=== PATIENT | male | born 1960 | race Caucasian/White ===

== ENCOUNTER 2016-10-30 17:44 | Observation (INO) ==
[2016-10-30] MEDS ORDERED: 0.9 % SODIUM CHLORIDE 1,000 ML IV ONE (17:54)
[2016-10-30] MEDS ORDERED: LACTATED RINGERS 1,000 ML IV ONE (18:34)
[2016-10-30] MEDS ORDERED: INSULIN GLARGINE, HUMAN 1 UNIT/0.01 ML SQ ONE (18:35)
[2016-10-30] MEDS ORDERED: INSULIN REGULAR, HUMAN 1 UNIT/0.01 ML UNIT IV ONE (18:35)
[2016-10-30] MEDS ORDERED: PANTOPRAZOLE 40 MG VIAL IV ONE (18:36)
[2016-10-30] MEDS ORDERED: ONDANSETRON 4 MG/2 ML VIAL IV ONE (18:37)
[2016-10-30] MEDS ORDERED: HYDROmorphone 2 MG/ML SYRINGE IV PRN (18:37)
--- NOTE | 2016-10-30 18:39 | Emergency Department Note ---
General Adult HPI - General Chief complaint: Blood Sugar Problem Time Seen by Provider: 10/30/16 18:33 Source: patient Mode of arrival: EMS Limitations: no limitations - History of Present Illness HPI Narrative: Patient seen at [facility] yesterday for similar presentation, he was hydrated and discharged to home. He does have a history of diabetes, some compliance issues, he states he takes Lantus 4 times a day. Today's blood sugar was high and he decided to come in, called the ambulance. He was having midepigastric abdominal pain as well. Not able to eat very much in the way of food, he does have nausea but no vomiting, no diarrhea. Abdominal pain is mostly mid epigastric. Denies any trauma is had no fevers or chills, denies any chest pain shortness of breath or cough. - Related Data Home Medications Medication Instructions Recorded Confirmed albuterol sulfate HFA 90 2 puff INHALATION Q4H PRN g 08/03/16 09/13/16 mcg/actuation aerosol inhaler clopidogrel 75 mg tablet 75 mg PO QDAY 08/03/16 09/13/16 gabapentin 600 mg tablet 600 mg PO TID 08/03/16 09/13/16 glipizide 10 mg tablet 10 mg PO QDAY 08/03/16 09/13/16 insulin aspart 100 unit/mL 10 unit SUB-Q TID ml 08/03/16 09/13/16 subcutaneous solution insulin glargine 100 unit/mL 20 unit SUB-Q QDAY ml 08/03/16 09/13/16 subcutaneous solution lisinopril 5 mg tablet 5 mg PO QDAY 08/03/16 09/13/16 mirtazapine 30 mg tablet 30 mg PO QDAY tab 08/03/16 09/13/16 pregabalin 200 mg capsule 200 mg PO BID cap 08/03/16 09/13/16 rosuvastatin 10 mg tablet 10 mg PO QDAY 08/03/16 09/13/16 sertraline 50 mg tablet 50 mg PO QDAY 08/03/16 09/13/16 tiotropium bromide 18 mcg capsule 1 cap INHALATION QDAY 08/03/16 09/13/16 with inhalation device tizanidine 4 mg capsule 8 mg PO TID cap 08/03/16 09/13/16 trazodone 150 mg tablet 150 mg PO QHS PRN 08/03/16 09/13/16 umeclidinium 62.5 mcg/actuation 1 inh INHALATION Q24H 08/03/16 09/13/16 blister powder for inhalation Previous Rx's Medication Instructions Recorded hydroxychloroquine 200 mg tablet 200 mg PO BID #60 tab 09/13/16 nabumetone 500 mg tablet 500 mg PO BID #60 tab 09/13/16 Allergies Allergy/AdvReac Type Severity Reaction Status Date / Time NKDA Allergy Unknown None Stated Uncoded 09/13/16 08:08 Review of Systems All systems ED: reviewed and negative except as stated. Past Medical History - Past Medical History Source: nursing notes reviewed Medical history: Reports: arthritis, diabetes, kidney stones, liver disease, renal disease Surgical history ED: Reports: non-contributory Family history: Reports: no significant family history - Social History smoking status: Current every day smoker Alcohol use: Reports: Rarely Drug use: Reports: none Physical Exam - General Limitations: no limitations General appearance: alert, in no apparent distress, other (In general appears quite a bit old older than stated age) - Head Head exam: atraumatic, normocephalic - Eye Eye exam: Present: normal appearance, PERRL, EOMI - ENT ENT exam: normal exam, normal oropharynx, mucous membranes dry, TM's normal bilaterally - Neck Neck exam: Present: normal inspection, full ROM, trachea midline - Chest Chest inspection: Present: normal inspection, symmetric chest wall rise - Respiratory Respiratory exam: Present: normal lung sounds bilaterally. Absent: respiratory distress, wheezes - Cardiovascular Cardiovascular exam: Present: regular rate, normal rhythm - Abdominal Exam Abdominal exam: Present: soft, tenderness, normal bowel sounds. Absent: distention, guarding Abdominal tenderness: Present: epigastrium, mild - exam: Present: normal inspection - Extremities Exam Extremities exam: Present: normal inspection - Back Exam Back exam: Present: normal inspection. Absent: CVA tenderness (R), CVA tenderness (L) - Neurological Exam Neurological exam: Present: alert, oriented X3 - Psychiatric Psychiatric exam: Present: normal affect - Skin Skin exam: Present: warm, dry, intact Course Vital Signs Temperature 98.7 F 10/30/16 17:45 Pulse Rate 75 10/30/16 17:45 Respiratory Rate 24 H 10/30/16 17:45 Blood Pressure 106/63 10/30/16 17:45 Pulse Oximetry (%) 95 10/30/16 17:45 Temperature 97.6 F 10/30/16 22:52 Pulse Rate 63 10/30/16 22:38 Respiratory Rate 14 10/30/16 20:01 Blood Pressure 104/56 10/30/16 22:31 Pulse Oximetry (%) 89 L 10/30/16 22:38 Medical Decision Making - MDM Narrative Medical decision making narrative: Discussed the case with Dr. Bentley, at this point there is no logical explanation of why his blood pressure is low and we did start him on dopamine drip and is currently on 5 mics per kilo per minute and this did keep his blood pressure in the 110 range. He looks clinically well, his abdominal exam does not suggest any acute intra-abdominal pathology, urine test is still pending however. His CRP was elevated however his white blood cell count was normal, rectal exam was negative with heme negative stools. Prostate was nontender. We will continue IV fluids and monitor his sugars, he will need to be admitted observation at this point for #1 hypotension #2 hyperglycemia. - Medical Records Medical records reviewed: Yes I reviewed the patient's medical records. - Lab Data Lab results reviewed: Yes I reviewed the patient's lab results. Result diagrams: 10/30/16 18:08 10/30/16 18:08 Lab Results 10/30/16 10/30/16 10/30/16 Range/Units 18:08 18:08 18:08 WBC 10.0 (4.5-11.0) K/mcL RBC 4.63 (4.50-5.90) M/mcL Hgb 13.1 L (13.5-16.5) g/dL Hct 37.0 L (41.0-55.0) % MCV 79.9 L (80.0-100.0) fL MCH 28.3 (26.0-34.0) pg MCHC 35.5 (31.0-36.0) g/dL RDW 13.0 (11.5-14.5) % Plt Count 159 (140-440) K/mcL MPV 11.7 H (7.4-10.4) fL Gran % 72.6 (38.0-78.0) % Lymph % (Auto) 20.0 (15.5-49.0) % Limestone % (Auto) 6.0 (1.0-12.0) % Eos % (Auto) 1.0 (0.0-7.0) % Baso % (Auto) 0.4 (0.0-2.0) % Gran # 7.3 (1.8-8.0) K/mcL Lymph # (Auto) 2.0 (1.5-4.8) K/mcL Limestone # (Auto) 0.6 (0.1-0.9) K/mcL Eos # (Auto) 0.1 (0.0-0.7) K/mcL Baso # (Auto) 0 (0.0-0.3) K/mcL VBG Lactic Acid (0.5-2.2) mmol/L Sodium 129 L (133-145) mmol/L Potassium 3.6 (3.3-5.1) mmol/L Chloride 91 L (96-108) mmol/L Carbon Dioxide 22 (22-30) mmol/L Anion Gap 16.0 (8-16) BUN 11 (6-20) mg/dl Creatinine 0.7 (0.7-1.2) mg/dl GFR Calculation 106 Glucose 406 H (70-105) mg/dL Osmolality (280-300) mOSM/kg Calcium 9.2 (8.6-10.4) mg/dl Total Bilirubin 0.5 (0.0-1.0) mg/dL AST < 5 (0-37) U/l ALT < 5 (0-40) U/l Alkaline Phosphatase 146 H (39-117) U/L Troponin T < 0.01 (0-0.03) ng/ml C-Reactive Protein (0.0-0.8) mg/dl NT-Pro-B Natriuret Pep (0-125) pg/ml Total Protein 6.9 (5.9-8.4) gm/dL Albumin 3.2 (3.2-5.2) gm/dL Globulin 3.7 (2.2-3.7) gm/dL Albumin/Globulin Ratio 0.9 L (1.0-2.3) 10/30/16 10/30/16 10/30/16 Range/Units 18:08 18:46 18:46 WBC (4.5-11.0) K/mcL RBC (4.50-5.90) M/mcL Hgb (13.5-16.5) g/dL Hct (41.0-55.0) % MCV (80.0-100.0) fL MCH (26.0-34.0) pg MCHC (31.0-36.0) g/dL RDW (11.5-14.5) % Plt Count (140-440) K/mcL MPV (7.4-10.4) fL Gran % (38.0-78.0) % Lymph % (Auto) (15.5-49.0) % Limestone % (Auto) (1.0-12.0) % Eos % (Auto) (0.0-7.0) % Baso % (Auto) (0.0-2.0) % Gran # (1.8-8.0) K/mcL Lymph # (Auto) (1.5-4.8) K/mcL Limestone # (Auto) (0.1-0.9) K/mcL Eos # (Auto) (0.0-0.7) K/mcL Baso # (Auto) (0.0-0.3) K/mcL VBG Lactic Acid 1.1 (0.5-2.2) mmol/L Sodium (133-145) mmol/L Potassium (3.3-5.1) mmol/L Chloride (96-108) mmol/L Carbon Dioxide (22-30) mmol/L Anion Gap (8-16) BUN (6-20) mg/dl Creatinine (0.7-1.2) mg/dl GFR Calculation Glucose (70-105) mg/dL Osmolality 292 (280-300) mOSM/kg Calcium (8.6-10.4) mg/dl Total Bilirubin (0.0-1.0) mg/dL AST (0-37) U/l ALT (0-40) U/l Alkaline Phosphatase (39-117) U/L Troponin T (0-0.03) ng/ml C-Reactive Protein 9.5 H (0.0-0.8) mg/dl NT-Pro-B Natriuret Pep 73.0 (0-125) pg/ml Total Protein (5.9-8.4) gm/dL Albumin (3.2-5.2) gm/dL Globulin (2.2-3.7) gm/dL Albumin/Globulin Ratio (1.0-2.3) - Radiology Data Radiology results reviewed: Yes I reviewed the patient's radiology results. Disposition Disposition: Xfer As Outpt/Obs ([facility]) Condition: Fair Referrals: Kinjal Hairston DO [Primary Care Provider] -
[2016-10-30 18:59] LABS: Albumin 3.2 gm/dL (3.2-5.2); Albumin/Globulin Ratio 0.9 (1.0-2.3); Alkaline Phosphatase 146 U/L (39-117); Blood Urea Nitrogen 11 mg/dl (6-20)
[2016-10-30 19:08] LABS: ALT/SGPT < 5 U/l (0-40)
[2016-10-30] MEDS ORDERED: 0.9 % SODIUM CHLORIDE 250 ML IV SCH (19:15)
[2016-10-30] MEDS ORDERED: DOPamine 400 MG in PREMIX 1 BAG IV SCH (19:15)
[2016-10-30 19:22] LABS: Basophils # (Auto) 0 K/mcL (0.0-0.3); Basophils % (Auto) 0.4 % (0.0-2.0); Eosinophils # (Auto) 0.1 K/mcL (0.0-0.7); Granulocytes % (Auto) 72.6 % (38.0-78.0); Mean Cell Volume 79.9 fL (80.0-100.0); Mean Corpuscular HGB Conc 35.5 g/dL (31.0-36.0); Mean Corpuscular Hemoglobin 28.3 pg (26.0-34.0); Monocytes # (Auto) 0.6 K/mcL (0.1-0.9); Platelet Count 159 K/mcL (140-440); RBC 4.63 M/mcL (4.50-5.90)
[2016-10-30 19:42] LABS: C-Reactive Protein 9.5 mg/dl (0.0-0.8)
--- NOTE | 2016-10-30 23:27 | Internal Med History&Physical ---
Medical - H&P: HPI Patient information: Note initiated : 10/30/16 at 11:27 pm Patient: Jordi Nice 56 y/o M admitted on for Cough. History of present illness: Mr. Nice is a 56 year old man with type 2 diabetes. This has recently been poorly controlled. He apparently was at [facility] yesterday with severe hyperglycemia. He was given IV fluids and instructions on increasing his insulin. He presented back to our emergency room this evening, complaining of abdominal pain and nausea, which her symptoms he often gets when his blood sugar is high. He was given fluids and insulin in the emergency room, but was also found to have significant hypotension with blood pressures as low as the 60s systolic. He is now admitted for ongoing fluid resuscitation, further workup and treatment , management of his diabetes. The patient is a somewhat difficult interview. He appears slightly lethargic. He denies recent fever or chills, headaches or dizziness, new eye or ear symptoms. He denies sore throat or cough. He does report that he is having some generalized chest discomfort and feels mildly short of breath, for about 1 month now. He also reports significant abdominal discomfort, but no nausea or vomiting or diarrhea. He denies dysuria. He admits that he was not taking his insulin correctly. He apparently was having low blood glucoses at one point, and he says his primary care physician advised him to stop using his NovoLog with meals, and just use Lantus twice a day. He apparently misunderstood her, but then did not take any insulin at all for a short time. Then when he realized his blood sugars were very high, he started using Lantus every 4 hours while awake. He did not really understand the difference between long-acting and short acting insulin. Interestingly, he is also been started on an anti-inflammatory drug, nabumetone , recently by his rail grinder, for severe hand pain. This is actually a high risk drug in a diabetic with known underlying coronary disease. He was started on dopamine and IV fluids in the emergency room. On arrival to the intensive care unit, dopamine was discontinued, and he was started on levo fed. Medical History Fibromyalgia (Acute) Diabetic cheirarthropathy (Acute) Encounter for long-term (current) use of high-risk medication (Acute) Raynaud phenomenon (Acute) Connective tissue disease (Suspected) Buerger's disease (Chronic) BPH (benign prostatic hyperplasia) (Chronic) CAD (coronary artery disease) (Chronic) Colitis, ulcerative (Chronic) Diastasis of muscle (Chronic) Hyperglyceridemia (Chronic) Low back pain (Chronic) Obesity (Chronic) Raynauds syndrome (Chronic) Seizures (Chronic) Sexual dysfunction (Chronic) AUGUSTUS positive (Acute) Diabetes mellitus (Chronic) Diabetic renal disease (Chronic) Diabetic neuropathy (Chronic) Depressive disorder (Chronic) Tobacco dependence syndrome (Chronic) Insomnia (Chronic) Obstructive sleep apnea of adult (Chronic) Chronic pain (Chronic 11/26/12) Epilepsy (Chronic 11/26/12) Glaucoma (Chronic) Hypertensive retinopathy (Chronic) Cataract (Chronic) Essential hypertension (Chronic) Chronic obstructive lung disease (Chronic) Coronary atherosclerosis (Chronic) GERD (gastroesophageal reflux disease) (Chronic) Multiple joint pain (Acute) Lumbar radiculopathy (Chronic) Chronic back pain (Chronic) Degenerative, intervertebral disc (Chronic) Hypoxia (Chronic) 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 twice daily gabapentin 600 mg PO TID glipizide 10 mg PO QDAY insulin aspart (Novolog) --patient has not been taking this at all. insulin glargine (Lantus) 20 units -every 4-6 hours. lisinopril 5 mg PO QDAY mirtazapine 30 mg PO QDAY pregabalin (Lyrica) 200 mg PO BID rosuvastatin 10 mg PO QDAY sertraline 50 mg PO QDAY tiotropium bromide (Spiriva with HandiHaler) 1 cap Inhalation QDAY tizanidine 8 mg (2 x 4 mg) PO TID trazodone 150 mg PO QHS PRN umeclidinium 62.5 mcg/actuation (Incruse Ellipta) 1 inh Inhalation Q24H Allergies/Adverse Reactions NKDA Allergy Family History Mother , age 54 Malignant tumor of pancreas Father , age 70 Myocardial infarction He reports his brother also with diabetes and pancreatic cancer. He says a niece recently with diabetes and premature NC. Social History education level: high school; he lives with his significant other of 10+ years. occupational status: unemployed sexually active: Yes He is a current smoker, and smokes up to 1 pack per day. He previously drank alcohol heavily, but says he no longer drinks alcohol. He denies drug use, other than occasional marijuana.. Medical - H&P: Meds Home Medications Medication Instructions Recorded Confirmed Type albuterol sulfate HFA 90 2 puff INHALATION Q4H PRN g 08/03/16 09/13/16 History mcg/actuation aerosol inhaler clopidogrel 75 mg tablet 75 mg PO QDAY 08/03/16 09/13/16 History gabapentin 600 mg tablet 600 mg PO TID 08/03/16 09/13/16 History lisinopril 5 mg tablet 5 mg PO QDAY 08/03/16 09/13/16 History mirtazapine 30 mg tablet 30 mg PO QDAY tab 08/03/16 09/13/16 History pregabalin 200 mg capsule 200 mg PO BID cap 08/03/16 09/13/16 History rosuvastatin 10 mg tablet 10 mg PO QDAY 08/03/16 09/13/16 History sertraline 50 mg tablet 50 mg PO QDAY 08/03/16 09/13/16 History tiotropium bromide 18 mcg capsule 1 cap INHALATION QDAY 08/03/16 09/13/16 History with inhalation device tizanidine 4 mg capsule 8 mg PO TID cap 08/03/16 09/13/16 History trazodone 150 mg tablet 150 mg PO QHS PRN 08/03/16 09/13/16 History umeclidinium 62.5 mcg/actuation 1 inh INHALATION Q24H 08/03/16 09/13/16 History blister powder for inhalation hydroxychloroquine 200 mg tablet 200 mg PO BID #60 tab 09/13/16 09/13/16 Rx nabumetone 500 mg tablet 500 mg PO BID #60 tab 09/13/16 09/13/16 Rx Accu-Chek 1 each FS Q4 strip 10/31/16 Rx Acetaminophen [Tylenol] 650 mg PO Q4-6HP PRN tablet 06/28/17 Rx Gabapentin [Neurontin] 600 mg PO TID capsule 10/31/16 Rx Insulin Aspart [Novolog] 10 unit SUB-Q TIDAC #1 ml 10/31/16 Rx Insulin Glargine, Human [Lantus] 25 unit SUB-Q BID #1 ml 10/31/16 Rx Allergies Allergy/AdvReac Type Severity Reaction Status Date / Time NKDA Allergy Unknown None Stated Uncoded 09/13/16 08:08 Medical - H&P: Exam - Constitutional Vitals: Temp Pulse Resp BP Pulse Ox 97.6 F 63 14 104/56 89 L 10/30/16 22:52 10/30/16 22:38 10/30/16 20:01 10/30/16 22:31 10/30/16 22:38 On exam, the patient was fairly lethargic. Pressures in the emergency room ranged from 73-95/32-52. O2 saturation was 89% on arrival. Head: Normocephalic, atraumatic. Ears: Bilateral ear canals are mostly blocked by cerumen. Eyes: He does have a disconjugate gaze. Pupils appear round and reactive, anicteric. Pharynx: Appears clear. Mucosa is dry. He is edentulous. Neck: Appears supple, without obvious lymphadenopathy, JVD, thyromegaly, bruits. Cardiac exam shows regular rate and rhythm, with normal S1 and S2. There are no obvious murmurs, rubs, gallops. Lungs: Clear to auscultation, without obvious rales, rhonchi, wheezes. Abdomen: Is obese, but soft. He does complain of tenderness, particularly in the epigastric area, with palpation. There is otherwise no guarding or rebound. Bowel sounds are active. Extremities: Shows puffy edema of his feet and ankles. There is no obvious cyanosis or clubbing. Neurologic exam: The patient is lethargic. He tends to fall asleep mid sentence while answering my questions. He is otherwise calm and cooperative. Motor exam is grossly nonfocal. Skin exam did not show any rashes or other worrisome lesions. Medical - H&P: Reslt - Labs CBC & Chem 7: 10/31/16 03:57 10/31/16 03:57 Labs: Short CBC 10/30/16 Range/Units 18:08 WBC 10.0 (4.5-11.0) K/mcL Hgb 13.1 L (13.5-16.5) g/dL Hct 37.0 L (41.0-55.0) % Plt Count 159 (140-440) K/mcL BMP 10/30/16 18:08 Sodium 129 L Potassium 3.6 Chloride 91 L Carbon Dioxide 22 BUN 11 Creatinine 0.7 Glucose 406 H Calcium 9.2 Cardiac Enzymes 10/30/16 Range/Units 18:08 Troponin T < 0.01 (0-0.03) ng/ml Liver Function 10/30/16 Range/Units 18:08 Total Bilirubin 0.5 (0.0-1.0) mg/dL AST < 5 (0-37) U/l ALT < 5 (0-40) U/l Alkaline Phosphatase 146 H (39-117) U/L Albumin 3.2 (3.2-5.2) gm/dL Lactic acid is normal at 1.1 C-reactive protein is elevated at 9.5. BNP is normal at 73. Troponin is normal at less than 0.01. EKG: Shows normal sinus rhythm at about 70, with no acute ST-T changes Chest x-ray: He has borderline cardiomegaly. Pulmonary vessels showed mild cephalization, suggestive of mild CHF. Medical - H&P: A/P (1) Hypotension Status: Acute (2) Diabetic hyperosmolar non-ketotic state Status: Acute (3) Fibromyalgia Status: Chronic (4) CAD (coronary artery disease) Status: Chronic (5) Chronic obstructive lung disease Status: Chronic - Narrative A/P Narrative: #1. Cardiac. -Patient presents with persistent hypotension, uncertain cause. Initial cardiac enzymes are normal. He may be dehydrated related to ongoing hyperglycemia. There is no current sign of infection. -Admit to ICU/telemetry. -IV vasopressors as needed. IV fluids. The patient appears critically ill, but I suspect he will turn around quickly, and be discharged in less than 48 hours. He is therefore placed in an observation status. Blood and urine cultures. -If he does not improve by tomorrow, get urgent echocardiogram for follow-up, although he had one just a few weeks ago. Check pro-calcitonin level. 2. CODE STATUS: Full code. 3. DVT prophylaxis: Subcu heparin. 4. Pulmonary. -History of COPD and obstructive sleep apnea. Resume CPAP when able, as well as nighttime oxygen. He apparently is on home O2 at night. 5. Rheumatologic. -History of fibromyalgia and Buerger's disease, and possible mixed connective tissue disorder. -Rheumatology had started him on an NSAID, but I feel this is a very high risk med for him, given his diabetes, renal disease, heart disease. 6. Psychiatric. -History of depression. 7. Endocrine. -Patient has uncontrolled diabetes with severe hyperglycemia. Accu-Cheks and sliding scale insulin every 4 hours, and IV fluids. Approximately 70 minutes was spent this evening, reviewing the patient's case with the ER MD, reviewing his old records, reviewing current test results, interviewing and examining him, and writing orders.
[2016-10-31] MEDS ORDERED: ACETAMINOPHEN 325 MG TABLET PO PRN (00:14)
[2016-10-31] MEDS ORDERED: ALBUTEROL SULFATE 2.5 MG/3 ML NEBULIZER NEB PRN (00:14)
[2016-10-31] MEDS ORDERED: 0.9 % SODIUM CHLORIDE 250 ML IV SCH ×2 (00:14→01:30)
[2016-10-31] MEDS ORDERED: POTASSIUM CHLORIDE 20 MEQ in 0.9 % SODIUM CHLORIDE 1,000 ML IV SCH ×2 (00:14→01:32)
[2016-10-31] MEDS ORDERED: ONDANSETRON 4 MG/2 ML VIAL IV PRN (00:14)
[2016-10-31] MEDS ORDERED: DOPamine 400 MG in PREMIX 1 BAG IV SCH (00:14)
[2016-10-31] MEDS ORDERED: MAGNESIUM HYDROXIDE 30 ML ORAL.SUSP PO PRN (00:14)
[2016-10-31] MEDS ORDERED: NITROGLYCERIN 0.4 MG TAB.SUBL SL PRN (00:14)
[2016-10-31] MEDS ORDERED: DEXTROSE 50% 50 ML VIAL IV PRN (00:14)
[2016-10-31] MEDS ORDERED: DOCUSATE SODIUM 100 MG CAPSULE PO PRN (00:14)
[2016-10-31] MEDS ORDERED: IPRATROPIUM/ALBUTEROL 3 ML AMPUL.NEB NEB SCH (01:00)
[2016-10-31] MEDS ORDERED: NOREPINEPHRINE BITARTRATE 8 MG in 0.9 % SODIUM CHLORIDE 242 ML IV SCH (01:30)
[2016-10-31 01:43] LABS: Appearance,Urine CLEAR; Bacteria,Urine 0 /hpf (0); Color,Urine YELLOW; Glucose,Urine (UA) >=500 mg/dL (NEG); Leukocyte Esterase,Urine NEG /uL (NEG); Mucus,Urine FEW /hpf (0); Nitrate,Urine NEG (NEG); Protein,Urine NEG (NEG); Specific Gravity,Urine 1.017 (1.000-1.035); Urine Blood NEG mg/dL (<0.03); Urine Hyaline Cast 32 /lpf (0-2); Urine RBC 1 /hpf (0-1); Urine Squamous Epithelial Cell 0 /hpf (0-4); Urine WBC 2 /hpf (0-4)
[2016-10-31] MEDS: INSULIN LISPRO 1 UNIT/0.01 ML UNIT SQ SCH ×2 (02:52→05:34)
[2016-10-31] MEDS ORDERED: INSULIN LISPRO 1 UNIT/0.01 ML UNIT SQ ONE ×2 (02:55→05:37)
[2016-10-31] MEDS ORDERED: NOREPINEPHRINE BITARTRATE 4 MG/4 ML AMPUL IV ONE (02:59)
[2016-10-31] MEDS: 0.9 % SODIUM CHLORIDE 250 ML IV SCH ×2 (03:08→05:32)
[2016-10-31] MEDS ORDERED: IPRATROPIUM/ALBUTEROL 3 ML AMPUL.NEB NEB ONE (03:23)
[2016-10-31 05:34] LABS: Basophils # (Auto) 0 K/mcL (0.0-0.3); Basophils % (Auto) 0.3 % (0.0-2.0); Eosinophils # (Auto) 0.2 K/mcL (0.0-0.7); Eosinophils % (Auto) 1.6 % (0.0-7.0); Granulocytes % (Auto) 69.8 % (38.0-78.0); Lymphocytes # (Auto) 2.6 K/mcL (1.5-4.8); Mean Cell Volume 82.3 fL (80.0-100.0); Mean Corpuscular HGB Conc 34.9 g/dL (31.0-36.0); Mean Corpuscular Hemoglobin 28.7 pg (26.0-34.0); Monocytes # (Auto) 0.6 K/mcL (0.1-0.9); Monocytes % (Auto) 5.3 % (1.0-12.0); Platelet Count 165 K/mcL (140-440); RBC 3.97 M/mcL (4.50-5.90); Red Cell Distribution Width 13.6 % (11.5-14.5)
[2016-10-31] MEDS ORDERED: 0.9 % SODIUM CHLORIDE 10 ML SYRINGE IV SCH (06:00)
[2016-10-31 06:25] LABS: Hemoglobin A1C 11.4 % HGB (4.0-6.0)
[2016-10-31] MEDS ORDERED: NOREPINEPHRINE BITARTRATE 8 MG in 0.9 % SODIUM CHLORIDE 242 ML IV PRN (07:15)
[2016-10-31] MEDS ORDERED: NACL 0.9% W/KCL 20MEQ 1,000 ML IV SCH (07:15)
--- NOTE | 2016-10-31 07:22 | XRay Report ---
CLINICAL INFORMATION: Chest pain COMPARISON: 08/15/2016 FINDINGS: The heart is at the upper limits of normal in size. Mediastinum is unremarkable. Pulmonary vessels show slight cephalization. There is minor left basilar atelectasis. No effusion IMPRESSION: Mild cephalization of pulmonary vasculature which is suggestive, but not diagnostic, of mild CHF or volume overload. Please correlate clinically Interpreted and Authenticated by: Zeus Lindsay 10/31/16
[2016-10-31] MEDS ORDERED: INSULIN LISPRO 1 UNIT/0.01 ML UNIT SQ SCH ×2 (07:30→08:00)
[2016-10-31 07:40] LABS: ALT/SGPT 21 U/l (0-40); Alkaline Phosphatase 119 U/L (39-117); Bilirubin,Direct < 0.2 mg/dL (0.0-0.3); Blood Urea Nitrogen 14 mg/dl (6-20); Gamma Glutamyl Transpeptidase 94 U/L (8-61); Magnesium 1.6 mg/dL (1.6-2.5); Uric Acid 4.1 mg/dL (2.5-8.0)
[2016-10-31] MEDS ORDERED: CLOPIDOGREL 75 MG TABLET PO SCH (09:00)
[2016-10-31] MEDS ORDERED: GABAPENTIN 300 MG CAPSULE PO SCH (09:00)
[2016-10-31] MEDS ORDERED: INSULIN GLARGINE, HUMAN 1 UNIT/0.01 ML SQ SCH (09:00)
--- NOTE | 2016-10-31 11:24 | Discharge Summary ---
Medical - DS: Prov Patient information: Note initiated : 10/31/16 at 11:11 am Service Date, if different from initiated Date: [] Patient: Jordi Nice 56 y/o M admitted on 10/30/16 for Cough. Chief Complaint: [] Date of admission: 10/30/16 23:55 Discharge date: 10/31/16 Primary care physician: Kinjal mayer [facility] Admitting clinician: Aida Salguero Attending physician on discharge: Aida Salguero Medical - DS: Meds - Discharge Medications Prescriptions: Insulin Aspart [Novolog] 10 unit SUB-Q TIDAC #1 ml Insulin Glargine, Human [Lantus] 25 unit SUB-Q BID #1 ml Active and Home Medications: Discharge medication list: Lantus 30 units twice a day. NovoLog sliding scale, or 10 units, with each meal. Albuterol inhaler as needed Plavix 75 mg daily Gabapentin 600 mg 3 times daily Glipizidediscontinue. Lisinopril 5 mg daily Mirtazapine 30 mg daily Pregabalin 200 mg twice daily Crestor 10 mg daily Sertraline 50 mg daily Spiriva 1 cap daily inhaled Tizanidine 4 mg 1-2 tabs 3 times daily Trazodone 150 mg nightly as needed Incruse Ellipta 1 inhalation every 24 hours Nabumetone 500 mg twice a day Previous home Medications: albuterol sulfate HFA 90 mcg/actuation aerosol inhaler 2 puff INHALATION Q4H PRN g 08/03/16 [History Confirmed 09/13/16 Last Taken Unknown] clopidogrel 75 mg tablet 75 mg PO QDAY 08/03/16 [History Confirmed 09/13/16 Last Taken Unknown] gabapentin 600 mg tablet 600 mg PO TID 08/03/16 [History Confirmed 09/13/16 Last Taken Unknown] glipizide 10 mg tablet 10 mg PO QDAY 08/03/16 [History Confirmed 09/13/16 Last Taken Unknown] insulin aspart 100 unit/mL subcutaneous solution 10 unit SUB-Q TID ml 08/03/16 [History Confirmed 09/13/16 Last Taken Unknown] insulin glargine 100 unit/mL subcutaneous solution 20 unit SUB-Q QDAY ml [History Confirmed 09/13/16 Last Taken Unknown] lisinopril 5 mg tablet 5 mg PO QDAY 08/03/16 [History Confirmed 09/13/16 Last Taken Unknown] mirtazapine 30 mg tablet 30 mg PO QDAY tab 08/03/16 [History Confirmed Last Taken Unknown] pregabalin 200 mg capsule 200 mg PO BID cap 08/03/16 [History Confirmed Last Taken Unknown] rosuvastatin 10 mg tablet 10 mg PO QDAY 08/03/16 [History Confirmed 09/13/16 Last Taken Unknown] sertraline 50 mg tablet 50 mg PO QDAY 08/03/16 [History Confirmed 09/13/16 Last Taken Unknown] tiotropium bromide 18 mcg capsule with inhalation device 1 cap INHALATION QDAY 08/03/16 [History Confirmed 09/13/16 Last Taken Unknown] tizanidine 4 mg capsule 8 mg PO TID cap 08/03/16 [History Confirmed 09/13/16 Last Taken Unknown] trazodone 150 mg tablet 150 mg PO QHS PRN 08/03/16 [History Confirmed 09/13/16 Last Taken Unknown] umeclidinium 62.5 mcg/actuation blister powder for inhalation 1 inh INHALATION Q24H 08/03/16 [History Confirmed 09/13/16 Last Taken Unknown] hydroxychloroquine 200 mg tablet 200 mg PO BID #60 tab 09/13/16 [Rx Confirmed Last Taken Unknown] nabumetone 500 mg tablet 500 mg PO BID #60 tab 09/13/16 [Rx Confirmed 09/13/16 Last Taken Unknown] Medical - DS: Hosp Hospital course: October 30, 2016: History of present illness: Mr. Nice is a 56 year old man with type 2 diabetes. This has recently been poorly controlled. He apparently was at yesterday with severe hyperglycemia. He was given IV fluids and instructions on increasing his insulin. He presented back to our emergency room this evening, complaining of abdominal pain and nausea, which her symptoms he often gets when his blood sugar is high. He was given fluids and insulin in the emergency room, but was also found to have significant hypotension with blood pressures as low as the 60s systolic. He is now admitted for ongoing fluid resuscitation, further workup and treatment , management of his diabetes. The patient is a somewhat difficult interview. He appears slightly lethargic. He denies recent fever or chills, headaches or dizziness, new eye or ear symptoms. He denies sore throat or cough. He does report that he is having some generalized chest discomfort and feels mildly short of breath, for about 1 month now. He also reports significant abdominal discomfort, but no nausea or vomiting or diarrhea. He denies dysuria. He admits that he was not taking his insulin correctly. He apparently was having low blood glucoses at one point, and he says his primary care physician advised him to stop using his NovoLog with meals, and just use Lantus twice a day. He apparently misunderstood her, but then did not take any insulin at all for a short time. Then when he realized his blood sugars were very high, he started using Lantus every 4 hours while awake. He did not really understand the difference between long-acting and short acting insulin. Interestingly, he is also been started on an anti-inflammatory drug, nabumetone , recently by his anesthesia attending, for severe hand pain. This is actually a high risk drug in a diabetic with known underlying coronary disease. He was started on dopamine and IV fluids in the emergency room. On arrival to the intensive care unit, dopamine was discontinued, and he was started on levophed. October 31, 2016: Hospital course: The patient was treated with IV fluids and Levophed overnight. Blood pressures had stabilized by early this morning. Levophed was weaned to off. Blood pressures seem to stay stable. I was hoping to watch the patient for at least another 12 hours, but his significant other arrived, and they were both quite adamant that he be allowed to leave. We discussed his diabetes management at length. I reviewed with him that Lantus should never be used every 4 hours on a sliding scale. I strongly encouraged him to go back to using Lantus once or twice a day, and then cover every meal with NovoLog. Hemoglobin A1c is markedly elevated at 11%. Triglycerides are also quite high at 1075. Follow-up troponin this morning was normal. BNP was normal last night. Otherwise, today, he denies fever or chills, chest pain or palpitations, shortness of breath. He says his abdominal pain is resolved. He denies nausea or vomiting, diarrhea or constipation, dysuria. -He notes he does continue to smoke, and he understands that he really needs to work on giving that up. On exam, he is sitting up on the side of his bed. He is much clearer headed, and answers questions appropriately. Neck is supple without obvious lymphadenopathy or JVD. Cardiac exam shows regular rate and rhythm. Lungs are clear to auscultation. Abdomen is soft and nontender. Extremities show mild puffy edema of his feet and ankles. Assessment and plan: #1. Cardiac. She presented with significant hypotension last evening, worrisome for cardiogenic shock. However, he did respond quite quickly to IV fluids and vasopressors. He feels back to normal this morning. I suspect he had significant dehydration related to extreme hyperglycemia that is likely been going on for several weeks. Blood and urine cultures are pending. 2. CODE STATUS: Full code. 3. DVT prophylaxis: Subcu heparin. 4. Pulmonary. -History of COPD and obstructive sleep apnea. Resume CPAP when able, as well as nighttime oxygen. He apparently is on home O2 at night. 5. Rheumatologic. -History of fibromyalgia and Buerger's disease, and possible mixed connective tissue disorder. -Rheumatology had started him on an NSAID, but I feel this is a very high risk med for him, given his diabetes, renal disease, heart disease. 6. Psychiatric. -History of depression. 7. Endocrine. -Patient has uncontrolled diabetes with severe hyperglycemia. -This was discussed at length with the patient and his significant other today. I have asked him to go back to taking Lantus 30 units twice a day. He is then to use NovoLog with each meal. He can either use 20 units with each meal, or use his previous NovoLog sliding scale. -I have asked him to discontinue his glipizide, as I did touch base with his primary care provider today, and she notes that he was getting hypoglycemic a few months ago. I think, given his degree of understanding of his illness, he would probably be safer without an oral hypoglycemic. -It is not clear why he is not on metformin, and this may need to be revisited, as this would go nicely with his insulin treatment. #8. Neurologic. Peripheral neuropathy. Reviewing his medication list, he is on both gabapentin and pregabalin. I reviewed this with his PCP, and she says he refuses to give up the gabapentin, even though it was not working well alone for his neuropathy. I discussed with her that generally these are not used together. Next 9. Tobacco abuse. Patient was strongly discouraged from smoking. We discussed that in his case, smoking is very dangerous, due to his diabetes. He asked about using marijuana, and I told him that might in fact be safer, but again he should not smoke it. He may want to take it in an oral form. He reports that he previously drank alcohol heavily, and I reminded him that 1- 2 glasses a day is acceptable, but more than that would be harmful. #10. Patient has significant hyper triglyceridemia today. He should continue Crestor. Consideration could be given to adding a fibrate. Approximately 40 minutes was spent today, interviewing and examining the patient , reviewing test results, reviewing plan of care with the patient and his significant other, and writing orders. Discharge diagnosis: Hypotension. Severe dehydration. Nonketotic hyperglycemia. Time spent discussing smoking cessation with patient: 3 to 10 minutes - Time Spent with Patient Total time spent providing and/or coordinating discharge services: Medical - DS: Exam - Constitutional Vitals: Vital Signs Temp Pulse Pulse Resp BP BP Pulse Ox 10/31/16 07:36 62 16 97 10/31/16 07:31 64 17 100/68 95 10/31/16 07:18 96 10/31/16 07:16 60 12 102/67 98 10/31/16 07:01 61 14 93/63 95 10/31/16 06:46 66 21 104/64 93 10/31/16 06:01 14 134/82 10/31/16 06:00 18 98 10/31/16 05:56 63 17 97 10/31/16 05:31 61 12 109/65 96 10/31/16 05:16 61 14 108/66 97 10/31/16 05:01 57 L 16 112/70 97 10/31/16 04:46 56 L 13 96/69 100 10/31/16 04:31 54 L 12 103/67 100 10/31/16 04:16 52 L 12 101/64 100 10/31/16 04:15 53 L 13 100 10/31/16 04:05 51 L 13 102/68 100 10/31/16 03:46 54 L 12 96/66 100 10/31/16 03:31 52 L 12 92/63 98 10/31/16 03:21 66 13 85/50 91 10/31/16 03:00 60 18 10/31/16 02:45 55 L 13 90/53 98 10/31/16 02:31 55 L 12 102/58 98 10/31/16 02:16 53 L 12 100/58 99 10/31/16 02:01 53 L 12 96/56 96 10/31/16 01:19 58 L 11 L 87 L 10/31/16 01:16 57 L 12 80/48 88 L 10/31/16 01:01 58 L 13 89/54 89 L 10/31/16 00:56 62 12 96/54 88 L 10/31/16 00:48 59 L 14 88/43 89 L 10/31/16 00:31 58 L 15 100/56 92 10/31/16 00:30 97.8 F 78 16 108/68 100 10/31/16 00:17 18 108/68 10/31/16 00:14 22 134/115 Intake and Output 10/30/16 10/31/16 10/31/16 21:59 05:59 13:59 Intake Total 50 / 50 Output Total 1000 / 1000 Balance -950 / -950 Intake: IV 50 / 50 Output: Void Amount 1000 / 1000 Other: Weight 218 lb Medical - DS: Data Labs on day of discharge: Labs from last 24 hours 10/31/16 10/31/16 10/31/16 03:57 03:57 03:57 WBC 11.2 H RBC 3.97 L Hgb 11.4 L Hct 32.7 L MCV 82.3 MCH 28.7 MCHC 34.9 RDW 13.6 Plt Count 165 MPV 11.6 H Gran % 69.8 Lymph % (Auto) 23.0 [place] % (Auto) 5.3 Eos % (Auto) 1.6 Baso % (Auto) 0.3 Gran # 7.8 Lymph # (Auto) 2.6 [place] # (Auto) 0.6 Eos # (Auto) 0.2 Baso # (Auto) 0 Sodium Potassium Chloride Carbon Dioxide Anion Gap BUN Creatinine GFR Calculation Glucose Hemoglobin A1c 11.4 H Estim Average Glucose 280 Uric Acid Calcium Phosphorus Magnesium Total Bilirubin Direct Bilirubin GGT AST ALT Alkaline Phosphatase Lactate Dehydrogenase Troponin T < 0.01 Total Protein Albumin Globulin Albumin/Globulin Ratio Triglycerides Procalcitonin 10/31/16 10/31/16 03:57 00:30 WBC RBC Hgb Hct MCV MCH MCHC RDW Plt Count MPV Gran % Lymph % (Auto) [place] % (Auto) Eos % (Auto) Baso % (Auto) Gran # Lymph # (Auto) [place] # (Auto) Eos # (Auto) Baso # (Auto) Sodium 136 Potassium 4.2 Chloride 101 Carbon Dioxide 20 L Anion Gap 15.0 BUN 14 Creatinine 0.8 GFR Calculation 100 Glucose 296 H Hemoglobin A1c Estim Average Glucose Uric Acid 4.1 Calcium 8.4 L Phosphorus 3.9 Magnesium 1.6 Total Bilirubin 0.5 Direct Bilirubin < 0.2 GGT 94 H AST 19 ALT 21 Alkaline Phosphatase 119 H Lactate Dehydrogenase 139 Troponin T Total Protein 6.0 Albumin 3.0 L Globulin 3.0 Albumin/Globulin Ratio 1.0 Triglycerides 1075 H Procalcitonin 0.07 October 31: Pro-calcitonin was normal at 0.07 October 30: Lactic acid is normal at 1.1 C-reactive protein is elevated at 9.5. BNP is normal at 73. Troponin is normal at less than 0.01. EKG: Shows normal sinus rhythm at about 70, with no acute ST-T changes Chest x-ray: He has borderline cardiomegaly. Pulmonary vessels showed mild cephalization, suggestive of mild CHF. Urinalysis shows greater than 500 mg of glucose, 5 ketones, 4.0 bilirubin, 4.0 urobilinogen, 32 hyaline casts Medical - DS: A/P - Patient/Caregiver Discharge Instructions Activity: increase activity as tolerated Diet: Cardiac, Consistent Carbohydrate Additional Instructions: 1. Uncontrolled diabetes. You had severely elevated glucose last night. This caused severe dehydration and low blood pressure. Hemoglobin A1c was very high at 11%. Please resume Lantus 30 units twice a day. Please resume NovoLog 10 units with each meal, or use your NovoLog sliding scale with each meal. Goal blood sugars are 80-110 before meals, and around 140 before bed. Please contact your doctor if your glucoses are much lower or much higher than these ranges. Please stop the glipizide for now, until we see where your glucoses settle out. Please stay well hydrated. Drink water and other non-sugary drinks. #2. Your medication list indicates that you are taking both gabapentin and pregabalin. These ordinarily are not taken together. Please review this with your neurologist and other doctors, as one of these may need to be stopped. 3. Please discontinue smoking, as this doubles your risk of heart attack and stroke. 4. You are taking an anti-inflammatory drug called nabumetone. This can be hard on your kidneys, and increase your risk of heart attack and stroke. He may want to discuss other options with your anesthesia attending. Prescriptions: Insulin Aspart [Novolog] 10 unit SUB-Q TIDAC #1 ml Insulin Glargine, Human [Lantus] 25 unit SUB-Q BID #1 ml - Problem Maintenance (1) Hypotension Status: Acute (2) Diabetic hyperosmolar non-ketotic state Status: Acute (3) Fibromyalgia Status: Chronic (4) CAD (coronary artery disease) Status: Chronic Qualifiers: Coronary Disease-Associated Artery/Lesion type: q[place]in artery (5) Chronic obstructive lung disease Status: Chronic - Follow up Plan Follow up with: Kinjal Hairston DO [Primary Care Provider] - 11/05/16 3:00 pm Disposition: Home, Self-Care Prognosis: Fair Rehab Potential: Fair Overall status at discharge: patient is progressing back to baseline Medical - DS: Qual - VTE Deep Vein Thrombosis/Pulmonary Embolism Present on Admission: No
== END 2016-10-31 11:50 | disposition home or self-care (01) ==
LOC: ED 17:44 → ICU 17:44
PROVIDERS: ADMIT Internal Medicine; ATTEND Internal Medicine

== ENCOUNTER 2017-09-28 10:17 | Inpatient (IN) ==
[2017-09-28] MEDS ORDERED: 0.9 % SODIUM CHLORIDE 1,000 ML IV ONE (10:47)
[2017-09-28] MEDS ORDERED: INSULIN REGULAR, HUMAN 1 UNIT/0.01 ML UNIT IV ONE (10:59)
--- NOTE | 2017-09-28 11:09 | Emergency Department Note ---
Weakness HPI - General Chief complaint: Weakness Stated complaint: Weakness Time Seen by Provider: 09/28/17 10:33 Source: patient Mode of arrival: EMS Limitations: no limitations - History of Present Illness HPI Narrative: Patient presents, states that he feels generally "off". Feels like he is living in a fog, mildly weak generally. No nausea no emesis tolerating orals. Taking some insulin but cannot recall exactly much, acknowledges that he is very inconsistent. Seen yesterday through [facility], told his blood glucose was greater than 1000. No shortness of breath or chest pain above his baseline. No fevers or chills. Unclear about avoiding history - Related Data Home Medications Medication Instructions Recorded Confirmed albuterol sulfate HFA 90 2 puff INHALATION Q4H PRN g 08/03/16 02/06/17 mcg/actuation aerosol inhaler clopidogrel 75 mg tablet 75 mg PO QDAY 08/03/16 02/06/17 lisinopril 5 mg tablet 5 mg PO QDAY 08/03/16 02/06/17 mirtazapine 30 mg tablet 30 mg PO QDAY tab 08/03/16 02/06/17 pregabalin 200 mg capsule 200 mg PO BID cap 08/03/16 02/06/17 rosuvastatin 10 mg tablet 10 mg PO QDAY 08/03/16 02/06/17 sertraline 50 mg tablet 50 mg PO QDAY 08/03/16 02/06/17 tiotropium bromide 18 mcg capsule 1 cap INHALATION QDAY 08/03/16 02/06/17 with inhalation device tizanidine 4 mg capsule 8 mg PO TID cap 08/03/16 02/06/17 trazodone 150 mg tablet 150 mg PO QHS PRN 08/03/16 02/06/17 umeclidinium 62.5 mcg/actuation 1 inh INHALATION Q24H 08/03/16 02/06/17 blister powder for inhalation Previous Rx's Medication Instructions Recorded Accu-Chek 1 each FS Q4 strip 10/31/16 Acetaminophen [Tylenol] 650 mg PO Q4-6HP PRN tab 10/31/16 Insulin Aspart [Novolog] 10 unit SUB-Q TIDAC #1 ml 10/31/16 Insulin Glargine, Human [Lantus] 25 unit SUB-Q BID #1 ml 10/31/16 hydroxychloroquine 200 mg tablet 200 mg PO BID #60 tab 01/31/17 meloxicam 7.5 mg tablet 7.5 mg PO BID PRN #60 tab 02/06/17 Allergies Allergy/AdvReac Type Severity Reaction Status Date / Time NKDA Allergy Unknown None Stated Uncoded 09/13/16 08:08 Review of Systems All systems ED: reviewed and negative except as stated. Past Medical History - Past Medical History Attestation: Yes: The following information was validated with the patient. Medical history: Reports: arthritis, DM, kidney stones, liver disease, renal disease Surgical history ED: Reports: non-contributory - Social History smoking status: Heavy tobacco smoker Alcohol use: Reports: Rarely Drug use: Reports: none Physical Exam Limitations: no limitations General appearance: alert, malaise Head: atraumatic Eye: Present: miosis (constriction) ENT: mucous membranes dry Neck: Present: normal inspection. Absent: lymphadenopathy Chest: Present: normal inspection Respiratory: Present: normal lung sounds bilaterally. Absent: respiratory distress Cardiovascular: Present: regular rate, normal rhythm. Absent: systolic murmur Abdominal: Present: soft. Absent: tenderness Extremities: Present: other (postsurgical changes left hand) Back: Present: normal inspection Neurological: Present: alert, oriented X3 Psychiatric: Present: normal affect Skin: Present: warm, dry Course Vital Signs Temperature 97.0 F 09/28/17 10:18 Pulse Rate 80 09/28/17 10:18 Respiratory Rate 20 09/28/17 10:18 Blood Pressure 117/77 09/28/17 10:18 Pulse Oximetry (%) 97 09/28/17 10:18 Temperature 97.0 F 09/28/17 10:18 Pulse Rate 77 09/28/17 12:16 Respiratory Rate 15 09/28/17 12:32 Blood Pressure 132/113 09/28/17 12:32 Pulse Oximetry (%) 94 09/28/17 12:16 Weakness - Lab Data Lab results reviewed: Yes I reviewed the patient's lab results. Result diagrams: 09/28/17 10:45 09/28/17 10:45 Lab Results 09/28/17 09/28/17 09/28/17 Range/Units 10:45 10:45 10:45 WBC 8.7 (4.5-11.0) K/mcL RBC 4.96 (4.50-5.90) M/mcL Hgb 12.7 L (13.5-16.5) g/dL Hct 40.0 L (41.0-55.0) % POC Hct 41.0 (41.0-55.0) % MCV 80.6 (80.0-100.0) fL MCH 25.6 L (26.0-34.0) pg MCHC 31.8 (31.0-36.0) g/dL RDW 14.6 H (11.5-14.5) % Plt Count 268 (140-440) K/mcL MPV 13.8 H (7.4-10.4) fL Total Counted 100 Seg Neutrophils % 68 (38-78) % Band Neutrophils % 1 (0-10) % Lymphocytes % 26 (15-49) % Monocytes % (Manual) 3 (1-12) % Eosinophils % (Manual) 2 (0-7) % Platelet Estimate Normal (NORMAL) RBC Morphology Normal (NORMAL) ABG Methemoglobin 0.3 L (0.4-1.5) % VBG pH 7.38 (7.32-7.42) U VBG pCO2 38.4 L (41.0-51.0) mmHg VBG pO2 95 H (25-40) mmHg VBG HCO3 22.4 L (24.0-28.0) mmol/L VBG Total CO2 23.5 L (25.0-29.0) mmol/L VBG O2 Saturation 91.3 H (40.0-70.0) % VBG Base Excess -2.4 L (-2.0-2.0) VBG Lactic Acid (0.5-2.2) mmol/L Carboxyhemoglobin 5.7 H (0.0-1.5) % THgb Total Hemoglobin 12.9 L (13.5-16.5) gm/dL O2 Delivery Level Not Reportable POC Sodium 125 L (133-145) mmol/L Sodium TNP POC Potassium 5.3 H (3.3-5.1) mmol/L Potassium TNP POC Chloride 93 L (96-108) mmol/L Chloride TNP Carbon Dioxide TNP POC Total CO2 28 (22-30) mmol/L Anion Gap TNP POC BUN 26 H (6-20) mg/dl BUN TNP Creatinine TNP POC Creatinine 1.0 (0.7-1.2) mg/dl GFR Calculation TNP Glucose TNP POC Glucose > 700 H* (70-105) mg/dL Calcium TNP POC WB Ioniz Calcium 1.10 L (1.16-1.32) mmol/L Total Bilirubin TNP AST TNP ALT TNP Alkaline Phosphatase TNP Total Protein TNP Albumin TNP Globulin TNP Albumin/Globulin Ratio TNP Beta-Hydroxybutyrate Urine Color Urine Appearance Urine pH (5.0-9.0) Ur Specific [place] (1.000-1.035) Urine Protein (NEG) mg/dL Urine Glucose (UA) (NEG) mg/dL Urine Ketones (NEG) mg/dL Urine Occult Blood (<0.03) mg/dL Urine Nitrate (NEG) Urine Bilirubin (NEG) mg/dL Urine Urobilinogen (NEG) mg/dL Ur Leukocyte Esterase (NEG) /uL Urine RBC (0-1) /hpf Urine WBC (0-4) /hpf Ur Squamous Epith Cells (0-4) /hpf Urine Bacteria (0) /hpf Urine Yeast (Budding) (0) /hpf Ur Culture Indicated? 09/28/17 09/28/17 09/28/17 Range/Units 10:45 10:46 11:03 WBC (4.5-11.0) K/mcL RBC (4.50-5.90) M/mcL Hgb (13.5-16.5) g/dL Hct (41.0-55.0) % POC Hct (41.0-55.0) % MCV (80.0-100.0) fL MCH (26.0-34.0) pg MCHC (31.0-36.0) g/dL RDW (11.5-14.5) % Plt Count (140-440) K/mcL MPV (7.4-10.4) fL Total Counted Seg Neutrophils % (38-78) % Band Neutrophils % (0-10) % Lymphocytes % (15-49) % Monocytes % (Manual) (1-12) % Eosinophils % (Manual) (0-7) % Platelet Estimate (NORMAL) RBC Morphology (NORMAL) ABG Methemoglobin (0.4-1.5) % VBG pH (7.32-7.42) U VBG pCO2 (41.0-51.0) mmHg VBG pO2 (25-40) mmHg VBG HCO3 (24.0-28.0) mmol/L VBG Total CO2 (25.0-29.0) mmol/L VBG O2 Saturation (40.0-70.0) % VBG Base Excess (-2.0-2.0) VBG Lactic Acid 3.0 H (0.5-2.2) mmol/L Carboxyhemoglobin (0.0-1.5) % THgb Total Hemoglobin (13.5-16.5) gm/dL O2 Delivery Level POC Sodium (133-145) mmol/L Sodium POC Potassium (3.3-5.1) mmol/L Potassium POC Chloride (96-108) mmol/L Chloride Carbon Dioxide POC Total CO2 (22-30) mmol/L Anion Gap POC BUN (6-20) mg/dl BUN Creatinine POC Creatinine (0.7-1.2) mg/dl GFR Calculation Glucose POC Glucose (70-105) mg/dL Calcium POC WB Ioniz Calcium (1.16-1.32) mmol/L Total Bilirubin AST ALT Alkaline Phosphatase Total Protein Albumin Globulin Albumin/Globulin Ratio Beta-Hydroxybutyrate TNP Urine Color Straw Urine Appearance Clear Urine pH 6.0 (5.0-9.0) Ur Specific [place] 1.031 (1.000-1.035) Urine Protein Neg (NEG) mg/dL Urine Glucose (UA) >=500 A (NEG) mg/dL Urine Ketones Neg (NEG) mg/dL Urine Occult Blood Neg (<0.03) mg/dL Urine Nitrate Neg (NEG) Urine Bilirubin Neg (NEG) mg/dL Urine Urobilinogen Neg (NEG) mg/dL Ur Leukocyte Esterase 25 A (NEG) /uL Urine RBC 14 H (0-1) /hpf Urine WBC 3 (0-4) /hpf Ur Squamous Epith Cells 1 (0-4) /hpf Urine Bacteria 0 (0) /hpf Urine Yeast (Budding) Few A (0) /hpf Ur Culture Indicated? Yes - Radiology Data Radiology results reviewed: Yes I reviewed the patient's radiology results. - EKG Data EKG attestation: Yes I reviewed and interpreted this EKG. EKG shows normal: sinus rhythm Critical Care Time Critical Care Time: Yes Total Critical Care Time: 45 (severe hyperglycemia requiring IV insulin) Disposition Pt seen by DIRECTOR OF RECREATION THERAPY/PA only: No Clinical Impression: Diabetic ketoacidosis Disposition: Xfer As Inpt ([facility]) Condition: Serious Referrals: Kinjal Hairston DO [Primary Care Provider] -
[2017-09-28 11:14] LABS: ABG Methemoglobin 0.3 % (0.4-1.5); VBG Base Excess -2.4 (-2.0-2.0); VBG HCO3 22.4 mmol/L (24.0-28.0); VBG Oxygen Saturation 91.3 % (40.0-70.0); VBG PCO2 38.4 mmHg (41.0-51.0); VBG PH 7.38 U (7.32-7.42); VBG PO2 95 mmHg (25-40); VBG Total CO2 23.5 mmol/L (25.0-29.0)
[2017-09-28 11:24] LABS: Appearance,Urine CLEAR; Bacteria,Urine 0 /hpf (0); Bilirubin,Urine NEG (NEG); Color,Urine STRAW; Glucose,Urine (UA) >=500 mg/dL (NEG); Leukocyte Esterase,Urine 25 /uL (NEG); Protein,Urine NEG (NEG); Specific Gravity,Urine 1.031 (1.000-1.035); Urine Blood NEG mg/dL (<0.03); Urine Budding Yeast FEW /hpf (0); Urine RBC 14 /hpf (0-1); Urine Squamous Epithelial Cell 1 /hpf (0-4); Urine WBC 3 /hpf (0-4); Urobilinogen,Urine NEG (NEG)
[2017-09-28] MEDS ORDERED: ONDANSETRON 4 MG/2 ML VIAL IV ONE (11:40)
[2017-09-28] MEDS ORDERED: 0.9 % SODIUM CHLORIDE 1,000 ML IV SCH (11:45)
[2017-09-28 12:06] LABS: Mean Cell Volume 80.6 fL (80.0-100.0); Mean Corpuscular HGB Conc 31.8 g/dL (31.0-36.0); Mean Corpuscular Hemoglobin 25.6 pg (26.0-34.0); Platelet Count 268 K/mcL (140-440); RBC 4.96 M/mcL (4.50-5.90); Red Cell Distribution Width 14.6 % (11.5-14.5)
[2017-09-28 12:10] LABS: Band Neutrophils % 1 % (0-10); Eosinophils % (Manual) 2 % (0-7); Lymphocytes % 26 % (15-49); Monocytes % (Manual) 3 % (1-12); Platelet Estimate NORMAL (NORMAL); RBC Morphology NORMAL (NORMAL); Segmented Neutrophils % 68 % (38-78)
[2017-09-28] MEDS ORDERED: INSULIN REGULAR, HUMAN 50 UNIT in 0.9 % SODIUM CHLORIDE 99.5 ML IV STA (12:24)
[2017-09-28] MEDS ORDERED: INSULIN REGULAR, HUMAN 50 UNIT in 0.9 % SODIUM CHLORIDE 99.5 ML IV SCH ×2 (12:30→14:48)
--- NOTE | 2017-09-28 12:52 | XRay Report ---
INDICATION: Weakness. Hypertension. TECHNIQUE: AP chest x-ray,portable semiupright COMPARISON: 10/30/2016, 08/15/2016, 10/24/2014 FINDINGS:Lungs are negative. No parenchymal infiltrate or mass. Heart size and vascularity are normal. No pulmonary edema. No pulmonary congestion. No acute abnormality or interval change IMPRESSION: Negative AP portable chest x-ray Interpreted and Authenticated by: Zeus Carpenter 09/28/17
[2017-09-28 13:03] LABS: ALT/SGPT 17 U/l (0-40); Albumin 3.7 gm/dL (3.2-5.2); Albumin/Globulin Ratio 1.2 (1.0-2.3); Alkaline Phosphatase 122 U/L (39-117); Beta Hydroxybutyrate 0.27 mmol/L (< 0.27); Blood Urea Nitrogen 16 mg/dl (6-20)
[2017-09-28 13:59] LABS: Estimated Average Glucose(eAG) 410 mg/dL; Hemoglobin A1C 15.9 % HGB (4.0-6.0)
--- NOTE | 2017-09-28 14:07 | Internal Med History&Physical ---
Medical - H&P: HPI Patient information: Note initiated : 09/28/17 at 2:00 pm Patient: Jordi Nice a 57 y/o M with long history of type 2 diabetes, poor compliance, and previous admissions for hyperosmolar state; presented to ED after PCP called him with abnormal lab work. History of present illness: Mr. Nice is a 57 year old M with long medical history which is reviewed in detail with the patient - many problems are not active at present. He notes he is frequently non-compliant with his insulin, noting that about every third day or so, he will use it consistently during the day. Notes he had missed several days and then used regular sugar to presley his tea. 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 He states he went to his primary provider yesterday because he was feeling "weak" - labwork was drawn there, and he received a phone call this morning instructing him to present to the ED "right away." He specifically tells me that they told him his glucose was high and his sodium was "critically low." He notes he has had a headache, and feels "like I'm drunk, but I don't drink." He denies fevers or chills; he does report nausea, but no vomiting. He also reports diffuse abdominal pain "from his belly button to his pelvis" which has been present for years, but worsens every time his glucose "does this." He denied muscle cramps; he complains of severe headache "all over" without photophobia or phonophobia. No focal weakness noted. No urinary complaints, no cough, no recent URI. Contacts are well. All systems: reviewed and no additional remarkable complaints except as stated - Genitourinary Additional comments: States recent candidal infection under foreskin, cleared up about 2 weeks ago ( seen by PCP) - Musculoskeletal Additional comments: Complains of discomfort at the base of his neck. Notes that his partner will "share" her pain medications with him (currently meloxicam) and that when he has some, he "shares" with her. He also notes that he has been getting hydrocodone from "the neighbor" as well. 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 - Neurological Additional comments: Peripheral neuropathy. Medical - H&P: [facility] [place] Medical history: Per record, all are listed - notes made with today's patient comments to update. 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 Raynaud phenomenon (Acute) - responsible for vascular compromise left middle finger with resultant amputation. Buerger's disease (Chronic) BPH (benign prostatic hyperplasia) (Chronic) CAD (coronary artery disease) (Chronic) - two previous stents. 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 Colitis, ulcerative (Chronic) Hyperglyceridemia (Chronic) - likely due to poorly controlled diabetes. Low back pain (Chronic) Obesity (Chronic) - BMI currently 28.6 in the setting of dehydration. Raynauds syndrome (Chronic) Seizures (Chronic) - Patient states has had no medication since 2014 and no seizure activity in that time. Sexual dysfunction (Chronic) AUGUSTUS positive (Acute) Diabetes mellitus (Chronic) - poorly controlled due to intermittent use of insulin and noncompliance Diabetic renal disease (Chronic) Diabetic neuropathy (Chronic) Depressive disorder (Chronic) Tobacco dependence syndrome (Chronic) - states currently on Chantix (although was not in the medications he brought in) - states down to about 1 cigarette / day. Insomnia (Chronic) Obstructive sleep apnea of adult (Chronic) - no treatment at present. Chronic pain (Chronic 11/26/12) - currently using medications prescribed to others. 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 Pertinent family history: Father CA, mother of pancreatic CA, brother of pancreatic CA. No other history of DM. Social history: Lives with female partner, "Liz" and 2 cats; previous smoked 1 ppd for decades, states down to 1 cig / day. Denies EtOH or drug use, "ever". 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 Functional capacity: independent ambulation Smoking status: Current every day smoker Have you smoked in the last 12 months: Yes Time spent discussing smoking cessation with patient: 3 to 10 minutes Drug use: none Alcohol use: none Medical - H&P: Meds Home Medications Medication Instructions Recorded Confirmed Type Clopidogrel [Plavix] 75 mg PO ONCE 09/28/17 09/28/17 History Lisinopril [Zestril] 10 mg PO DAILY 09/28/17 09/28/17 History Mirtazapine [Remeron] 30 mg PO DAILY 09/28/17 09/28/17 History Pantoprazole Sodium [Protonix] 20 mg PO DAILY 09/28/17 09/28/17 History Pregabalin [Lyrica] 200 mg PO BID 09/28/17 09/28/17 History Rosuvastatin Calcium [Crestor] 20 mg PO DAILY 09/28/17 09/28/17 History Sertraline HCl [Zoloft] 50 mg PO DAILY 09/28/17 09/28/17 History tiZANidine HCL [Zanaflex] 8 mg PO TID 09/28/17 09/28/17 History traZODone HCL [Desyrel] 150 - 300 mg PO HS 09/28/17 09/28/17 History Allergies Allergy/AdvReac Type Severity Reaction Status Date / Time NKDA Allergy Unknown None Stated Uncoded 09/13/16 08:08 Medical - H&P: Exam - Constitutional Vitals: Temp Pulse Resp BP Pulse Ox 97.0 F 77 15 132/113 94 09/28/17 10:18 09/28/17 12:16 09/28/17 12:32 09/28/17 12:32 09/28/17 12:16 - Other Additional findings: CONSTITUTIONAL: patient was awake alert, he's oriented 3. He had good eye contact, speech was coherent and fluent and articulate; thought content was appropriate, and patient appeared to be a reliable historian. H EENT: Head - was atraumatic normocephalic hair was somewhat matted and disheveled. There was some sinking of his cheeks and around his eye sockets. No temporal wasting noted. Eyes - pupils are equally round no scleral icterus no periorbital swelling or erythema no injected vessels for range of extraocular movements. Ears - auricles are without lesions, TMs are pearly meza and translucent bilaterally, EACs with minimal soft cerumen noted on the sides. Oropharynx-he is edentulous no dentures are in place mucous membranes are tacky, palate raises symmetrically, no posterior erythema, evidence of nasopharyngeal drainage, or exudates. NECK: Supple, trachea is midline, no masses, no adenopathy, no carotid bruits, no JVD. RESPIRATORY: Good air entry to the bases bilaterally, no wheezes, crackles, or focally diminished breath sounds CARDIAC: Regular rate and rhythm I did not appreciate any murmurs rubs or gallops. No shift in the precordial impulse. MUSCULOSKELETAL: No discrete spinal tenderness, no CVA tenderness, he did endorse discomfort on palpation of his shoulders and lower neck, but no muscle spasm was noted. Missing middle finger left hand, no other amputations noted no joint swelling, erythema, or long bone deformities. ABDOMINAL: Sparse bowel sounds. Rounded in contour. Nondistended. Diffuse subjective mild tenderness on palpation. No guarding or rebound. EXTREMITIES: Radial pulses easily palpated, unable to find DP pulses with simple palpation, feet are warm without bluish or violaceous discoloration. ( Of note is currently in the process of rehydration). Significant nicotine staining noted across his fingers. No nail bed cyanosis, no edema. NEURO: Moved all extremities equally, no tremor, no focal strength deficit, collateral clerk strength equal and intact. Sensory deficit across both feet. Appropriate conversation. SKIN: No areas of epithelial disruption, swelling, or erythema. Feet and hands are unwashed however. No diabetic foot ulcers are noted. Medical - H&P: Reslt - Labs CBC & Chem 7: 09/28/17 10:45 09/28/17 11:40 Labs: Short CBC 09/28/17 Range/Units 10:45 WBC 8.7 (4.5-11.0) K/mcL Hgb 12.7 L (13.5-16.5) g/dL Hct 40.0 L (41.0-55.0) % Plt Count 268 (140-440) K/mcL BMP 09/28/17 09/28/17 10:45 11:40 Sodium TNP 129 L Potassium TNP 5.3 H Chloride TNP 91 L Carbon Dioxide TNP 25 BUN TNP 16 Creatinine TNP 1.2 Glucose TNP 703 H* Calcium TNP 8.6 Liver Function 09/28/17 09/28/17 Range/Units 10:45 11:40 Total Bilirubin TNP 0.2 AST TNP 29 ALT TNP 17 Alkaline Phosphatase TNP 122 H Albumin TNP 3.7 Urine 09/28/17 Range/Units 11:03 Urine Color Straw Urine Appearance Clear Urine pH 6.0 (5.0-9.0) Ur Specific [place] 1.031 (1.000-1.035) Urine Protein Neg (NEG) mg/dL Urine Glucose (UA) >=500 A (NEG) mg/dL - ABG Interpretation ABG results: 09/28/17 10:45 ABG Methemoglobin 0.3 L VBG pH 7.38 VBG pCO2 38.4 L VBG pO2 95 H VBG HCO3 22.4 L VBG Total CO2 23.5 L VBG O2 Saturation 91.3 H VBG Base Excess -2.4 L - Imaging and Cardiology Chest x-ray Status: image reviewed by me Additional comments: No infiltrate or effusion. Medical - H&P: A/P - Narrative A/P Narrative: #1 hyperglycemia with pseudo-hyponatremia due to noncompliance of insulin. This is not patient's first admission for this issue. Previously there been some concerns about his understanding of how to take his insulin. However at present he can tell me very clearly he is supposed to be on 20 units of NovoLog 3 times a day, and 45 units of Lantus twice a day. He is also quite clear that there are several days that he gets too busy to take any insulin at all. There is not significant evidence for underlying infection or other process that may have contributed at present. Currently he has been started on insulin drip in the ED, and has not required electrolyte replacement yet. I have also discussed with the patient the severity of this problem and risk for significant decompensation if untreated. I have also cautioned him regarding the need for frequent blood work as initial adjustments are made. #2 headache. I think this is related to his fluid shifts and likely dehydration. It will likely improve as his glucose and fluid status improves. #3 chronic pain. Patient frequently uses medications that are not prescribed to him but not all of these are opioids. We will try to limit pharmacologic treatment of pain while addressing comfort needs. We will rely on heating pads , possibly physical therapy, and positioning. 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 Somewhat concerning that he has been taking meloxicam when dehydrated with his history of diabetic nephropathy as well. #4 report of nausea. Likely related to uncontrolled diabetes, and I would suspect, that he likely has some gastroparesis at baseline. We'll use Zofran when necessary, start with a clear liquid diet and advance as nausea improves. #5 tobacco dependence. Reports he has been working on smoking cessation, I encouraged him to continue, stressing the importance to overall health. Can continue Chantix as prescribed as an outpatient, but as not with his outpatient meds will hold at present. #6 although patient denies previous history of drug use, there is evidence to the contrary in his record. I have no indication at present this being a contributing factor to present admission and actually very low suspicion of such. However if there are any unexpected changes in status or in progress of improvement a urine tox screen may be appropriate. #7 history of coronary artery disease. 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 We will continue current cardiac medications. Plan ICU admission Continue insulin drip Aggressive rehydration with normal saline q 1 hour fingersticks clear liquid diet at present q8 hour BMP, magnesium, phosphorus Continue his currently prescribed home medications. Hold meloxicam that he has been taking from his partner Continue protonix for ulcer prophylaxis. Replete electrolytes as indicated. Full code certified diabetes educator consult Heating pad / PT prn for pain issues Zofran prn engineering tech Other problems will be addressed as they arise. Medical - H&P: Qual - VTE Deep Vein Thrombosis/Pulmonary Embolism Present on Admission: No
[2017-09-28] MEDS ORDERED: ONDANSETRON 4 MG/2 ML VIAL IV PRN (14:48)
[2017-09-28] MEDS ORDERED: CLOPIDOGREL 300 MG TABLET PO SCH (14:48)
[2017-09-28] MEDS ORDERED: TIZANIDINE HCL 8 MG PO SCH (15:00)
[2017-09-28] MEDS: 0.9 % SODIUM CHLORIDE 10 ML SYRINGE IV SCH ×2 (15:10→21:43)
[2017-09-28] MEDS: tiZANidine 4 MG TABLET PO SCH ×2 (15:24→21:12)
[2017-09-28] MEDS: 0.9 % SODIUM CHLORIDE 1,000 ML IV SCH ×2 (15:32→19:23)
[2017-09-28 15:36] LABS: ABG Methemoglobin 0.3 % (0.4-1.5); VBG Base Excess -0.4 (-2.0-2.0); VBG HCO3 25.5 mmol/L (24.0-28.0); VBG Oxygen Saturation 77.4 % (40.0-70.0); VBG PCO2 47.1 mmHg (41.0-51.0); VBG PH 7.35 U (7.32-7.42); VBG PO2 47 mmHg (25-40); VBG Total CO2 26.9 mmol/L (25.0-29.0)
[2017-09-28] MEDS ORDERED: INSULIN REGULAR, HUMAN 1 UNIT/0.01 ML UNIT ONE (18:47)
[2017-09-28 19:38] LABS: ABG Methemoglobin 0.3 % (0.4-1.5); VBG HCO3 23.5 mmol/L (24.0-28.0); VBG Oxygen Saturation 83.5 % (40.0-70.0); VBG PCO2 43.3 mmHg (41.0-51.0); VBG PH 7.35 U (7.32-7.42); VBG PO2 62 mmHg (25-40); VBG Total CO2 24.9 mmol/L (25.0-29.0)
[2017-09-28] MEDS ORDERED: DEXTROSE 31 GM ORAL.SUSP PO PRN (19:57)
[2017-09-28] MEDS ORDERED: DEXTROSE 50% 50 ML VIAL IV PRN (19:57)
[2017-09-28] MEDS ORDERED: traZODone HCL 150 MG TABLET PO SCH (21:00)
[2017-09-28] MEDS ORDERED: ATORVASTATIN 20 MG TABLET PO SCH (21:00)
[2017-09-28] MEDS ORDERED: PREGABALIN 100 MG CAPSULE PO SCH (21:00)
[2017-09-28] MEDS ORDERED: INSULIN GLARGINE, HUMAN 1 UNIT/0.01 ML SQ SCH (21:00)
[2017-09-28] MEDS ORDERED: INSULIN GLARGINE, HUMAN 1 UNIT/0.01 ML SQ ONE (21:50)
[2017-09-28] MEDS ORDERED: INSULIN LISPRO 1 UNIT/0.01 ML UNIT SQ ONE (21:50)
[2017-09-28] MEDS: INSULIN LISPRO 1 UNIT/0.01 ML UNIT SQ SCH (21:51)
[2017-09-29 00:18] LABS: ABG Methemoglobin 0 % (0.4-1.5); VBG Base Excess -1.3 (-2.0-2.0); VBG HCO3 23.8 mmol/L (24.0-28.0); VBG Oxygen Saturation 93.7 % (40.0-70.0); VBG PCO2 41.4 mmHg (41.0-51.0); VBG PH 7.38 U (7.32-7.42); VBG PO2 93 mmHg (25-40); VBG Total CO2 25.1 mmol/L (25.0-29.0)
[2017-09-29] MEDS: INSULIN LISPRO 1 UNIT/0.01 ML UNIT SQ SCH (02:19)
[2017-09-29 03:25] LABS: ABG Methemoglobin 0 % (0.4-1.5); VBG Base Excess -2.2 (-2.0-2.0); VBG HCO3 22.7 mmol/L (24.0-28.0); VBG Oxygen Saturation 92.8 % (40.0-70.0); VBG PCO2 39.4 mmHg (41.0-51.0); VBG PH 7.38 U (7.32-7.42); VBG PO2 90 mmHg (25-40); VBG Total CO2 23.9 mmol/L (25.0-29.0)
[2017-09-29 04:01] LABS: Platelet Count 152 K/mcL (140-440); RBC 4.19 M/mcL (4.50-5.90)
[2017-09-29 04:05] LABS: Mean Corpuscular HGB Conc 29.9 g/dL (31.0-36.0); Mean Corpuscular Hemoglobin 23.6 pg (26.0-34.0)
[2017-09-29 04:43] LABS: Anisocytosis 1+ (NONE SEEN); Band Neutrophils % 1 % (0-10); Eosinophils % (Manual) 4 % (0-7); Lymphocytes % 43 % (15-49); Monocytes % (Manual) 2 % (1-12); Platelet Estimate NORMAL (NORMAL); RBC Morphology ABNORM (NORMAL); Segmented Neutrophils % 50 % (38-78)
--- NOTE | 2017-09-29 05:25 | Discharge Summary ---
Medical - DS: Prov Patient information: Note initiated : 09/29/17 at 5:21 am Patient: Jordi Nice a 57 y/o M admitted on 09/28/17 for hyperosmolar hyperglycemia, poorly controlled type 2 diabetes. Chief Complaint: ["I was told to come to the ED because my labs were abnormal."] Date of admission: 09/28/17 14:49 Discharge date: 09/29/17 Primary care physician: Kinjal Hairston Admitting clinician: Shelby Horan Attending physician on admission: Shelby Horan Consults: 09/28/17 12:55 Consult to Physician [CONS] Stat Comment: Consulting Provider: Shelby Horan Reason For Exam: Physician to Consult Attending physician on discharge: Shelby Horan Medical - DS: Meds - Discharge Medications Active and Home Medications: Home Medications Clopidogrel [Plavix] 75 mg PO ONCE 09/28/17 [History Confirmed 09/28/17 Last Taken Unknown] Lisinopril [Zestril] 10 mg PO DAILY 09/28/17 [History Confirmed 09/28/17 Last Taken Unknown] Mirtazapine [Remeron] 30 mg PO DAILY 09/28/17 [History Confirmed 09/28/17 Last Taken Unknown] Pantoprazole Sodium [Protonix] 20 mg PO DAILY 09/28/17 [History Confirmed Last Taken Unknown] Pregabalin [Lyrica] 200 mg PO BID 09/28/17 [History Confirmed 09/28/17 Last Taken Unknown] Rosuvastatin Calcium [Crestor] 20 mg PO DAILY 09/28/17 [History Confirmed Last Taken Unknown] Sertraline HCl [Zoloft] 50 mg PO DAILY 09/28/17 [History Confirmed 09/28/17 Last Taken Unknown] tiZANidine HCL [Zanaflex] 8 mg PO TID 09/28/17 [History Confirmed 09/28/17 Last Taken Unknown] traZODone HCL [Desyrel] 150 - 300 mg PO HS 09/28/17 [History Confirmed 09/28/17 Last Taken Unknown] Medical - DS: Hosp Hospital course: Mr. Nice is a 57 year old M with history of poorly controlled diabetes who was admitted with hyperosmolar hyperglycemia. He was started on an insulin drip , received 4 liters IV NS, and was due to have labs rechecked again at 8 AM. Approximately 8 hours after admission he had initially requested to leave, and at that time, his glucose on fingerstick was down in the high 200 range. I switched him to his Lantus and let him eat with continued sliding scale every 2 hours and he agreed to stay if we would feed him. POC glucose levels renee to the mid-high 300's, which he stated was "normal" for him. He did not require potassium or magnesium replacement while here, but magnesium had been dropping and recheck was due. He was quite insistent at 5 AM that he leave immediately, noting that he had to get home to Liz. I noted we could have case management meet with him if he stayed and they would take her needs into consideration. I discussed poor prognosis and risks of leaving with the potential electrolyte issues, and he is very clear he wants discharge immediately (he was signing AMA paperwork as I was having this discussion). Discussed desire to leave with patient. Reminded him that on admission he had express interest in help with improving his health. He states he will do so and that he will go home and take his 45 units of Lantus and 20 units of Novolog. States Liz is "worse off than he is and nobody will give her the time of day." States that "when he gets the hydros from the neighbor, he saves them up for Liz because she needs them." I reminded him he isn't supposed to be using other people's medications, and he states he can't get them otherwise and that even now, he "still hurts." I advised him to see his primary care doctor and to take only his own medications as prescribed at the time of discharge. I told him that if he got worse, to come back and I'd take care of him again. He states if he "comes back it will be in a body bag." Discharge diagnosis: Hyperosmolar hyperglycemia Secondary discharge diagnosis: Uncontrolled type 2 diabetes Poor compliance to medical regimen Pseudohyponatremia History of obtaining and using medications not his own Complications: PATIENT LEFT AGAINST MEDICAL ADVICE Time spent discussing smoking cessation with patient: 3 to 10 minutes - Time Spent with Patient Total time spent providing and/or coordinating discharge services: Less than 30 minutes Medical - DS: Exam - Constitutional Vitals: Vital Signs Temp Pulse Pulse Resp BP BP Pulse Ox 09/29/17 04:00 108/78 09/29/17 02:00 95 09/29/17 01:01 102/65 09/29/17 00:01 104/77 09/28/17 23:01 108/69 09/28/17 22:10 106/64 09/28/17 20:00 94 09/28/17 19:25 15 09/28/17 17:01 16 92/68 95 09/28/17 16:02 15 101/68 97 09/28/17 15:15 97.0 F 68 15 112/75 96 09/28/17 14:57 70 18 122/70 95 09/28/17 14:52 98 F 18 111/73 96 09/28/17 14:49 98 F 63 18 122/70 96 09/28/17 14:31 68 15 112/75 96 09/28/17 14:16 67 14 113/70 96 09/28/17 14:11 69 15 96 09/28/17 14:01 70 16 110/73 96 09/28/17 13:46 67 14 106/63 98 09/28/17 13:31 65 15 104/71 99 09/28/17 13:17 67 16 105/72 97 09/28/17 13:01 71 16 106/66 97 09/28/17 12:58 18 93/77 09/28/17 12:32 15 132/113 09/28/17 12:16 77 19 113/81 94 09/28/17 12:01 72 15 116/71 95 09/28/17 11:46 74 15 120/69 95 09/28/17 11:31 79 16 118/69 94 09/28/17 11:17 78 16 114/72 96 09/28/17 10:18 97.0 F 80 20 117/77 97 Intake and Output 09/28/17 09/28/17 09/29/17 13:59 21:59 05:59 Intake Total 1007 / 1007 2802 / 2802 Output Total 1300 / 1300 1000 / 1000 Balance 1007 / 1007 1502 / 1502 -1000 / -1000 Intake: IV 1007 / 1007 1602 / 1602 Sodium Chloride 0.9% 1,000 ml @ 1000 / 1000 1563 / 1563 250 mls/hr IV .Q4H [facility] Rx#: [id number] HumuLIN R 50 UNIT In Sodium 7 / 7 39 / 39 Chloride 0.9% 99.5 ml @ 5 UNIT/ HR 10 mls/hr IV DUR ANNIKA Rx#: [id number] Oral 1200 / 1200 Output: Urine Catheter Amount 1000 / 1000 Void Amount 1300 / 1300 Other: Meal Dinner Percent of Meal Consumed 100% Feeding Ability Independent # Voids 1 Weight 211 lb 211 lb 9.6 oz Patient Weight 09/29/17 05:59 Weight 211 lb 9.6 oz General appearance: average body habitus, disheveled, no acute distress - Neurological Exam Additional comments: Alert, good eye contact, speech consistent with edentulous state, oriented. Ambulation is smooth and steady. No tremulousness noted. Medical - DS: Data Labs on day of discharge: Labs from last 24 hours 09/29/17 09/29/17 09/29/17 03:07 03:07 00:00 WBC 6.3 RBC 4.19 L Hgb 9.9 L Hct 33.1 L POC Hct MCV 79.0 L MCH 23.6 L MCHC 29.9 L RDW 15.0 H Plt Count 152 MPV 10.2 Total Counted 100 Seg Neutrophils % 50 Band Neutrophils % 1 Lymphocytes % 43 Monocytes % (Manual) 2 Eosinophils % (Manual) 4 Platelet Estimate Normal RBC Morphology Abnorm A Anisocytosis 1+ A Microcytosis 1+ A ABG Methemoglobin 0 L VBG pH 7.38 VBG pCO2 39.4 L VBG pO2 90 H VBG HCO3 22.7 L VBG Total CO2 23.9 L VBG O2 Saturation 92.8 H VBG Base Excess -2.2 L VBG Lactic Acid Carboxyhemoglobin 3.6 H Total Hemoglobin 10.8 L O2 Delivery Level Not Reportable POC Sodium Sodium 129 L POC Potassium Potassium 4.0 POC Chloride Chloride 96 Carbon Dioxide 23 POC Total CO2 Anion Gap 10.0 POC BUN BUN Creatinine POC Creatinine GFR Calculation Glucose POC Glucose Hemoglobin A1c Estim Average Glucose Calcium POC WB Ioniz Calcium Magnesium 1.7 Total Bilirubin AST ALT Alkaline Phosphatase Total Protein Albumin Globulin Albumin/Globulin Ratio Beta-Hydroxybutyrate Urine Color Urine Appearance Urine pH Ur Specific [place] Urine Protein Urine Glucose (UA) Urine Ketones Urine Occult Blood Urine Nitrate Urine Bilirubin Urine Urobilinogen Ur Leukocyte Esterase Urine RBC Urine WBC Ur Squamous Epith Cells Urine Bacteria Urine Yeast (Budding) Ur Culture Indicated? 09/28/17 09/28/17 09/28/17 23:57 19:15 16:17 WBC RBC Hgb Hct POC Hct MCV MCH MCHC RDW Plt Count MPV Total Counted Seg Neutrophils % Band Neutrophils % Lymphocytes % Monocytes % (Manual) Eosinophils % (Manual) Platelet Estimate RBC Morphology Anisocytosis Microcytosis ABG Methemoglobin 0 L 0.3 L VBG pH 7.38 7.35 VBG pCO2 41.4 43.3 VBG pO2 93 H 62 H VBG HCO3 23.8 L 23.5 L VBG Total CO2 25.1 24.9 L VBG O2 Saturation 93.7 H 83.5 H VBG Base Excess -1.3 -2.0 VBG Lactic Acid Carboxyhemoglobin 3.3 H 3.9 H Total Hemoglobin 10.2 L 10.8 L O2 Delivery Level Not Reportable Not Reportable POC Sodium Sodium 130 L POC Potassium Potassium 4.5 POC Chloride Chloride 94 L Carbon Dioxide 23 POC Total CO2 Anion Gap 13.0 POC BUN BUN Creatinine POC Creatinine GFR Calculation Glucose POC Glucose Hemoglobin A1c Estim Average Glucose Calcium POC WB Ioniz Calcium Magnesium 1.9 Total Bilirubin AST ALT Alkaline Phosphatase Total Protein Albumin Globulin Albumin/Globulin Ratio Beta-Hydroxybutyrate Urine Color Urine Appearance Urine pH Ur Specific [place] Urine Protein Urine Glucose (UA) Urine Ketones Urine Occult Blood Urine Nitrate Urine Bilirubin Urine Urobilinogen Ur Leukocyte Esterase Urine RBC Urine WBC Ur Squamous Epith Cells Urine Bacteria Urine Yeast (Budding) Ur Culture Indicated? 09/28/17 09/28/17 09/28/17 15:00 11:40 11:03 WBC RBC Hgb Hct POC Hct MCV MCH MCHC RDW Plt Count MPV Total Counted Seg Neutrophils % Band Neutrophils % Lymphocytes % Monocytes % (Manual) Eosinophils % (Manual) Platelet Estimate RBC Morphology Anisocytosis Microcytosis ABG Methemoglobin 0.3 L VBG pH 7.35 VBG pCO2 47.1 VBG pO2 47 H VBG HCO3 25.5 VBG Total CO2 26.9 VBG O2 Saturation 77.4 H VBG Base Excess -0.4 VBG Lactic Acid Carboxyhemoglobin 5.7 H Total Hemoglobin 11.7 L O2 Delivery Level Not Reportable POC Sodium Sodium 129 L POC Potassium Potassium 5.3 H POC Chloride Chloride 91 L Carbon Dioxide 25 POC Total CO2 Anion Gap 13.0 POC BUN BUN 16 Creatinine 1.2 POC Creatinine GFR Calculation 67 Glucose 703 H* POC Glucose Hemoglobin A1c Estim Average Glucose Calcium 8.6 POC WB Ioniz Calcium Magnesium Total Bilirubin 0.2 AST 29 ALT 17 Alkaline Phosphatase 122 H Total Protein 6.8 Albumin 3.7 Globulin 3.1 Albumin/Globulin Ratio 1.2 Beta-Hydroxybutyrate 0.27 Urine Color Straw Urine Appearance Clear Urine pH 6.0 Ur Specific [place] 1.031 Urine Protein Neg Urine Glucose (UA) >=500 A Urine Ketones Neg Urine Occult Blood Neg Urine Nitrate Neg Urine Bilirubin Neg Urine Urobilinogen Neg Ur Leukocyte Esterase 25 A Urine RBC 14 H Urine WBC 3 Ur Squamous Epith Cells 1 Urine Bacteria 0 Urine Yeast (Budding) Few A Ur Culture Indicated? Yes 09/28/17 09/28/17 09/28/17 10:46 10:45 10:45 WBC RBC Hgb Hct POC Hct MCV MCH MCHC RDW Plt Count MPV Total Counted Seg Neutrophils % Band Neutrophils % Lymphocytes % Monocytes % (Manual) Eosinophils % (Manual) Platelet Estimate RBC Morphology Anisocytosis Microcytosis ABG Methemoglobin VBG pH VBG pCO2 VBG pO2 VBG HCO3 VBG Total CO2 VBG O2 Saturation VBG Base Excess VBG Lactic Acid 3.0 H Carboxyhemoglobin Total Hemoglobin O2 Delivery Level POC Sodium Sodium POC Potassium Potassium POC Chloride Chloride Carbon Dioxide POC Total CO2 Anion Gap POC BUN BUN Creatinine POC Creatinine GFR Calculation Glucose POC Glucose Hemoglobin A1c 15.9 H Estim Average Glucose 410 Calcium POC WB Ioniz Calcium Magnesium Total Bilirubin AST ALT Alkaline Phosphatase Total Protein Albumin Globulin Albumin/Globulin Ratio Beta-Hydroxybutyrate TNP Urine Color Urine Appearance Urine pH Ur Specific [place] Urine Protein Urine Glucose (UA) Urine Ketones Urine Occult Blood Urine Nitrate Urine Bilirubin Urine Urobilinogen Ur Leukocyte Esterase Urine RBC Urine WBC Ur Squamous Epith Cells Urine Bacteria Urine Yeast (Budding) Ur Culture Indicated? 09/28/17 09/28/17 09/28/17 10:45 10:45 10:45 WBC 8.7 RBC 4.96 Hgb 12.7 L Hct 40.0 L POC Hct 41.0 MCV 80.6 MCH 25.6 L MCHC 31.8 RDW 14.6 H Plt Count 268 MPV 13.8 H Total Counted 100 Seg Neutrophils % 68 Band Neutrophils % 1 Lymphocytes % 26 Monocytes % (Manual) 3 Eosinophils % (Manual) 2 Platelet Estimate Normal RBC Morphology Normal Anisocytosis Microcytosis ABG Methemoglobin 0.3 L VBG pH 7.38 VBG pCO2 38.4 L VBG pO2 95 H VBG HCO3 22.4 L VBG Total CO2 23.5 L VBG O2 Saturation 91.3 H VBG Base Excess -2.4 L VBG Lactic Acid Carboxyhemoglobin 5.7 H Total Hemoglobin 12.9 L O2 Delivery Level Not Reportable POC Sodium 125 L Sodium TNP POC Potassium 5.3 H Potassium TNP POC Chloride 93 L Chloride TNP Carbon Dioxide TNP POC Total CO2 28 Anion Gap TNP POC BUN 26 H BUN TNP Creatinine TNP POC Creatinine 1.0 GFR Calculation TNP Glucose TNP POC Glucose > 700 H* Hemoglobin A1c Estim Average Glucose Calcium TNP POC WB Ioniz Calcium 1.10 L Magnesium Total Bilirubin TNP AST TNP ALT TNP Alkaline Phosphatase TNP Total Protein TNP Albumin TNP Globulin TNP Albumin/Globulin Ratio TNP Beta-Hydroxybutyrate Urine Color Urine Appearance Urine pH Ur Specific [place] Urine Protein Urine Glucose (UA) Urine Ketones Urine Occult Blood Urine Nitrate Urine Bilirubin Urine Urobilinogen Ur Leukocyte Esterase Urine RBC Urine WBC Ur Squamous Epith Cells Urine Bacteria Urine Yeast (Budding) Ur Culture Indicated? Medical - DS: A/P - Patient/Caregiver Discharge Instructions Diet: Consistent Carbohydrate Additional Instructions: If symptoms return, come back to ED. Continue with Lantus and Novolog Adequate hydration. Do not take medications not prescribed for you and do not share your medications with others. - Follow up Plan Follow up with: Knijal Hairston DO [Primary Care Provider] - Disposition: Left Against Medical Advice Prognosis: Fair Rehab Potential: Undetermined Overall status at discharge: other (He might be close to baseline, highly concerning he will be back very quickly. Difficult to say.) Medical - DS: Qual - VTE Deep Vein Thrombosis/Pulmonary Embolism Present on Admission: No
[2017-09-29] MEDS ORDERED: PANTOPRAZOLE 40 MG TABLET PO SCH (07:30)
[2017-09-29] MEDS ORDERED: SERTRALINE 50 MG TABLET PO SCH (09:00)
[2017-09-29] MEDS ORDERED: CLOPIDOGREL 75 MG TABLET PO SCH (09:00)
[2017-09-29] MEDS ORDERED: MIRTAZAPINE 15 MG TABLET PO SCH (09:00)
[2017-09-29] MEDS ORDERED: LISINOPRIL 10 MG TABLET PO SCH (09:00)
== END 2017-09-29 05:00 | disposition left against medical advice (07) | DRG 638 ==
LOC: ED 10:17 → MEDSUR 14:49 → ICU 15:10
PROVIDERS: ADMIT Family Medicine; ATTEND Family Medicine

== ENCOUNTER 2017-11-04 20:08 | Inpatient (IN) ==
[2017-11-04] MEDS ORDERED: methylPREDNISolone SOD SUCC 125 MG/2 ML VIAL ONE (20:18)
[2017-11-04] MEDS ORDERED: IPRATROPIUM/ALBUTEROL 3 ML AMPUL.NEB NEB ONE ×2 (20:19→21:34)
[2017-11-04] MEDS ORDERED: NALOXONE HCL 0.4 MG/ML VIAL ONE (20:30)
[2017-11-04] MEDS ORDERED: NALOXONE HCL 0.4 MG/ML VIAL IV PRN (20:39)
--- NOTE | 2017-11-04 20:42 | XRay Report ---
INDICATION: Hypoxia TECHNIQUE: AP chest x-ray, portable semiupright COMPARISON: Previous examinations dated 10/07/2017, 09/28/2017, 10/30/2016 FINDINGS: No pulmonary parenchymal infiltrate or mass. No focal pulmonary parenchymal abnormality. Heart size and vascularity are normal. No pulmonary edema. No pulmonary congestion. No hilar or mediastinal abnormality. No pleural fluid IMPRESSION: Negative AP chest x-ray Interpreted and Authenticated by: Zeus Carpenter 11/04/17
[2017-11-04] MEDS ORDERED: PROPOFOL 200 MG/20 ML VIAL IV ONE (20:50)
[2017-11-04] MEDS ORDERED: KETAMINE 100 MG/ML ML IV ONE (20:50)
[2017-11-04] MEDS ORDERED: SUCCINYLCHOLINE 20 MG/ML ML IV ONE (20:50)
[2017-11-04] MEDS ORDERED: MIDAZOLAM 5 MG/5 ML VIAL IV ONE (20:50)
--- NOTE | 2017-11-04 21:11 | Emergency Department Note ---
SOB HPI - General Chief Complaint: Shortness of Breath/Dyspnea Stated Complaint: fall found down with low o2 sats Time Seen by Provider: 11/04/17 20:28 Mode of arrival: EMS - History of Present Illness Patient having severe shortness of breath over the past 2 hours. 911 was called the sats running in the low 70s they given him albuterol treatment patient still evident respiratory distress with wheezing bilaterally and sats in the 70s and 80s. Patient denies chest pain. He was seen at [facility] 3 weeks ago and he states he was diagnosed with pancreatic cancer. Initially stated he wanted CPR but DO NOT INTUBATE. Patient was put on BiPAP and given albuterol DuoNeb as well as Solu-Medrol 125 mg IV. Blood pressures remained in the 70s was given IV fluids he states he has had some vomiting 3 times this afternoon. Had taken to hydrocodone tens at approximately 11:00 in the morning he states he uses no recreational drugs, we have given him Narcan with no effect. Patient later decided he did not want to be intubated and a decision was made with anesthesia to intubate the patient as he continued to have respiratory distress. - Related Data Home Medications Medication Instructions Recorded Confirmed Clopidogrel [Plavix] 75 mg PO ONCE 09/28/17 10/07/17 Lisinopril [Zestril] 10 mg PO DAILY 09/28/17 10/07/17 Mirtazapine [Remeron] 30 mg PO DAILY 09/28/17 10/07/17 Pantoprazole Sodium [Protonix] 20 mg PO DAILY 09/28/17 10/07/17 Pregabalin [Lyrica] 200 mg PO BID 09/28/17 10/07/17 Rosuvastatin Calcium [Crestor] 20 mg PO DAILY 09/28/17 10/07/17 Sertraline HCl [Zoloft] 50 mg PO DAILY 09/28/17 10/07/17 tiZANidine HCL [Zanaflex] 8 mg PO TID 09/28/17 10/07/17 traZODone HCL [Desyrel] 150 - 300 mg PO HS 09/28/17 10/07/17 Allergies Allergy/AdvReac Type Severity Reaction Status Date / Time No Known Drug Allergies Allergy Verified 10/07/17 21:10 Review of Systems All systems ED: reviewed and negative except as stated. Constitutional: Denies: fever, chills Eyes: Denies: eye pain ENT ED: Denies: ear pain Cardiovascular: Denies: chest pain, palpitations Respiratory: Denies: shortness of breath, cough Gastrointestinal: Reports: abdominal pain, nausea, vomiting. Denies: diarrhea, constipation Genitourinary: Denies: dysuria, frequency, urgency Musculoskeletal: Denies: back pain Integumentary: Denies: rash, lesions Neurological: Denies: headache, weakness Psychiatric: Denies: anxiety Endocrine: Reports: fatigue Hematological/Lymphatic: Denies: easy bleeding Allergic/Immunologic: Denies: facial swelling Past Medical History - Past Medical History Medical history: Reports: arthritis, cancer (Pancreatic), COPD, coronary artery disease, DM (Type II, insulin using), GERD, hyperlipidemia, hypertension, kidney stones, liver disease, myocardial infarction, renal disease, seizures, other (Obstructive sleep apnea. BPH. Heat stroke which led to a seizure. Erectile dysfunction. Peripheral neuropathy likely due to diabetes.). Denies: CVA, TIA Psychiatric history: Reports: anxiety, depression Surgical history ED: Reports: angioplasty/stent, cholecystectomy, orthopedic, other (Left elbow fracture repair. Left knee arthroscopic debridement. Left ankle fracture repair.) Family history: Reports: cancer (Both mother and father from pancreatic cancer, sister from pancreatic cancer, states her brother has pancreatic cancer) - Social History smoking status: Current every day smoker Alcohol use: Reports: Rarely (Today, October 07, 2017, denies alcohol intake.) Drug use: Reports: none. Denies: marijuana Physical Exam General appearance: anxious Eye: Absent: normal appearance ENT: normal exam Neck: Present: normal inspection Chest: Present: normal inspection Respiratory: Present: normal lung sounds bilaterally, respiratory distress, wheezes, stridor, prolonged expiratory phase Cardiovascular: Present: regular rate, normal heart sounds. Absent: normal rhythm, bradycardia, tachycardia, irregular rhythm Abdominal: Present: soft, tenderness, normal bowel sounds. Absent: distention, guarding, rebound, rigidity Abdominal tenderness: Present: diffuse Extremities: Present: normal inspection, full ROM Back: Present: normal inspection, full ROM. Absent: tenderness Neurological: Present: alert, oriented X3, CN II-XII intact Psychiatric: Present: normal affect, normal mood Skin: Present: warm, dry, intact Course Vital Signs Pulse Rate 70 07/02/18 20:10 Respiratory Rate 26 H 11/04/17 20:10 Blood Pressure 80/55 11/04/17 20:10 Pulse Oximetry (%) 82 L 11/04/17 20:10 Temperature 97.4 F 11/04/17 23:00 Pulse Rate 95 H 11/04/17 22:31 Respiratory Rate 18 11/04/17 23:06 Blood Pressure 110/71 11/04/17 23:00 Pulse Oximetry (%) 100 11/04/17 23:06 Shortness of Breath/Dyspnea - MDM Narrative Medical decision making narrative: Patient arrived in respiratory distress with sats running in the 70s and 80s. And rapid breathing. Has a history of severe COPD initially he stated he did not want to be intubated and we did use BiPAP however he changed his mind and decided that he would like to be intubated if necessary. Anesthesia here to evaluate felt prudent to intubate and put him on a respirator. His blood pressures finally came up from 70s systolically to 100 systolically. After 2 L of fluid. Chest x-ray showed no CHF. Initially told us he had pancreatic cancer however on review of the ED report from [facility] 1 month ago it appears that it was more pancreatitis. On the [id number] 3 that his bicarb was 18. His potassium was 3.5. Anesthesia had given him Versed and he was intubated and RT is here for the respirator adjustments. His initial hematocrit is 37 BUN of 38 creatinine 2.1 glucose is 261. - Lab Data Result diagrams: 11/04/17 20:37 11/04/17 20:38 Lab Results 11/04/17 11/04/17 11/04/17 Range/Units 20:37 20:37 20:37 WBC 12.1 H (4.5-11.0) K/mcL RBC 4.90 (4.50-5.90) M/mcL Hgb 13.0 L (13.5-16.5) g/dL Hct 38.4 L (41.0-55.0) % POC Hct (41.0-55.0) % MCV 78.4 L (80.0-100.0) fL MCH 26.5 (26.0-34.0) pg MCHC 33.8 (31.0-36.0) g/dL RDW 15.6 H (11.5-14.5) % Plt Count 257 (140-440) K/mcL MPV 10.2 (7.4-10.4) fL Gran % 65.6 (38.0-78.0) % Lymph % (Auto) 27.8 (15.5-49.0) % [place] % (Auto) 4.9 (1.0-12.0) % Eos % (Auto) 1.4 (0.0-7.0) % Baso % (Auto) 0.3 (0.0-2.0) % Gran # 7.9 (1.8-8.0) K/mcL Lymph # (Auto) 3.4 (1.5-4.8) K/mcL [place] # (Auto) 0.6 (0.1-0.9) K/mcL Eos # (Auto) 0.2 (0.0-0.7) K/mcL Baso # (Auto) 0 (0.0-0.3) K/mcL D-Dimer POC Sodium (133-145) mmol/L Sodium (133-145) mmol/L POC Potassium (3.3-5.1) mmol/L Potassium (3.3-5.1) mmol/L POC Chloride (96-108) mmol/L Chloride (96-108) mmol/L Carbon Dioxide (22-30) mmol/L POC Total CO2 (22-30) mmol/L Anion Gap (8-16) POC BUN (6-20) mg/dl BUN (6-20) mg/dl Creatinine (0.7-1.2) mg/dl POC Creatinine (0.7-1.2) mg/dl GFR Calculation Glucose (70-105) mg/dL POC Glucose (70-105) mg/dL Calcium (8.6-10.4) mg/dl POC WB Ioniz Calcium (1.16-1.32) mmol/L Total Bilirubin (0.0-1.0) mg/dL AST (0-37) U/l ALT (0-40) U/l Alkaline Phosphatase (39-117) U/L Total Creatine Kinase 232 H (24-195) IU/L CK-MB (CK-2) (0-4.9) ng/ml Myoglobin (28-72) ng/ml Troponin T < 0.01 (0-0.03) ng/ml Total Protein (5.9-8.4) gm/dL Albumin (3.2-5.2) gm/dL Globulin (2.2-3.7) gm/dL Albumin/Globulin Ratio (1.0-2.3) Lipase (7-60) U/L Urine Color Urine Appearance Urine pH (5.0-9.0) Ur Specific [place] (1.000-1.035) Urine Protein (NEG) mg/dL Urine Glucose (UA) (NEG) mg/dL Urine Ketones (NEG) mg/dL Urine Occult Blood (<0.03) mg/dL Urine Nitrate (NEG) Urine Bilirubin (NEG) mg/dL Urine Urobilinogen (NEG) mg/dL Ur Leukocyte Esterase (NEG) /uL Urine RBC (0-1) /hpf Urine WBC (0-4) /hpf Ur Squamous Epith Cells (0-4) /hpf Ur Transition Epith Cell (0-2) /hpf Amorphous Crystals (0) /hpf Urine Bacteria (0) /hpf Hyaline Casts (0-2) /lpf Urine Mucus (0) /hpf Ur Culture Indicated? Urine Opiates Screen (NONDETECTED) Ur Oxycodone Screen (NONDETECTED) Urine Methadone Screen (NONDETECTED) Ur Barbiturates Screen (NONDETECTED) Ur Phencyclidine Scrn (NONDETECTED) Ur Amphetamines Screen (NONDETECTED) U Benzodiazepines Scrn (NONDETECTED) Urine Cocaine Screen (NONDETECTED) U Marijuana (THC) Screen (NONDETECTED) 11/04/17 11/04/17 11/04/17 Range/Units 20:38 20:38 20:38 WBC (4.5-11.0) K/mcL RBC (4.50-5.90) M/mcL Hgb (13.5-16.5) g/dL Hct (41.0-55.0) % POC Hct 37.0 L (41.0-55.0) % MCV (80.0-100.0) fL MCH (26.0-34.0) pg MCHC (31.0-36.0) g/dL RDW (11.5-14.5) % Plt Count (140-440) K/mcL MPV (7.4-10.4) fL Gran % (38.0-78.0) % Lymph % (Auto) (15.5-49.0) % [place] % (Auto) (1.0-12.0) % Eos % (Auto) (0.0-7.0) % Baso % (Auto) (0.0-2.0) % Gran # (1.8-8.0) K/mcL Lymph # (Auto) (1.5-4.8) K/mcL [place] # (Auto) (0.1-0.9) K/mcL Eos # (Auto) (0.0-0.7) K/mcL Baso # (Auto) (0.0-0.3) K/mcL D-Dimer TNP POC Sodium 137 (133-145) mmol/L Sodium 137 (133-145) mmol/L POC Potassium 3.5 (3.3-5.1) mmol/L Potassium 3.5 (3.3-5.1) mmol/L POC Chloride 100 (96-108) mmol/L Chloride 97 (96-108) mmol/L Carbon Dioxide 22 (22-30) mmol/L POC Total CO2 24 (22-30) mmol/L Anion Gap 18.0 H (8-16) POC BUN 38 H (6-20) mg/dl BUN 39 H (6-20) mg/dl Creatinine 2.0 H (0.7-1.2) mg/dl POC Creatinine 2.1 H (0.7-1.2) mg/dl GFR Calculation 36 Glucose 259 H (70-105) mg/dL POC Glucose 261 H (70-105) mg/dL Calcium 10.6 H (8.6-10.4) mg/dl POC WB Ioniz Calcium 1.20 (1.16-1.32) mmol/L Total Bilirubin 0.5 (0.0-1.0) mg/dL AST 29 (0-37) U/l ALT 26 (0-40) U/l Alkaline Phosphatase 112 (39-117) U/L Total Creatine Kinase 233 H (24-195) IU/L CK-MB (CK-2) 6.1 H (0-4.9) ng/ml Myoglobin 263 H (28-72) ng/ml Troponin T (0-0.03) ng/ml Total Protein 7.4 (5.9-8.4) gm/dL Albumin 4.5 (3.2-5.2) gm/dL Globulin 2.9 (2.2-3.7) gm/dL Albumin/Globulin Ratio 1.6 (1.0-2.3) Lipase 55 (7-60) U/L Urine Color Urine Appearance Urine pH (5.0-9.0) Ur Specific [place] (1.000-1.035) Urine Protein (NEG) mg/dL Urine Glucose (UA) (NEG) mg/dL Urine Ketones (NEG) mg/dL Urine Occult Blood (<0.03) mg/dL Urine Nitrate (NEG) Urine Bilirubin (NEG) mg/dL Urine Urobilinogen (NEG) mg/dL Ur Leukocyte Esterase (NEG) /uL Urine RBC (0-1) /hpf Urine WBC (0-4) /hpf Ur Squamous Epith Cells (0-4) /hpf Ur Transition Epith Cell (0-2) /hpf Amorphous Crystals (0) /hpf Urine Bacteria (0) /hpf Hyaline Casts (0-2) /lpf Urine Mucus (0) /hpf Ur Culture Indicated? Urine Opiates Screen (NONDETECTED) Ur Oxycodone Screen (NONDETECTED) Urine Methadone Screen (NONDETECTED) Ur Barbiturates Screen (NONDETECTED) Ur Phencyclidine Scrn (NONDETECTED) Ur Amphetamines Screen (NONDETECTED) U Benzodiazepines Scrn (NONDETECTED) Urine Cocaine Screen (NONDETECTED) U Marijuana (THC) Screen (NONDETECTED) 11/04/17 11/04/17 Range/Units 21:45 21:45 WBC (4.5-11.0) K/mcL RBC (4.50-5.90) M/mcL Hgb (13.5-16.5) g/dL Hct (41.0-55.0) % POC Hct (41.0-55.0) % MCV (80.0-100.0) fL MCH (26.0-34.0) pg MCHC (31.0-36.0) g/dL RDW (11.5-14.5) % Plt Count (140-440) K/mcL MPV (7.4-10.4) fL Gran % (38.0-78.0) % Lymph % (Auto) (15.5-49.0) % [place] % (Auto) (1.0-12.0) % Eos % (Auto) (0.0-7.0) % Baso % (Auto) (0.0-2.0) % Gran # (1.8-8.0) K/mcL Lymph # (Auto) (1.5-4.8) K/mcL [place] # (Auto) (0.1-0.9) K/mcL Eos # (Auto) (0.0-0.7) K/mcL Baso # (Auto) (0.0-0.3) K/mcL D-Dimer POC Sodium (133-145) mmol/L Sodium (133-145) mmol/L POC Potassium (3.3-5.1) mmol/L Potassium (3.3-5.1) mmol/L POC Chloride (96-108) mmol/L Chloride (96-108) mmol/L Carbon Dioxide (22-30) mmol/L POC Total CO2 (22-30) mmol/L Anion Gap (8-16) POC BUN (6-20) mg/dl BUN (6-20) mg/dl Creatinine (0.7-1.2) mg/dl POC Creatinine (0.7-1.2) mg/dl GFR Calculation Glucose (70-105) mg/dL POC Glucose (70-105) mg/dL Calcium (8.6-10.4) mg/dl POC WB Ioniz Calcium (1.16-1.32) mmol/L Total Bilirubin (0.0-1.0) mg/dL AST (0-37) U/l ALT (0-40) U/l Alkaline Phosphatase (39-117) U/L Total Creatine Kinase (24-195) IU/L CK-MB (CK-2) (0-4.9) ng/ml Myoglobin (28-72) ng/ml Troponin T (0-0.03) ng/ml Total Protein (5.9-8.4) gm/dL Albumin (3.2-5.2) gm/dL Globulin (2.2-3.7) gm/dL Albumin/Globulin Ratio (1.0-2.3) Lipase (7-60) U/L Urine Color Yellow Urine Appearance Hazy Urine pH 5.0 (5.0-9.0) Ur Specific [place] 1.019 (1.000-1.035) Urine Protein 30 A (NEG) mg/dL Urine Glucose (UA) Negative (NEG) mg/dL Urine Ketones Neg (NEG) mg/dL Urine Occult Blood Neg (<0.03) mg/dL Urine Nitrate Neg (NEG) Urine Bilirubin Neg (NEG) mg/dL Urine Urobilinogen 4.0 A (NEG) mg/dL Ur Leukocyte Esterase Neg (NEG) /uL Urine RBC 5 H (0-1) /hpf Urine WBC 4 (0-4) /hpf Ur Squamous Epith Cells 1 (0-4) /hpf Ur Transition Epith Cell < 1 (0-2) /hpf Amorphous Crystals Few A (0) /hpf Urine Bacteria 0 (0) /hpf Hyaline Casts 79 H (0-2) /lpf Urine Mucus Many A (0) /hpf Ur Culture Indicated? No Urine Opiates Screen Suspect positive A (NONDETECTED) Ur Oxycodone Screen None detected (NONDETECTED) Urine Methadone Screen None detected (NONDETECTED) Ur Barbiturates Screen None detected (NONDETECTED) Ur Phencyclidine Scrn None detected (NONDETECTED) Ur Amphetamines Screen Suspect positive A (NONDETECTED) U Benzodiazepines Scrn Suspect positive A (NONDETECTED) Urine Cocaine Screen None detected (NONDETECTED) U Marijuana (THC) Screen None detected (NONDETECTED) Disposition Pt seen by CONSULTANT RN/PA only: No Clinical Impression: Respiratory failure Qualifiers: Chronicity: acute Respiratory failure complication: hypoxia Qualified Code(s): J96.01 - Acute respiratory failure with hypoxia Disposition: Xfer As Inpt ([facility]) Condition: Undetermined
[2017-11-04 21:12] LABS: Basophils # (Auto) 0 K/mcL (0.0-0.3); Basophils % (Auto) 0.3 % (0.0-2.0); Eosinophils # (Auto) 0.2 K/mcL (0.0-0.7); Eosinophils % (Auto) 1.4 % (0.0-7.0); Granulocytes % (Auto) 65.6 % (38.0-78.0); Lymphocytes # (Auto) 3.4 K/mcL (1.5-4.8); Lymphocytes % (Auto) 27.8 % (15.5-49.0); Mean Cell Volume 78.4 fL (80.0-100.0); Mean Corpuscular HGB Conc 33.8 g/dL (31.0-36.0); Mean Corpuscular Hemoglobin 26.5 pg (26.0-34.0); Monocytes # (Auto) 0.6 K/mcL (0.1-0.9); Monocytes % (Auto) 4.9 % (1.0-12.0); Platelet Count 257 K/mcL (140-440); Red Cell Distribution Width 15.6 % (11.5-14.5)
--- NOTE | 2017-11-04 21:15 | Procedure Note ---
Procedures - Intubation Sedative: Versed Paralytic: Succinylcholine ETT: ETCO2, BBS Assist device used: glide Vocal Cord View: 1 ET tube size: 8 ET tube uncuffed: Yes (23) Tube secured location: lips Tube placement confirmation: visualized tube passing through cords, equal breath sounds bilaterally, no breath sounds over epigastrium Patient tolerated procedure: well Intubation complications: none
[2017-11-04] MEDS ORDERED: MIDAZOLAM 2 MG/2 ML VIAL ONE ×2 (21:29→22:07)
[2017-11-04] MEDS ORDERED: methylPREDNISolone SOD SUCC 125 MG/2 ML VIAL IV ONE (21:34)
[2017-11-04 21:35] LABS: Creatine Kinase 232 IU/L (24-195)
[2017-11-04 21:36] LABS: ALT/SGPT 26 U/l (0-40); Albumin 4.5 gm/dL (3.2-5.2); Albumin/Globulin Ratio 1.6 (1.0-2.3); Alkaline Phosphatase 112 U/L (39-117); Blood Urea Nitrogen 39 mg/dl (6-20); Creatine Kinase 233 IU/L (24-195); Creatine Kinase MB 6.1 ng/ml (0-4.9); Myoglobin 263 ng/ml (28-72)
[2017-11-04] MEDS ORDERED: PROPOFOL 1,000 MG in PREMIX 1 BAG IV SCH (21:45)
[2017-11-04] MEDS ORDERED: 0.9 % SODIUM CHLORIDE 1,000 ML IV ONE ×2 (22:15→22:16)
[2017-11-04] MEDS ORDERED: LACTATED RINGERS 1,000 ML IV ONE ×2 (22:15→22:16)
--- NOTE | 2017-11-04 22:34 | Internal Med History&Physical ---
Medical - H&P: [facility] Patient information: Note initiated : 11/04/17 at 10:30 pm Service Date, if different from initiated Date: [] Patient: Jordi Nice a 57 y/o M admitted on for fall found down with low o2 sats. Chief Complaint: [] History of present illness: Mr. Nice is a 57 year old M with h/o Dm, copd, cad, presented to the ER after being acutely short of breath, patient on my eval was intubated and sedated, history from chart review. No family by the bed side. The pt was brought in by EMS for acute sob, hypoxia and hypotension, oxygen sats were in 60's on presentation on 15L NRB, the patient was placed on bipap, and it seems patient was wheezing on exam he was placed on bipap, duonebs and narcan given without much response, patient was able to communicate his wishes to the ER provider initialy he declined intubation, but later agreed for same. Given he had not improved with bipap, and was still in respiratory distress, he was intubated by Anesthesia. patient was recently in ER [facility] with pancreatitis, He as admitted to this hospital in september it seems with hyperglycemia and had signed out AMA. elvin haywood pending. Pt will be admitted to the hospital for further management ABG on Fio1 40 , peep 5, rr 14, tv 500 PH 7.28 PCO2 50, Po2 112, lactic acid 0.6 ROS unobtainable: due to endotracheal tube, due to mental status Medical - H&P: PMH Medical history: Medical History Fibromyalgia (Chronic) Diabetic cheirarthropathy (Chronic) Encounter for long-term (current) use of high-risk medication (Chronic) Raynaud phenomenon (Acute) Connective tissue disease (Suspected) Buerger's disease (Chronic) BPH (benign prostatic hyperplasia) (Chronic) CAD (coronary artery disease) (Chronic) Colitis, ulcerative (Chronic) Diastasis of muscle (Chronic) Hyperglyceridemia (Chronic) Low back pain (Chronic) Obesity (Chronic) Raynauds syndrome (Chronic) Seizures (Chronic) Sexual dysfunction (Chronic) AUGUSTUS positive (Acute) Diabetes mellitus (Chronic) Diabetic renal disease (Chronic) Diabetic neuropathy (Chronic) Depressive disorder (Chronic) Tobacco dependence syndrome (Chronic) Insomnia (Chronic) Obstructive sleep apnea of adult (Chronic) Chronic pain (Chronic 11/26/12) Epilepsy (Chronic 11/26/12) Glaucoma (Chronic) Hypertensive retinopathy (Chronic) Cataract (Chronic) Essential hypertension (Chronic) Chronic obstructive lung disease (Chronic) Coronary atherosclerosis (Chronic) GERD (gastroesophageal reflux disease) (Chronic) Multiple joint pain (Chronic) Lumbar radiculopathy (Chronic) Chronic back pain (Chronic) Degenerative, intervertebral disc (Chronic) Hypoxia (Chronic) 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) Surgical history: Past Surgical History History of bilateral cataract extraction (Chronic) History of cholecystectomy (Chronic) History of elbow surgery (Chronic) History of foot surgery (Chronic) History of left knee surgery (Chronic) Pertinent family history: Family History Mother Malignant tumor of pancreas Father Myocardial infarction Medical - H&P: Meds Home Medications Medication Instructions Recorded Confirmed Type Clopidogrel [Plavix] 75 mg PO ONCE 09/28/17 10/07/17 History Lisinopril [Zestril] 10 mg PO DAILY 09/28/17 10/07/17 History Mirtazapine [Remeron] 30 mg PO DAILY 09/28/17 10/07/17 History Pantoprazole Sodium [Protonix] 20 mg PO DAILY 09/28/17 10/07/17 History Pregabalin [Lyrica] 200 mg PO BID 09/28/17 10/07/17 History Rosuvastatin Calcium [Crestor] 20 mg PO DAILY 09/28/17 10/07/17 History Sertraline HCl [Zoloft] 50 mg PO DAILY 09/28/17 10/07/17 History tiZANidine HCL [Zanaflex] 8 mg PO TID 09/28/17 10/07/17 History traZODone HCL [Desyrel] 150 - 300 mg PO HS 09/28/17 10/07/17 History Allergies Allergy/AdvReac Type Severity Reaction Status Date / Time No Known Drug Allergies Allergy Verified 10/07/17 21:10 Medical - H&P: Exam - Constitutional Vitals: Temp Pulse Resp BP Pulse Ox 95.9 F L 102 H 8 L 116/67 97 11/04/17 20:43 11/04/17 22:01 11/04/17 22:01 11/04/17 22:01 11/04/17 22:01 Exam: GENERAL: The patient is a well-developed, well-nourished sedated on vent, not responding to any stimulus, sedated heavily VITAL SIGNS: Reviewed and as noted elsewhere. HEENT: Head is normocephalic and atraumatic. Extraocular muscles are intact. Pupils are equal, round, and reactive to light. Nares appeared normal. Mouth appears any without lesions. Mucous membranes are dry, NECK: Normal to inspection, Supple, No lymphadenopathy or thyromegaly. LUNGS: Air entry equal on both sides, no wheezing, crackles or rhonchi noted. No accessory muscles of respiration HEART: Regular rate and rhythm normal, S1 and S2 heard, no Gallop, S3 or Rub Noted, No Gross murmur heard. ABDOMEN: Soft, nontender, and nondistended. Positive bowel sounds. No hepatosplenomegaly was noted. EXTREMITIES: No cyanosis, clubbing, rash, lesions or edema. NEUROLOGIC: sedated mech vent, unable. PSYCHIATRIC unable SKIN: No ulceration or wounds noted, No jaundice, No rash noted. Medical - H&P: Reslt - Labs CBC & Chem 7: 11/04/17 20:37 11/04/17 20:38 Labs: Short CBC 11/04/17 Range/Units 20:37 WBC 12.1 H (4.5-11.0) K/mcL Hgb 13.0 L (13.5-16.5) g/dL Hct 38.4 L (41.0-55.0) % Plt Count 257 (140-440) K/mcL BMP 11/04/17 20:38 Sodium 137 Potassium 3.5 Chloride 97 Carbon Dioxide 22 BUN 39 H Creatinine 2.0 H Glucose 259 H Calcium 10.6 H Cardiac Enzymes 11/04/17 11/04/17 11/04/17 Range/Units 20:37 20:37 20:38 Total Creatine Kinase 232 H 233 H (24-195) IU/L CK-MB (CK-2) 6.1 H (0-4.9) ng/ml Troponin T < 0.01 (0-0.03) ng/ml Liver Function 11/04/17 Range/Units 20:38 Total Bilirubin 0.5 (0.0-1.0) mg/dL AST 29 (0-37) U/l ALT 26 (0-40) U/l Alkaline Phosphatase 112 (39-117) U/L Albumin 4.5 (3.2-5.2) gm/dL Medical - H&P: A/P - Narrative A/P Narrative: A/P Acute Hypoxic hypercapenic Respiratory failure Reactive Airway disease/ Acute COPD exacerbation Diabetes uncontrolled type 2 Hypertension coronary Artery disease, non compliant with treatment Acute Kidney Injury raynauds disease connective tissue disorder. Plan Admit to ICU [facility] Ventilation to maintain oxygenation and ventilation Trend ABG CXR clear, ET tube in place Fentanyl and propofol for sedation IV thiamine daily for now SSI insulin for Glucose control OG tube to be placed Resume home meds when verified Await D Dimer, if high, will use therapeutic insulin and consider CTA in AM, anticipate improvement in renal function by then. check utox, DVT hep sq for now Diet NPO Full code. Social History - Social History education level: high school occupational status: unemployed sexually active: Yes - Tobacco smoking status: Current every day smoker - Alcohol alcohol intake frequency: does not drink - Substance use substance use type: does not use - Home Safety working smoke detector in home: Yes
[2017-11-04] MEDS ORDERED: DEXTROSE 50% 50 ML VIAL IV PRN (22:48)
[2017-11-04] MEDS ORDERED: ACETAMINOPHEN 160 MG/5 ML ORAL.SOL PT PRN (22:48)
[2017-11-04] MEDS ORDERED: ONDANSETRON 4 MG/2 ML VIAL IV PRN (22:48)
[2017-11-04 22:56] LABS: Amphetamine Screen,Urine SUSPECT POSITIVE (NONDETECTED); Benzodiazepines Screen,Urine SUSPECT POSITIVE (NONDETECTED); Cocaine Screen,Urine NONE DETECTED (NONDETECTED); Opiate Screen,Urine SUSPECT POSITIVE (NONDETECTED); Oxycodone, Urine Screen NONE DETECTED (NONDETECTED)
[2017-11-04] MEDS ORDERED: fentaNYL 100 MCG/2 ML VIAL IV ONE ×3 (22:57→23:02)
[2017-11-04 22:59] LABS: Appearance,Urine HAZY; Bacteria,Urine 0 /hpf (0); Bilirubin,Urine NEG (NEG); Color,Urine YELLOW; Glucose,Urine (UA) NEGATIVE (NEG); Leukocyte Esterase,Urine NEG /uL (NEG); Mucus,Urine MANY /hpf (0); Protein,Urine 30 mg/dL (NEG); Specific Gravity,Urine 1.019 (1.000-1.035); Urine Amorphous Crystals FEW /hpf (0); Urine Blood NEG mg/dL (<0.03); Urine Hyaline Cast 79 /lpf (0-2); Urine RBC 5 /hpf (0-1); Urine Squamous Epithelial Cell 1 /hpf (0-4); Urine Transitional Epi Cells < 1 /hpf (0-2); Urine WBC 4 /hpf (0-4)
[2017-11-04] MEDS: fentaNYL 2,500 MCG in 0.9 % SODIUM CHLORIDE 200 ML IV SCH ×2 (23:00→23:36)
[2017-11-04] MEDS: LACTATED RINGERS 1,000 ML IV SCH (23:34)
[2017-11-04] MEDS: PROPOFOL 1,000 MG in PREMIX 1 BAG IV SCH (23:36)
[2017-11-05] MEDS: IPRATROPIUM/ALBUTEROL 3 ML AMPUL.NEB NEB SCH ×4 (00:05→12:13)
[2017-11-05] MEDS: INSULIN LISPRO 1 UNIT/0.01 ML UNIT SQ SCH ×3 (00:29→09:55)
[2017-11-05] MEDS ORDERED: MIDAZOLAM PF 50 MG in 0.9 % SODIUM CHLORIDE 90 ML IV SCH (00:30)
[2017-11-05] MEDS ORDERED: INSULIN LISPRO 1 UNIT/0.01 ML UNIT SQ ONE (00:32)
[2017-11-05] MEDS ORDERED: IPRATROPIUM/ALBUTEROL 3 ML AMPUL.NEB NEB ONE (03:12)
[2017-11-05] MEDS ORDERED: PROPOFOL 100 ML IV ONE (03:26)
[2017-11-05] MEDS: LACTATED RINGERS 1,000 ML IV SCH ×2 (04:47→10:38)
[2017-11-05 05:51] LABS: Basophils # (Auto) 0 K/mcL (0.0-0.3); Basophils % (Auto) 0 % (0.0-2.0); Eosinophils # (Auto) 0 K/mcL (0.0-0.7); Eosinophils % (Auto) 0 % (0.0-7.0); Lymphocytes # (Auto) 0.6 K/mcL (1.5-4.8); Lymphocytes % (Auto) 5.6 % (15.5-49.0); Mean Cell Volume 79.2 fL (80.0-100.0); Mean Corpuscular HGB Conc 34.6 g/dL (31.0-36.0); Mean Corpuscular Hemoglobin 27.4 pg (26.0-34.0); Monocytes # (Auto) 0.2 K/mcL (0.1-0.9); Monocytes % (Auto) 1.4 % (1.0-12.0); Platelet Count 171 K/mcL (140-440); RBC 4.22 M/mcL (4.50-5.90); Red Cell Distribution Width 16.2 % (11.5-14.5)
--- NOTE | 2017-11-05 05:59 | XRay Report ---
INDICATION: Hypoxia. Status post intubation. TECHNIQUE: AP chest x-ray, portable upright COMPARISON: 11/04/2017, 10/07/2017 FINDINGS: Endotracheal tube with its tip 3 cm above the maria isabel. Lungs remain negative. No focal pulmonary parenchymal infiltrate. Heart size and vascularity are normal. No pulmonary edema. IMPRESSION: Endotracheal tube tip 3 cm above the maria isabel Interpreted and Authenticated by: Zeus Carpenter 11/05/17
[2017-11-05] MEDS ORDERED: methylPREDNISolone SOD SUCC 125 MG/2 ML VIAL IV SCH (06:00)
[2017-11-05 06:14] LABS: ALT/SGPT 20 U/l (0-40); Albumin 3.7 gm/dL (3.2-5.2); Albumin/Globulin Ratio 1.5 (1.0-2.3); Alkaline Phosphatase 89 U/L (39-117); Bilirubin,Direct < 0.2 mg/dL (0.0-0.3); Blood Urea Nitrogen 33 mg/dl (6-20); Gamma Glutamyl Transpeptidase 80 U/L (8-61); Uric Acid 7.2 mg/dL (2.5-8.0)
--- NOTE | 2017-11-05 06:35 | XRay Report ---
INDICATION: Hypoxia TECHNIQUE: AP chest x-ray, portable semiupright COMPARISON: 11/04/2017, 10/07/2017 FINDINGS: Endotracheal tube tip at the thoracic inlet. Esophagogastric tube with its tip off the plane of this film. Lungs remain negative. No focal parenchymal infiltrate or mass. Heart size and vascularity are normal. No pulmonary edema. No pulmonary congestion. No acute abnormality or interval change IMPRESSION: 1. Endotracheal tube tip at the thoracic inlet 2. No acute abnormality. Interpreted and Authenticated by: Zeus Carpenter 11/05/17
[2017-11-05] MEDS ORDERED: ENOXAPARIN 100 MG/ML SYRINGE SQ SCH (06:56)
[2017-11-05] MEDS ORDERED: IOPAMIDOL 100 ML BOTTLE IV ONE (08:12)
--- NOTE | 2017-11-05 08:31 | Cat Scan Report ---
CLINICAL INFORMATION: Hypoxia COMPARISON: Chest x-rays dated 11/05/2017, 11/04/2017, 10/07/2017, 09/28/2017. Previous abdominal and pelvic CT scan dated 03/15/2010 TECHNIQUE: Axial images obtained through the chest. 80 mL intravenous contrast was administered, and scanning was performed during pulmonary arterial phase. Sagittally and coronally reformatted images were obtained. MIP reformatted images. FINDINGS: Main pulmonary artery, right pulmonary artery, left pulmonary artery are negative. No intraluminal filling defects. Negative examination for pulmonary embolism. No lobar, segmental, or subsegmental abnormalities. There is mild bilateral dependent atelectasis. There is a 6 mm noncalcified right lower lobe nodule, image 60/110. There is a 5 mm right lower lobe noncalcified nodule, image 58/110. Fleischner Society recommendations: Low risk patient, no follow-up. High risk patient, optional [address] follow-up No other focal pulmonary parenchymal abnormalities. No bronchiectasis. Honeycombing. No significant emphysema. Nonspecific mediastinal lymph nodes. There are 2 15 mm perivascular nodes. There are small pretracheal nodes. No pathologic hilar adenopathy. No pericardial fluid. There is coronary artery calcification with extensive calcification of the left anterior descending coronary artery. Thoracic aorta is negative. No thoracic aortic aneurysm. No dissection. No pathologic axillary or supraclavicular adenopathy. There is an endotracheal tube in the trachea. There is an esophagogastric tube the stomach. The spleen is not imaged in its entirety. Spleen measures 9.0 cm in mediolateral dimension, 13.6 cm in AP dimension. The craniocaudal extent of the spleen is not evaluated. Findings are consistent with splenomegaly. There is a low density mass peers to arise from the left adrenal gland. This measures 3.0 cm. This has rim calcification. This is stable. This may be related to old adrenal hemorrhage or benign adenoma. No sternal or rib lesions. No thoracic compression fracture IMPRESSION: 1. Negative examination for pulmonary embolism 2. Mild bilateral dependent atelectasis. Two small noncalcified nodules in the right lower lobe 3. Atherosclerotic disease as above 4. Probable splenomegaly although the entire spleen is not imaged 5. Benign left adrenal mass with rim calcification. Findings are stable since 03/15/2010 The exam was performed using radiation dose optimization techniques including, but not limited to, automated exposure control, adjustment of the mA and/or kV according to patient size and use of iterative reconstruction technique. Interpreted and Authenticated by: Zeus Carpenter 11/05/17
[2017-11-05] MEDS ORDERED: HEPARIN 5,000 UNIT/ML VIAL SQ SCH (09:00)
[2017-11-05] MEDS ORDERED: CHLORHEXIDINE GLUCONATE 1 ML ORAL.SOL SWABMOUTH SCH (09:00)
[2017-11-05] MEDS ORDERED: FAMOTIDINE/PF 20 MG/2 ML VIAL IV SCH (09:00)
[2017-11-05] MEDS: HEPARIN 5,000 UNIT/ML VIAL SQ SCH ×2 (09:34→10:08)
[2017-11-05] MEDS: 0.9 % SODIUM CHLORIDE 10 ML SYRINGE IV SCH (09:39)
[2017-11-05] MEDS ORDERED: THIAMINE 100 MG in 0.9 % SODIUM CHLORIDE 50 ML IV SCH (10:00)
--- NOTE | 2017-11-05 10:14 | Internal Med Progress Note ---
Medical - PN: Subj Patient information: Note initiated : 11/05/17 at 10:12 am Service Date, if different from initiated Date: [] Patient: Jordi Nice a 57 y/o M admitted on 11/04/17 for fall found down with low o2 sats. Chief Complaint: [] Interval history: Mr. Nice is a 57 year old M with h/o Dm, copd, cad, presented to the ER after being acutely short of breath, patient on my eval was intubated and sedated, history from chart review. No family by the bed side. The pt was brought in by EMS for acute sob, hypoxia and hypotension, oxygen sats were in 60's on presentation on 15L NRB, the patient was placed on bipap, and it seems patient was wheezing on exam he was placed on bipap, duonebs and narcan given without much response, patient was able to communicate his wishes to the ER provider initialy he declined intubation, but later agreed for same. Given he had not improved with bipap, and was still in respiratory distress, he was intubated by Anesthesia. patient was recently in ER at [facility] with pancreatitis, He as admitted to this hospital in september it seems with hyperglycemia and had signed out AMA. utox, d dmier pending. Pt will be admitted to the hospital for further management ABG on Fio1 40 , peep 5, rr 14, tv 500 PH 7.28 PCO2 50, Po2 112, lactic acid 0.6 7/ Pt seen examined, no acute overnight overnight events On vent, sedated well, bp on the lower end, D dmier elevated, CTA neg for PE pt on baseline vent parameters, wean off sedation and see how his mental status is extubate if able. Pertinent ROS: uanble Additional PMFSH (Level 3 Only): Medical History Fibromyalgia (Chronic) Diabetic cheirarthropathy (Chronic) Encounter for long-term (current) use of high-risk medication (Chronic) Raynaud phenomenon (Acute) Connective tissue disease (Suspected) Buerger's disease (Chronic) BPH (benign prostatic hyperplasia) (Chronic) CAD (coronary artery disease) (Chronic) Colitis, ulcerative (Chronic) Diastasis of muscle (Chronic) Hyperglyceridemia (Chronic) Low back pain (Chronic) Obesity (Chronic) Raynauds syndrome (Chronic) Seizures (Chronic) Sexual dysfunction (Chronic) AUGUSTUS positive (Acute) Diabetes mellitus (Chronic) Diabetic renal disease (Chronic) Diabetic neuropathy (Chronic) Depressive disorder (Chronic) Tobacco dependence syndrome (Chronic) Insomnia (Chronic) Obstructive sleep apnea of adult (Chronic) Chronic pain (Chronic 11/26/12) Epilepsy (Chronic 11/26/12) Glaucoma (Chronic) Hypertensive retinopathy (Chronic) Cataract (Chronic) Essential hypertension (Chronic) Chronic obstructive lung disease (Chronic) Coronary atherosclerosis (Chronic) GERD (gastroesophageal reflux disease) (Chronic) Multiple joint pain (Chronic) Lumbar radiculopathy (Chronic) Chronic back pain (Chronic) Degenerative, intervertebral disc (Chronic) Hypoxia (Chronic) 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) - Constitutional Vitals: Vital Signs Temp Pulse Resp BP Pulse Ox 97.0 F 79 18 105/70 97 11/05/17 00:00 11/05/17 07:00 11/05/17 08:20 11/05/17 02:00 11/05/17 08:20 Period Temp Pulse Resp BP Sys/Singleton Pulse Ox Last 24 Hr 95.9 F-97.4 F 67-108 0-32 74-162/51-100 72-100 Intake and Output 11/04/17 11/05/17 11/05/17 21:59 05:59 13:59 Intake Total 1999 3104 / 3104 Output Total 795 / 795 50 / 50 Balance 1999 230 / 2309 -50 / -50 Weight 225 lb 220 lb 11.2 oz Intake & Output: Intake & Output 11/04/17 11/05/17 11/05/17 21:59 05:59 13:59 Intake Total 1999 3104 / 3104 Output Total 795 / 795 50 / 50 Balance 1999 / 2309 -50 / -50 Weight 225 lb 220 lb 11.2 oz Intake: IV 1999 3104 / 3104 Sodium Chloride 0.9% 1,000 ml @ 1000 / 1000 1000 / 1000 Wide Open IV BOLUS ONE Rx#: [id number] Lactated Ringers 1,000 ml @ 200 1000 / 1000 1999 / 1999 mls/hr IV .Q5H ANNIKA Rx#: [id number] Diprivan 1,000 mg In Premix 1 4 / 4 Bag @ 5 MCG/KG/MIN 3.06 mls/hr IV .Q24H ANNIKA Rx#:[id number] Output: Gastric Drainage 250 / 250 NG/OG 250 / 250 Urine Catheter Amount 545 / 545 50 / 50 Other: # Bowel Movements 0 Exam: Constitutional; Afebrile, drowsy, sedated on mech vent. Eyes- No icterus, , No periorbital swelling Neck- Midline trachea, supple Respiratory system: Air Entry equal on both sides, No crackles or wheezing, no rhonchi. CVS- Rate rhythm regular, S1,S2 heard, no gallop, no rub. 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 Medical - PN: Obj Da - Labs CBC & Chem 7: 11/05/17 04:03 11/05/17 04:03 Labs: Abnormal Lab Results 11/05/17 11/05/17 11/04/17 04:03 04:03 21:45 WBC 11.4 H RBC 4.22 L Hgb 11.6 L Hct 33.4 L POC Hct MCV 79.2 L RDW 16.2 H Gran % 93.0 H Lymph % (Auto) 5.6 L Gran # 10.6 H Lymph # (Auto) 0.6 L D-Dimer Carbon Dioxide 21 L Anion Gap POC BUN BUN 33 H Creatinine POC Creatinine Glucose 250 H POC Glucose Calcium GGT 80 H Total Creatine Kinase CK-MB (CK-2) Myoglobin Triglycerides 676 H Urine Protein 30 A Urine Urobilinogen 4.0 A Urine RBC 5 H Amorphous Crystals Few A Hyaline Casts 79 H Urine Mucus Many A Urine Opiates Screen Ur Amphetamines Screen U Benzodiazepines Scrn 11/04/17 11/04/17 11/04/17 21:45 21:35 20:38 WBC RBC Hgb Hct POC Hct 37.0 L MCV RDW Gran % Lymph % (Auto) Gran # Lymph # (Auto) D-Dimer > 20.00 H Carbon Dioxide Anion Gap 18.0 H POC BUN 38 H BUN 39 H Creatinine 2.0 H POC Creatinine 2.1 H Glucose 259 H POC Glucose 261 H Calcium 10.6 H GGT Total Creatine Kinase 233 H CK-MB (CK-2) 6.1 H Myoglobin 263 H Triglycerides Urine Protein Urine Urobilinogen Urine RBC Amorphous Crystals Hyaline Casts Urine Mucus Urine Opiates Screen Suspect positive A Ur Amphetamines Screen Suspect positive A U Benzodiazepines Scrn Suspect positive A 11/04/17 11/04/17 20:37 20:37 WBC 12.1 H RBC Hgb 13.0 L Hct 38.4 L POC Hct MCV 78.4 L RDW 15.6 H Gran % Lymph % (Auto) Gran # Lymph # (Auto) D-Dimer Carbon Dioxide Anion Gap POC BUN BUN Creatinine POC Creatinine Glucose POC Glucose Calcium GGT Total Creatine Kinase 232 H CK-MB (CK-2) Myoglobin Triglycerides Urine Protein Urine Urobilinogen Urine RBC Amorphous Crystals Hyaline Casts Urine Mucus Urine Opiates Screen Ur Amphetamines Screen U Benzodiazepines Scrn Meds: Medications Acetaminophen (Tylenol) 650 mg PT Q6HP PRN PRN Reason: PAIN/FEVER > 101 Albuterol/Ipratropium (Duoneb) 3 ml NEB Q4HRT [facility] Last Admin: 11/05/17 07:07 Dose: 3 ml Chlorhexidine Gluconate (Peridex) 15 ml SWABMOUTH BID [facility] Last Admin: 11/05/17 09:24 Dose: 15 ml Dextrose (Dextrose 50%) 0 ml IV UD PRN PRN Reason: Hypoglycemia Diagnostic Test (Pha) (Accu-Chek) 1 each FS Q6 [facility] Last Admin: 11/05/17 09:41 Dose: 1 each Famotidine (Pepcid) 20 mg IV Q12 [facility] Last Admin: 11/05/17 09:24 Dose: 20 mg Heparin Sodium (Porcine) (Heparin) 5,000 unit SQ Q12 [facility] Last Admin: 11/05/17 10:08 Dose: Not Given Propofol 1,000 mg/ Premix 100 mls @ 3.06 mls/hr IV .Q24H ANNIKA; 5 MCG/KG/MIN PRN Reason: Protocol Last Admin: 11/04/17 23:36 Dose: Not Given Fentanyl 2,500 mcg/ Sodium (Chloride) 250 mls @ 7.14 mls/hr IV Q24H [facility]; 0.7 MCG/KG/HR PRN Reason: Protocol Last Admin: 11/04/17 23:00 Dose: Not Given Lactated Ringer's (Lactated Ringers) 1,000 mls @ 200 mls/hr IV .Q5H [facility] Stop: 11/05/17 13:47 Last Admin: 11/05/17 04:47 Dose: 200 mls/hr Thiamine HCl 100 mg/ Sodium (Chloride) 51 mls @ 50 mls/hr IV DAILY ANNIKA Stop: 11/07/17 10:02 Last Admin: 11/05/17 09:23 Dose: 50 mls/hr Midazolam HCl 50 mg/ Sodium (Chloride) 100 mls @ 4 mls/hr IV Q24H ANNIKA; 0.02 MG/ KG/HR PRN Reason: Protocol Last Admin: 11/05/17 00:45 Dose: 0.04 mg/kg/hr, 10 mls/hr Insulin Human Lispro (Humalog) 0 unit SQ Q6 ANNIKA PRN Reason: Protocol Last Admin: 11/05/17 09:55 Dose: 8 unit Methylprednisolone Sodium Succinate (Solu-Medrol) 62.5 mg IV Q8 ANNIKA Last Admin: 11/05/17 09:24 Dose: 62.5 mg Ondansetron HCl (Zofran) 4 mg IV Q4-6HP PRN PRN Reason: Nausea And Vomiting Sodium Chloride (Saline Flush) 10 ml IV Q8 [facility] Last Admin: 11/05/17 09:39 Dose: 10 ml Medical - PN: A/P - Time Spent With Patient Total time spent is greater than 50% in coordination of care (as documented) at patient's floor/unit and/or counseling patient: - Narrative A/P Narrative: A/P Acute Hypoxic hypercapenic Respiratory failure Reactive Airway disease/ Acute COPD exacerbation Methamphetamnie use/ overdose Diabetes uncontrolled type 2 Hypertension coronary Artery disease, non compliant with treatment Acute Kidney Injury raynauds disease connective tissue disorder. Plan Admit to ICU [facility] Ventilation to maintain oxygenation and ventilation Pt resp status secondary to meth use? CXR clear, ET tube in place Fentanyl and propofol versed for sedation, wean off to evaluate mental status. IV thiamine daily for now SSI insulin for Glucose control OG tube to be placed Resume home meds when verified Plan to evaluate for extubation today, I feel his reason for intubatin is likely reactive airway disease, due to meth use. He on baseline vent parameter, stable abg, pressures on vent are not elevated, no wheeze on exam DVT hep sq for now Diet NPO Full code. Medical - PN: Qual - VTE Deep Vein Thrombosis/Pulmonary Embolism Present on Admission: No
[2017-11-05] MEDS: PROPOFOL 1,000 MG in PREMIX 1 BAG IV SCH (10:39)
[2017-11-05] MEDS ORDERED: CLOPIDOGREL 75 MG TABLET PO SCH (11:44)
[2017-11-05] MEDS ORDERED: LISINOPRIL 10 MG TABLET PO SCH (11:44)
[2017-11-05] MEDS ORDERED: fentaNYL 2,500 MCG in 0.9 % SODIUM CHLORIDE 200 ML IV PRN (11:45)
== END 2017-11-05 13:15 | disposition left against medical advice (07) | DRG 208 ==
LOC: ED 20:08 → ICU 22:44
PROVIDERS: ADMIT Internal Medicine; ATTEND Internal Medicine

== ENCOUNTER 2017-11-27 15:46 | Observation (INO) ==
[~2017-11-27 15:46] MED LIST: INSULIN REGULAR, HUMAN 50 UNIT in 0.9 % SODIUM CHLORIDE 99.5 ML IV SCH
[2017-11-27] MEDS ORDERED: IOPAMIDOL 100 ML BOTTLE IV ONE (15:47)
[2017-11-27] MEDS ORDERED: 0.9 % SODIUM CHLORIDE 1,000 ML IV ONE ×2 (16:07→16:54)
[2017-11-27] MEDS ORDERED: INSULIN REGULAR, HUMAN 1 UNIT/0.01 ML UNIT IV ONE (16:29)
[2017-11-27] MEDS ORDERED: HYDROmorphone 2 MG/ML VIAL IV PRN ×2 (16:29→21:16)
[2017-11-27] MEDS ORDERED: INSULIN REGULAR, HUMAN 50 UNIT in 0.9 % SODIUM CHLORIDE 99.5 ML IV SCH (16:30)
[2017-11-27 16:45] LABS: Appearance,Urine CLEAR; Bacteria,Urine 0 /hpf (0); Bilirubin,Urine NEG (NEG); Color,Urine STRAW; Glucose,Urine (UA) >=500 mg/dL (NEG); Leukocyte Esterase,Urine 25 /uL (NEG); Mucus,Urine FEW /hpf (0); Protein,Urine NEG (NEG); Specific Gravity,Urine 1.028 (1.000-1.035); Urine Amorphous Crystals FEW /hpf (0); Urine Blood NEG mg/dL (<0.03); Urine Budding Yeast FEW /hpf (0); Urine RBC 6 /hpf (0-1); Urine Squamous Epithelial Cell 1 /hpf (0-4); Urine WBC 4 /hpf (0-4); Urobilinogen,Urine NEG (NEG)
[2017-11-27 16:49] LABS: Amphetamine Screen,Urine NONE DETECTED (NONDETECTED); Benzodiazepines Screen,Urine NONE DETECTED (NONDETECTED); Cocaine Screen,Urine NONE DETECTED (NONDETECTED); Opiate Screen,Urine NONE DETECTED (NONDETECTED); Oxycodone, Urine Screen NONE DETECTED (NONDETECTED)
[2017-11-27 17:46] LABS: Albumin 4.4 gm/dL (3.2-5.2); Albumin/Globulin Ratio 1.3 (1.0-2.3); Alkaline Phosphatase 161 U/L (39-117); Amylase 51 U/L (28-100); Blood Urea Nitrogen 19 mg/dl (6-20); Lipase 131 U/L (7-60)
[2017-11-27 17:52] LABS: ALT/SGPT < 5 U/l (0-40)
--- NOTE | 2017-11-27 18:02 | Cat Scan Report ---
CLINICAL INFORMATION: Abdominal pain. History of pancreatitis COMPARISON: 03/15/[address] TECHNIQUE: Following enteric contrast, 80 cc of Isovue-300 were injected intravenously, and 60 seconds later, 0.625 mm helical slices were obtained from the mid heart through the subtrochanteric regions. Following reconstruction, 2.5 mm sagittal, coronal and axial reformatted images were processed and reviewed at bone, lung and soft tissue windows. Five minutes later, 0.625 mm helical slices were obtained from the mid heart through the kidneys and viewed at soft tissue windows.The exam was performed using radiation dose optimization techniques including, but not limited to, automated exposure control, adjustment of the mA and/or kV according to patient size and use of iterative reconstruction technique. FINDINGS: Lung bases show scattered scarring peripherally. No effusions. The visualized heart is borderline enlarged. Mild concentric wall thickening thickening the distal esophagus which is worsened slightly and likely due to chronic peptic disease/reflux. Images through the abdomen show mild fatty changes within the liver - stable. No focal hepatic lesions. The gallbladder is surgically absent. Intrahepatic and common bile ducts are normal caliber. Both kidneys, spleen, pancreas and aorta are normal in size and figuration attenuation without focal lesion. A 3.2 cm left adrenal mass with peripheral calcifications and stable since 2009. Right adrenal gland is normal. There is no free air, free fluid or adenopathy. Stomach, small last large bowel and appendix are all normal. Images through the pelvis show prostate, seminal vesicles and urinary bladder to be normal. There is a 7 cm right inguinal hernia containing only mesenteric fat. Bone windows show no osseous normality IMPRESSION: 1. No cause identified for acute abdominal pain. No evidence of pancreatitis 2. Mild symmetric wall thickening of the distal esophagus showing slight progression - likely peptic disease from reflux esophagitis 3. 3.2 cm left adrenal mass with rim calcification - stable since 2009. It is obviously benign. 4. 7 cm right femoral hernia containing only mesenteric fat. Interpreted and Authenticated by: Zeus Lindsay 11/27/17
[2017-11-27] MEDS ORDERED: INSULIN REGULAR, HUMAN 50 UNIT in 0.9 % SODIUM CHLORIDE 99.5 ML IV ONE (18:08)
[2017-11-27 18:35] LABS: Basophils # (Auto) 0 K/mcL (0.0-0.3); Basophils % (Auto) 0.1 % (0.0-2.0); Eosinophils # (Auto) 0.1 K/mcL (0.0-0.7); Eosinophils % (Auto) 1.3 % (0.0-7.0); Granulocytes % (Auto) 63.5 % (38.0-78.0); Lymphocytes # (Auto) 2.3 K/mcL (1.5-4.8); Lymphocytes % (Auto) 30.9 % (15.5-49.0); Mean Cell Volume 79.3 fL (80.0-100.0); Mean Corpuscular HGB Conc 32.3 g/dL (31.0-36.0); Mean Corpuscular Hemoglobin 29.6 pg (26.0-34.0); Monocytes # (Auto) 0.3 K/mcL (0.1-0.9); Monocytes % (Auto) 4.2 % (1.0-12.0); Platelet Count 245 K/mcL (140-440); RBC 4.77 M/mcL (4.50-5.90); Red Cell Distribution Width 16.9 % (11.5-14.5)
[2017-11-27] MEDS ORDERED: INSULIN GLARGINE, HUMAN 1 UNIT/0.01 ML SQ ONE (18:54)
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
--- NOTE | 2017-11-27 19:06 | Internal Med History&Physical ---
Medical - H&P: HPI Patient information: Note initiated : 11/27/17 at 7:05 pm Service Date, if different from initiated Date: [] Patient: Jordi Nice a 57 y/o M admitted on for nausea, dizziness, states he has pancreatitis. Chief Complaint: [] Chief complaint: abdominal pain History of present illness: Mr. Nice is a 57 year old M with history of insulin-dependent diabetes. Patient apparently stopped taking insulin roughly 10-12 days ago after he had a breakup with his girlfriend. He also has been complaining of abdominal pain along with nausea. \ He presented to the ER with initial workup revealing blood sugars over 600. Elevated anion gap at 18. CT abdomen revealed esophagitis without evidence of pancreatitis. After initial crystalloids and insulin drip hospitalist service was consulted in light of DKA At the time of evaluation patient is alert and oriented. He feels down and depressed. He however is not actively suicidal. He denies fever chills but endorses abdominal pain 4 out of 10-8 out of 10 midepigastric without radiation. He denies associated nausea vomiting, fever, chills, weight loss Review of systems 10 point review systems was performed and is negative except as discussed above Medical - H&P: PMH Medical history: DM type II COPD CAD Medical History Fibromyalgia (Chronic) Diabetic cheirarthropathy (Chronic) Encounter for long-term (current) use of high-risk medication (Chronic) Raynaud phenomenon (Acute) Connective tissue disease (Suspected) Buerger's disease (Chronic) BPH (benign prostatic hyperplasia) (Chronic) CAD (coronary artery disease) (Chronic) Colitis, ulcerative (Chronic) Diastasis of muscle (Chronic) Hyperglyceridemia (Chronic) Low back pain (Chronic) Obesity (Chronic) Raynauds syndrome (Chronic) Seizures (Chronic) Sexual dysfunction (Chronic) AUGUSTUS positive (Acute) Diabetes mellitus (Chronic) Diabetic renal disease (Chronic) Diabetic neuropathy (Chronic) Depressive disorder (Chronic) Tobacco dependence syndrome (Chronic) Insomnia (Chronic) Obstructive sleep apnea of adult (Chronic) Chronic pain (Chronic 11/26/12) Epilepsy (Chronic 11/26/12) Glaucoma (Chronic) Hypertensive retinopathy (Chronic) Cataract (Chronic) Essential hypertension (Chronic) Chronic obstructive lung disease (Chronic) Coronary atherosclerosis (Chronic) GERD (gastroesophageal reflux disease) (Chronic) Multiple joint pain (Chronic) Lumbar radiculopathy (Chronic) Chronic back pain (Chronic) Degenerative, intervertebral disc (Chronic) Hypoxia (Chronic) 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) Surgical history: Past Surgical History History of bilateral cataract extraction (Chronic) History of cholecystectomy (Chronic) History of elbow surgery (Chronic) History of foot surgery (Chronic) History of left knee surgery (Chronic) Pertinent family history: Mother Malignant tumor of pancreas Father Myocardial infarction Social history: lives with girlfriend Daily smoker Occasional alcohol History of methamphetamine abuse Medical - H&P: Meds Home Medications Medication Instructions Recorded Confirmed Type Clopidogrel [Plavix] 75 mg PO ONCE 09/28/17 11/27/17 History Lisinopril [Zestril] 10 mg PO DAILY 09/28/17 11/27/17 History Mirtazapine [Remeron] 30 mg PO DAILY 09/28/17 11/27/17 History Pantoprazole Sodium [Protonix] 20 mg PO DAILY 09/28/17 11/27/17 History Pregabalin [Lyrica] 200 mg PO BID 09/28/17 11/27/17 History Rosuvastatin Calcium [Crestor] 20 mg PO DAILY 09/28/17 11/27/17 History Sertraline HCl [Zoloft] 50 mg PO DAILY 09/28/17 11/27/17 History tiZANidine HCL [Zanaflex] 8 mg PO TID 09/28/17 11/27/17 History traZODone HCL [Desyrel] 150 - 300 mg PO HS 09/28/17 11/27/17 History Varenicline Tartrate [Chantix] 1 mg PO BID 11/27/17 11/27/17 History Allergies Allergy/AdvReac Type Severity Reaction Status Date / Time No Known Drug Allergies Allergy Verified 10/07/17 21:10 Medical - H&P: Exam - Constitutional Vitals: Temp Pulse Resp BP Pulse Ox 98.0 F 76 18 149/85 91 11/27/17 15:48 11/27/17 18:31 11/27/17 18:31 11/27/17 18:31 11/27/17 18:31 General appearance: no acute distress Exam: Alert oriented Nonlabored breathing Eye movements symmetrical No eardischarge Neck no lymphadenopathy Lungs chest clear to auscultation bilaterally S1-S2 regular rhythm Abdomen soft nontender nondistended Lower extremity no cyanosis clubbing or edema Skin no suspicious lesion Psych alert cooperative Neuro nonfocal Normal range of motion of the joints Medical - H&P: Reslt - Labs CBC & Chem 7: 11/27/17 16:30 11/27/17 16:30 Labs: Short CBC 11/27/17 Range/Units 16:30 WBC 7.6 (4.5-11.0) K/mcL Hgb 14.1 (13.5-16.5) g/dL Hct 37.8 L (41.0-55.0) % Plt Count 245 (140-440) K/mcL BMP 11/27/17 16:30 Sodium 128 L Potassium 4.4 Chloride 87 L Carbon Dioxide 23 BUN 19 Creatinine 1.0 Glucose 648 H* Calcium 10.2 Liver Function 11/27/17 Range/Units 16:30 Total Bilirubin 0.2 (0.0-1.0) mg/dL AST < 5 (0-37) U/l ALT < 5 (0-40) U/l Alkaline Phosphatase 161 H (39-117) U/L Albumin 4.4 (3.2-5.2) gm/dL Urine 11/27/17 Range/Units 16:18 Urine Color Straw Urine Appearance Clear Urine pH 6.0 (5.0-9.0) Ur Specific [place] 1.028 (1.000-1.035) Urine Protein Neg (NEG) mg/dL Urine Glucose (UA) >=500 A (NEG) mg/dL Medical - H&P: A/P (1) Diabetic ketoacidosis Current visit: No Status: Acute * DKA- managed per guidelines. Continue insulin drip. Keep nothing by mouth. Crystalloids electrolyte monitoring and management * Abd pain- history of erosive esophagitis continue PPI/as needed opioids no evidence of pancreatitis on CT abdomen. * Neuropathy continue home dose Lyrica * History of COPD-currently stable. Continue as needed bronchodilators * History of CAD on Plavix * hyperlipidemia on statin * Anxiety disorder on sertraline/trazodone * History of Raynaud's disease * Full code * Prophylaxis heparin Plan * ICU admit for DKA management * Insulin drip/electrolyte management/crystalloids * Pre-existing medical condition management on home meds
[2017-11-27] MEDS ORDERED: POTASSIUM CHLORIDE 20 MEQ PACKET PO PRN (20:01)
[2017-11-27] MEDS ORDERED: ACETAMINOPHEN 325 MG TABLET PO PRN (20:01)
[2017-11-27] MEDS ORDERED: 0.9 % SODIUM CHLORIDE 1,000 ML IV SCH (20:01)
[2017-11-27] MEDS ORDERED: POTASSIUM CHLORIDE 40 MEQ in DEXTROSE 5% IN WATER 500 ML IV PRN (20:01)
[2017-11-27] MEDS ORDERED: ONDANSETRON 4 MG/2 ML VIAL IV PRN (20:01)
[2017-11-27] MEDS ORDERED: MAGNESIUM SULFATE 2 GM/50 ML BAG IV PRN (20:01)
[2017-11-27] MEDS ORDERED: ACETAMINOPHEN 1,000 MG/100 ML BOTTLE IV PRN (20:01)
[2017-11-27] MEDS ORDERED: INSULIN REGULAR, HUMAN 1 UNIT/0.01 ML UNIT ONE ×2 (20:24→21:17)
[2017-11-27] MEDS ORDERED: MIRTAZAPINE 15 MG TABLET PO SCH (21:00)
[2017-11-27] MEDS ORDERED: SENNOSIDES/DOCUSATE SODIUM 1 TAB TABLET PO SCH (21:00)
[2017-11-27] MEDS ORDERED: ATORVASTATIN 20 MG TABLET PO SCH (21:00)
[2017-11-27] MEDS ORDERED: PANTOPRAZOLE 40 MG VIAL IV ONE (21:16)
[2017-11-27] MEDS ORDERED: INSULIN REGULAR, HUMAN 1 UNIT/0.01 ML UNIT IV PRN (21:18)
[2017-11-27] MEDS ORDERED: IPRATROPIUM/ALBUTEROL 3 ML AMPUL.NEB NEB PRN (21:29)
[2017-11-27] MEDS: PREGABALIN 100 MG CAPSULE PO SCH (22:48)
[2017-11-27] MEDS: tiZANidine 4 MG TABLET PO SCH (22:48)
[2017-11-27] MEDS: DOCUSATE SODIUM 100 MG CAPSULE PO SCH (22:48)
[2017-11-27] MEDS: HEPARIN 5,000 UNIT/ML VIAL SQ SCH (22:48)
[2017-11-27] MEDS: 0.9 % SODIUM CHLORIDE 10 ML SYRINGE IV SCH (22:49)
[2017-11-27] MEDS: HYDROcodone/APAP 5/325MG TABLET PO PRN (22:49)
[2017-11-27] MEDS ORDERED: traZODone HCL 50 MG TABLET ONE (23:20)
[2017-11-28] MEDS ORDERED: DEXTROSE 5%-1/2NS 1,000 ML IV SCH (00:30)
[2017-11-28 00:43] LABS: ALT/SGPT < 5 U/l (0-40); Albumin 3.6 gm/dL (3.2-5.2); Albumin/Globulin Ratio 1.2 (1.0-2.3); Alkaline Phosphatase 128 U/L (39-117); Bilirubin,Direct < 0.2 mg/dL (0.0-0.3); Blood Urea Nitrogen 15 mg/dl (6-20); Gamma Glutamyl Transpeptidase 92 U/L (8-61); Uric Acid 5.3 mg/dL (2.5-8.0)
[2017-11-28] MEDS ORDERED: 0.9 % SODIUM CHLORIDE 100 ML IV ONE (02:05)
[2017-11-28] MEDS ORDERED: INSULIN REGULAR, HUMAN 1 UNIT/0.01 ML UNIT ONE (02:20)
[2017-11-28 05:55] LABS: ALT/SGPT 21 U/l (0-40); Albumin 3.5 gm/dL (3.2-5.2); Albumin/Globulin Ratio 1.2 (1.0-2.3); Alkaline Phosphatase 119 U/L (39-117); Bilirubin,Direct < 0.2 mg/dL (0.0-0.3); Blood Urea Nitrogen 13 mg/dl (6-20); Gamma Glutamyl Transpeptidase 91 U/L (8-61); Uric Acid 5.1 mg/dL (2.5-8.0)
[2017-11-28] MEDS: 0.9 % SODIUM CHLORIDE 10 ML SYRINGE IV SCH ×3 (06:08→22:37)
[2017-11-28 06:49] LABS: Mean Corpuscular HGB Conc 34.6 g/dL (31.0-36.0); Platelet Count 197 K/mcL (140-440); RBC 4.15 M/mcL (4.50-5.90); Red Cell Distribution Width 15.8 % (11.5-14.5)
[2017-11-28] MEDS: HYDROcodone/APAP 5/325MG TABLET PO PRN ×2 (07:29→19:08)
[2017-11-28] MEDS ORDERED: INSULIN LISPRO 1 UNIT/0.01 ML UNIT SQ SCH (07:30)
[2017-11-28] MEDS ORDERED: PANTOPRAZOLE 40 MG TABLET PO SCH (07:30)
[2017-11-28] MEDS ORDERED: PANTOPRAZOLE 40 MG VIAL IV SCH (07:30)
[2017-11-28 07:52] LABS: Eosinophils % (Manual) 4 % (0-7); Lymphocytes % 35 % (15-49); Monocytes % (Manual) 4 % (1-12); Platelet Estimate NORMAL (NORMAL); RBC Morphology NORMAL (NORMAL); Segmented Neutrophils % 57 % (38-78)
[2017-11-28] MEDS ORDERED: PANTOPRAZOLE SODIUM 20 MG PO SCH (09:00)
[2017-11-28] MEDS ORDERED: VARENICLINE TARTRATE 1 MG TABLET PO SCH (09:00)
[2017-11-28] MEDS ORDERED: CLOPIDOGREL 75 MG TABLET PO SCH (09:00)
[2017-11-28] MEDS ORDERED: SERTRALINE 50 MG TABLET PO SCH (09:00)
[2017-11-28] MEDS ORDERED: INSULIN GLARGINE, HUMAN 1 UNIT/0.01 ML SQ SCH ×2 (09:00→21:00)
[2017-11-28] MEDS ORDERED: MULTIVIT,THER IRON,CA,FA & MIN 1 TABLET PO SCH (09:00)
[2017-11-28] MEDS ORDERED: FISH OIL 1,000 MG CAPSULE PO SCH (09:00)
[2017-11-28] MEDS ORDERED: LISINOPRIL 10 MG TABLET PO SCH (09:00)
[2017-11-28] MEDS ORDERED: NON FORMULARY MEDICATION 1 DOSE MISCELL (Rosuvastatin Calcium [Crestor] 20 MG) PO SCH (09:00)
[2017-11-28] MEDS: DOCUSATE SODIUM 100 MG CAPSULE PO SCH ×2 (09:53→21:40)
[2017-11-28] MEDS: tiZANidine 4 MG TABLET PO SCH ×3 (09:54→21:41)
[2017-11-28] MEDS: PREGABALIN 100 MG CAPSULE PO SCH ×2 (09:54→21:40)
[2017-11-28] MEDS: HEPARIN 5,000 UNIT/ML VIAL SQ SCH ×2 (09:54→21:20)
[2017-11-28] MEDS ORDERED: POTASSIUM CHLORIDE 20 MEQ PACKET PO PRN (10:55)
[2017-11-28] MEDS ORDERED: ONDANSETRON 4 MG/2 ML VIAL IV PRN (10:55)
[2017-11-28] MEDS ORDERED: ACETAMINOPHEN 1,000 MG/100 ML BOTTLE IV PRN (10:55)
[2017-11-28] MEDS ORDERED: HYDROmorphone 2 MG/ML VIAL IV PRN (10:55)
[2017-11-28] MEDS ORDERED: ACETAMINOPHEN 325 MG TABLET PO PRN (10:55)
[2017-11-28] MEDS ORDERED: MAGNESIUM SULFATE 2 GM/50 ML BAG IV PRN (10:55)
[2017-11-28] MEDS ORDERED: POTASSIUM CHLORIDE 40 MEQ in DEXTROSE 5% IN WATER 500 ML IV PRN (10:55)
[2017-11-28] MEDS ORDERED: IPRATROPIUM/ALBUTEROL 3 ML AMPUL.NEB NEB PRN (10:55)
[2017-11-28] MEDS ORDERED: INSULIN REGULAR, HUMAN 1 UNIT/0.01 ML UNIT IV PRN (10:55)
[2017-11-28] MEDS: INSULIN LISPRO 1 UNIT/0.01 ML UNIT SQ SCH ×3 (12:38→19:22)
--- NOTE | 2017-11-28 16:45 | Internal Med Progress Note ---
Medical - PN: Subj Patient information: Note initiated : 11/28/17 at 4:33 pm Service Date, if different from initiated Date: [] Patient: Jordi Nice a 57 y/o M admitted on 11/27/17 for Diabetic Ketoacidosis. Chief Complaint: [] Interval history: Mr. Nice is a 57 year old M with history of insulin-dependent diabetes. Patient apparently stopped taking insulin roughly 10-12 days ago after he had a breakup with his girlfriend. He also has been complaining of abdominal pain along with nausea. \ He presented to the ER with initial workup revealing blood sugars over 600. Elevated anion gap at 18. CT abdomen revealed esophagitis without evidence of pancreatitis. After initial crystalloids and insulin drip hospitalist service was consulted in light of DKA At the time of evaluation patient is alert and oriented. He feels down and depressed. He however is not actively suicidal. He denies fever chills but endorses abdominal pain 4 out of 10-8 out of 10 midepigastric without radiation. He denies associated nausea vomiting, fever, chills, weight loss 11/28 Pt seen examined, no acute overnight issues, tolerating po diet well, ambulating hallways off insulin drip, back on home dose of insulin glucose still high, will continue home dose and monitor glucose levels will refer to DM education hopefully this will help Pertinent ROS: Denies headache, dizziness Denies chest pain, palpitations Denies cough or shortness of breath Denies abdominal pain, nausea or vomiting. - Constitutional Vitals: Vital Signs Temp Pulse Resp BP Pulse Ox 96.9 F L 73 18 110/75 98 11/28/17 15:50 11/28/17 15:50 11/28/17 15:50 11/28/17 15:50 11/28/17 15:50 Period Temp Pulse Resp BP Sys/Singleton Pulse Ox Last 24 Hr 96.9 F-98.4 F 61-102 12-31 110-168/65-143 91-100 Intake and Output 11/28/17 11/28/17 11/28/17 05:59 13:59 21:59 Intake Total 504 / 504 1817 / 1817 700 / 700 Output Total 450 / 450 975 / 975 500 / 500 Balance 54 / 54 842 / 842 200 / 200 Intake & Output: Intake & Output 11/28/17 11/28/17 11/28/17 05:59 13:59 21:59 Intake Total 504 / 504 1817 / 1817 700 / 700 Output Total 450 / 450 975 / 975 500 / 500 Balance 54 / 54 842 / 842 200 / 200 Intake: IV 504 / 504 757 / 757 Sodium Chloride 0.9% 1,000 ml @ 405 / 405 100 mls/hr IV .Q10H ANNIKA Rx#: [id number] Dextrose 5%-1/2Ns IV Solution 1 682 / 682 ,000 ml @ 100 mls/hr IV .Q10H ANNIKA Rx#:[id number] HumuLIN R 50 UNIT In Sodium 99 / 99 25 / 25 Chloride 0.9% 99.5 ml @ 5 UNIT/ HR 10 mls/hr IV DUR ANNIKA Rx#: [id number] Oral 1060 / 1060 700 / 700 Output: Urine Catheter Amount 450 / 450 Void Amount 975 / 975 500 / 500 Other: Meal Lunch Percent of Meal Consumed 100% Feeding Ability Independent Stool Size Large Stool Color Brown Stool Consistency Formed # Voids 1 # Bowel Movements 1 Exam: Constitutional; Afebrile, cooperative, alert, not in distress. Eyes- No icterus, , No periorbital swelling Ears- Ext ear normal, hearing normal to conversation. Neck- Midline trachea, supple Respiratory system: Air Entry equal on both sides, No crackles or wheezing, no rhonchi. CVS- Rate rhythm regular, S1,S2 heard, no gallop, no rub. 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 Medical - PN: Obj Da - Labs CBC & Chem 7: 11/28/17 03:30 11/28/17 03:30 Labs: Abnormal Lab Results 11/28/17 11/28/17 11/27/17 03:30 03:30 22:05 RBC 4.15 L Hgb 11.2 L Hct 32.4 L MCV 78.0 L RDW 15.8 H MPV 10.9 H Sodium Chloride Anion Gap Glucose 229 H 221 H Magnesium 1.5 L 1.5 L GGT 91 H 92 H Alkaline Phosphatase 119 H 128 H Triglycerides 1414 H 1405 H Lipase Urine Glucose (UA) Ur Leukocyte Esterase Urine RBC Amorphous Crystals Urine Yeast (Budding) 11/27/17 11/27/17 11/27/17 16:30 16:30 16:18 RBC Hgb Hct 37.8 L MCV 79.3 L RDW 16.9 H MPV 12.0 H Sodium 128 L Chloride 87 L Anion Gap 18.0 H Glucose 648 H* Magnesium GGT Alkaline Phosphatase 161 H Triglycerides Lipase 131 H Urine Glucose (UA) >=500 A Ur Leukocyte Esterase 25 A Urine RBC 6 H Amorphous Crystals Few A Urine Yeast (Budding) Few A Meds: Medications Acetaminophen (Tylenol) 650 mg PO Q4-6HP PRN PRN Reason: PAIN/FEVER > 101 Hydrocodone Bitart/Acetaminophen (Cutler 5/325mg) 1 tab PO Q12HP PRN PRN Reason: PAIN LEVEL 3-6 Albuterol/Ipratropium (Duoneb) 3 ml NEB Q4HP PRN PRN Reason: Shortness Of Breath Atorvastatin Calcium (Lipitor) 10 mg PO HS ANNIKA Clopidogrel Bisulfate (Plavix) 75 mg PO DAILY [facility] Diagnostic Test (Pha) (Accu-Chek) 1 each FS ACHS [facility] Last Admin: 11/28/17 11:45 Dose: 1 each Docusate Sodium (Colace) 100 mg PO BID [facility] Fish Oil (Fish Oil) 2,000 mg PO DAILY [facility] Heparin Sodium (Porcine) (Heparin) 5,000 unit SQ Q12 ANNIKA Hydromorphone HCl (Dilaudid) 0.25 - 0.5 mg IV Q4-6HP PRN PRN Reason: PAIN LEVEL > 6 Potassium Chloride 40 meq/ (Dextrose) 520 mls @ 130 mls/hr IV UD PRN PRN Reason: K+ = or < 3.5 Magnesium Sulfate (Magnesium Sulfate) 2 gm in 50 mls @ 50 mls/hr IV UD PRN PRN Reason: MG = or < 1.7 Acetaminophen (Ofirmev) 1,000 mg in 100 mls @ 200 mls/hr IV Q6HP PRN PRN Reason: PAIN/FEVER > 101 Insulin Glargine (Lantus) 45 unit SQ BID [facility] Insulin Human Lispro (Humalog) 0 unit SQ ACHS [facility]; Protocol Last Admin: 11/28/17 12:38 Dose: 18 unit Insulin Human Regular (Humulin R) 10 unit IV Q1 PRN; Protocol PRN Reason: Blood Sugar - High Iron Carb/Multivit/Pima/Folic Acid (Multivitamin W/Minerals) 1 tab PO DAILY [facility] Lisinopril (Zestril) 10 mg PO DAILY [facility] Mirtazapine (Remeron) 30 mg PO HS [facility] Ondansetron HCl (Zofran) 4 mg IV Q4-6HP PRN PRN Reason: Nausea And Vomiting Pantoprazole Sodium (Protonix) 40 mg PO QAMAC [facility] Potassium Chloride (Klor-Con) 40 meq PO DAILYP PRN PRN Reason: K+ < 3.5 Pregabalin (Lyrica) 200 mg PO BID [facility] Senna/Docusate Sodium (Senna Plus Tablet) 1 tab PO HS [facility] Sertraline HCl (Zoloft) 50 mg PO DAILY [facility] Sodium Chloride (Saline Flush) 10 ml IV Q8 [facility] Last Admin: 11/28/17 14:29 Dose: 10 ml Tizanidine HCl (Zanaflex) 8 mg PO TID [facility] Last Admin: 11/28/17 14:36 Dose: 8 mg Trazodone HCl (Desyrel) 150 - 300 mg PO HS [facility] Varenicline (Chantix) 1 mg PO BID [facility] Medical - PN: A/P - Time Spent With Patient Total time spent is greater than 50% in coordination of care (as documented) at patient's floor/unit and/or counseling patient: - Narrative A/P Narrative: A/P DKA-resolved, off insulin drip since AM, pt glucose still high after eating, will titrate insulin for now Abdomoina pain- erosive esophagitis, on ppi, symptoms better today neuropathy- on lyrica h/o COPD- no wheezing on exam, resume home meds, prn bronchodilators CAD- on plavix hld on statin Anxiety- on sertraline and trazodone. DVT hep sq Full code Medical - PN: Qual - VTE Deep Vein Thrombosis/Pulmonary Embolism Present on Admission: No
[2017-11-28] MEDS ORDERED: traZODone HCL 150 MG TABLET PO SCH ×2 (21:00)
[2017-11-28] MEDS ORDERED: SENNOSIDES/DOCUSATE SODIUM 1 TAB TABLET PO SCH (21:00)
[2017-11-28] MEDS ORDERED: ATORVASTATIN 20 MG TABLET PO SCH (21:00)
[2017-11-28] MEDS ORDERED: MIRTAZAPINE 15 MG TABLET PO SCH (21:00)
[2017-11-28] MEDS: INSULIN GLARGINE, HUMAN 1 UNIT/0.01 ML SQ SCH (21:20)
[2017-11-28] MEDS: VARENICLINE TARTRATE 1 MG TABLET PO SCH (21:39)
[2017-11-29] MEDS: 0.9 % SODIUM CHLORIDE 10 ML SYRINGE IV SCH ×2 (05:56→14:49)
[2017-11-29] MEDS ORDERED: PANTOPRAZOLE 40 MG TABLET PO SCH (07:30)
[2017-11-29] MEDS: HEPARIN 5,000 UNIT/ML VIAL SQ SCH (08:16)
[2017-11-29] MEDS: INSULIN LISPRO 1 UNIT/0.01 ML UNIT SQ SCH ×3 (08:17→16:44)
[2017-11-29] MEDS: INSULIN GLARGINE, HUMAN 1 UNIT/0.01 ML SQ SCH (08:17)
[2017-11-29] MEDS: PREGABALIN 100 MG CAPSULE PO SCH (08:19)
[2017-11-29] MEDS: DOCUSATE SODIUM 100 MG CAPSULE PO SCH (08:19)
[2017-11-29] MEDS: tiZANidine 4 MG TABLET PO SCH ×2 (08:19→14:49)
[2017-11-29] MEDS ORDERED: FISH OIL 1,000 MG CAPSULE PO SCH (09:00)
[2017-11-29] MEDS ORDERED: LISINOPRIL 10 MG TABLET PO SCH (09:00)
[2017-11-29] MEDS ORDERED: CLOPIDOGREL 75 MG TABLET PO SCH (09:00)
[2017-11-29] MEDS ORDERED: SERTRALINE 50 MG TABLET PO SCH (09:00)
[2017-11-29] MEDS ORDERED: MULTIVIT,THER IRON,CA,FA & MIN 1 TABLET PO SCH (09:00)
[2017-11-29] MEDS: VARENICLINE TARTRATE 1 MG TABLET PO SCH (10:47)
[2017-11-29] MEDS: HYDROcodone/APAP 5/325MG TABLET PO PRN (11:41)
[2017-11-29 13:18] LABS: Appearance,Urine HAZY; Bacteria,Urine 0 /hpf (0); Bilirubin,Urine NEG (NEG); Color,Urine YELLOW; Glucose,Urine (UA) >=500 mg/dL (NEG); Leukocyte Esterase,Urine 25 /uL (NEG); Mucus,Urine FEW /hpf (0); Protein,Urine NEG (NEG); Specific Gravity,Urine 1.025 (1.000-1.035); Urine Blood NEG mg/dL (<0.03); Urine RBC 3 /hpf (0-1); Urine Squamous Epithelial Cell 1 /hpf (0-4); Urine WBC 4 /hpf (0-4); Urobilinogen,Urine NEG (NEG)
[2017-11-29 14:11] LABS: Basophils # (Auto) 0 K/mcL (0.0-0.3); Basophils % (Auto) 0.6 % (0.0-2.0); Eosinophils # (Auto) 0.2 K/mcL (0.0-0.7); Eosinophils % (Auto) 2.6 % (0.0-7.0); Granulocytes % (Auto) 51.4 % (38.0-78.0); Lymphocytes # (Auto) 2.7 K/mcL (1.5-4.8); Lymphocytes % (Auto) 40.2 % (15.5-49.0); Mean Cell Volume 79.7 fL (80.0-100.0); Mean Corpuscular HGB Conc 33.6 g/dL (31.0-36.0); Mean Corpuscular Hemoglobin 26.8 pg (26.0-34.0); Monocytes # (Auto) 0.4 K/mcL (0.1-0.9); Monocytes % (Auto) 5.2 % (1.0-12.0); Platelet Count 196 K/mcL (140-440); RBC 4.67 M/mcL (4.50-5.90); Red Cell Distribution Width 16.4 % (11.5-14.5)
[2017-11-29 14:31] LABS: Blood Urea Nitrogen 15 mg/dl (6-20)
--- NOTE | 2017-11-29 16:20 | Discharge Summary ---
Medical - DS: Prov Patient information: Note initiated : 11/29/17 at 4:17 pm Service Date, if different from initiated Date: [] Patient: Jordi Nice 57 y/o M admitted on 11/27/17 for Diabetic Ketoacidosis. Chief Complaint: [] Date of admission: 11/27/17 19:56 Discharge date: 11/29/17 Primary care physician: Jennifer Hernandez Admitting clinician: Art Rosa Consults: 11/27/17 18:16 Consult to Physician [CONS] Stat Comment: Consulting Provider: Art Rosa Reason For Exam: Physician to Consult Discharging clinician: Krupa Tavares Medical - DS: Meds - Discharge Medications Prescriptions: Doxycycline Hyclate [Morgidox] 100 mg PO BID #14 cap Active and Home Medications: Home Medications Clopidogrel [Plavix] 75 mg PO DAILY 09/28/17 [History Confirmed 11/29/17 Last Taken Unknown] Lisinopril [Zestril] 5 mg PO DAILY 09/28/17 [History Confirmed 11/29/17 Last Taken Unknown] Mirtazapine [Remeron] 30 mg PO DAILY 09/28/17 [History Confirmed 11/29/17 Last Taken Unknown] Pantoprazole Sodium [Protonix] 20 mg PO QAMAC 09/28/17 [History Confirmed Last Taken Unknown] Pregabalin [Lyrica] 200 mg PO BID 09/28/17 [History Confirmed 11/29/17 Last Taken Unknown] Sertraline HCl [Zoloft] 50 mg PO DAILY 09/28/17 [History Confirmed 11/29/17 Last Taken Unknown] tiZANidine HCL [Zanaflex] 8 mg PO TID 09/28/17 [History Confirmed 11/29/17 Last Taken Unknown] traZODone HCL [Desyrel] 150 - 300 mg PO HS 09/28/17 [History Confirmed 11/29/17 Last Taken Unknown] Varenicline Tartrate [Chantix] 1 mg PO BID 11/27/17 [History Confirmed 11/29/17 Last Taken Unknown] Insulin Glargine, Human [Lantus] 45 unit SQ BID 11/28/17 [History Confirmed Last Taken Unknown] Albuterol Sulfate [Ventolin] 1 - 2 puff INH Q4HP PRN 11/29/17 [History Confirmed 11/29/17 Last Taken Unknown] Amitriptyline [Elavil] 10 mg PO HS 11/29/17 [History Confirmed 11/29/17 Last Taken Unknown] Atorvastatin [Lipitor] 40 mg PO HS 11/29/17 [History Confirmed 11/29/17 Last Taken Unknown] Dorzolamide HCl/Timolol Maleat [Dorzolamide-Timolol Eye Drops] 1 drop OU BID [History Confirmed 11/29/17 Last Taken Unknown] Fluticasone Hfa 110Mcg [Flovent Hfa 110Mcg] 1 puff INH BID 11/29/17 [History Confirmed 11/29/17 Last Taken Unknown] Insulin Aspart [Novolog] 20 unit SQ TIDAC 11/29/17 [History Confirmed 11/29/17 Last Taken Unknown] Latanoprost Ophth Drops [Xalatan Ophth Drops] 1 gtt OU HS 11/29/17 [History Confirmed 11/29/17 Last Taken Unknown] Meloxicam [Mobic] 7.5 mg PO DAILY 11/29/17 [History Confirmed 11/29/17 Last Taken Unknown] Umeclidinium [place] [Incruse Ellipta] 62.5 mcg IH DAILY 11/29/17 [History Confirmed 11/29/17 Last Taken Unknown] carBAMazepine [TEGretol] 100 mg PO BID 11/29/17 [History Confirmed 11/29/17 Last Taken Unknown] Medical - DS: Hosp Hospital course: Mr. Nice is a 57 year old M with history of insulin-dependent diabetes. Patient apparently stopped taking insulin roughly 10-12 days ago after he had a breakup with his girlfriend. He also has been complaining of abdominal pain along with nausea. \ He presented to the ER with initial workup revealing blood sugars over 600. Elevated anion gap at 18. CT abdomen revealed esophagitis without evidence of pancreatitis. After initial crystalloids and insulin drip hospitalist service was consulted in light of DKA Patient admitted to the hospital for DKA, treated per protocol, Insulin GGT, gap closed overnight, his glucose has been difficult to control. He is usually in the 200-350 range as per him. The etiology of DKA appears to be non compliance with insulin. Although he had no urinay complaints his urine cx is positive for mrsa, no fever, no leucocytosis, intially thought to be a contaminant, but repeat ua also had some leuk esterase positive. Will give doxycycline for 7 days. The patient dose of lantus has been increased from 45 units to 55 units, he takes novolog 20-20-30. Which remains unchanged Educated extensively need for compliance with same. Rest of the stay in the hospital uneventful, it seems he has makde up with his partner. Patient will be discharged home with PCP follow up Discharge diagnosis: DKA - Time Spent with Patient Total time spent providing and/or coordinating discharge services: Greater than 30 minutes Medical - DS: Exam - Constitutional Vitals: Vital Signs Temp Pulse Resp BP Pulse Ox 11/29/17 14:52 98.9 F 16 119/80 98 11/29/17 11:57 98.7 F 18 85/54 94 11/29/17 09:58 98 F 18 93/58 96 11/29/17 06:55 97.8 F 16 112/62 91 11/29/17 04:00 97.3 F 60 16 116/70 92 11/29/17 02:48 58 L 103/67 11/29/17 01:59 16 11/29/17 01:04 16 11/29/17 00:23 60 104/64 11/28/17 23:30 98.0 F 60 12 99/63 93 11/28/17 22:55 61 110/70 11/28/17 22:36 63 16 94/58 96 11/28/17 22:20 98.8 F 60 16 87/51 93 11/28/17 21:25 67 20 107/66 93 11/28/17 20:30 67 112/63 11/28/17 20:17 97.7 F 72 16 106/66 97 Intake and Output 11/29/17 11/29/17 11/29/17 05:59 13:59 21:59 Intake Total 360 / 360 620 / 620 Output Total 1400 / 1400 550 / 550 Balance 360 / 360 -1400 / -1400 70 / 70 Intake: Oral 360 / 360 620 / 620 Output: Void Amount 1400 / 1400 550 / 550 Additional comments: Constitutional; Afebrile, cooperative, alert, not in distress. Eyes- No icterus, , No periorbital swelling Ears- Ext ear normal, hearing normal to conversation. Neck- Midline trachea, supple Respiratory system: Air Entry equal on both sides, No crackles or wheezing, no rhonchi. CVS- Rate rhythm regular, S1,S2 heard, no gallop, no rub. 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 Medical - DS: Data Labs on day of discharge: Labs from last 24 hours 11/29/17 11/29/17 11/29/17 13:36 13:36 12:46 WBC 6.8 RBC 4.67 Hgb 12.5 L Hct 37.2 L MCV 79.7 L MCH 26.8 MCHC 33.6 RDW 16.4 H Plt Count 196 MPV 10.5 H Gran % 51.4 Lymph % (Auto) 40.2 Martin % (Auto) 5.2 Eos % (Auto) 2.6 Baso % (Auto) 0.6 Gran # 3.5 Lymph # (Auto) 2.7 Martin # (Auto) 0.4 Eos # (Auto) 0.2 Baso # (Auto) 0 Sodium 132 L Potassium 4.1 Chloride 95 L Carbon Dioxide 24 Anion Gap 13.0 BUN 15 Creatinine 0.9 GFR Calculation 94 Glucose 364 H Calcium 9.8 Urine Color Yellow Urine Appearance Hazy Urine pH 5.0 Ur Specific [place] 1.025 Urine Protein Neg Urine Glucose (UA) >=500 A Urine Ketones Neg Urine Occult Blood Neg Urine Nitrate Neg Urine Bilirubin Neg Urine Urobilinogen Neg Ur Leukocyte Esterase 25 A Urine RBC 3 H Urine WBC 4 Ur Squamous Epith Cells 1 Urine Bacteria 0 Urine Mucus Few Medical - DS: A/P - Patient/Caregiver Discharge Instructions Activity: increase activity as tolerated Diet: Cardiac, Consistent Carbohydrate Additional Instructions: Fax Discharge Summary to [facility] Follow up PCP in 1 week Take doxycycline 100mg twice dailiy for 7 days with food Take lantus 55units twice daily instead of 45 units. Take other insulin as before Your PCP will adjust your insulin further as needed. Please do not forget to take your insulin. Go to the ER if worsening symptoms, chest pain, fever, shortness of breath or any other acute concerns. - Follow up Plan Follow up with: Jennifer Hernandez ARNP [Primary Care Provider] - 12/11/17 12:40 pm (Continue with your previously scheuled appointment.) Disposition: Home, Self-Care Prognosis: Fair Rehab Potential: Fair I certify that the patient requires SNF services: No Overall status at discharge: patient is progressing back to baseline Medical - DS: Qual - VTE Deep Vein Thrombosis/Pulmonary Embolism Present on Admission: No
== END 2017-11-29 17:17 | disposition home or self-care (01) ==
LOC: SUPCPDRO → ED 15:46 → INTOOBSV 19:56 → ICU 19:56 → MEDSUR 11-28 15:37
PROVIDERS: ADMIT Internal Medicine; ATTEND Internal Medicine

== ENCOUNTER 2018-04-14 10:47 | Inpatient (IN) ==
[2018-04-14] MEDS ORDERED: 0.9 % SODIUM CHLORIDE 1,000 ML IV ONE ×2 (11:01→12:35)
--- NOTE | 2018-04-14 11:17 | Emergency Department Note ---
General Adult HPI - General Chief complaint: Blood Sugar Problem Stated complaint: Elevated Blood Sugar Time Seen by Provider: 04/14/18 10:58 Source: patient, EMS Mode of arrival: EMS Limitations: no limitations - History of Present Illness HPI Narrative: 57-year-old type II diabetic is brought to the emergency Department today by EMS. The patient states that he has not taken his insulin for the last 2 weeks. He reports nausea and vomiting that began about 2 weeks ago, and when he would check his blood glucose level at home the meter would read high. He denies chest pain, shortness of breath, or difficulty breathing. He denies any recent changes with his medications. He reports polydipsia, polyuria, and weakness. - Related Data Home Medications Medication Instructions Recorded Confirmed Clopidogrel [Plavix] 75 mg PO DAILY 09/28/17 11/29/17 Lisinopril [Zestril] 5 mg PO DAILY 09/28/17 11/29/17 Mirtazapine [Remeron] 30 mg PO DAILY 09/28/17 11/29/17 Pantoprazole Sodium [Protonix] 20 mg PO QAMAC 09/28/17 11/29/17 Pregabalin [Lyrica] 200 mg PO BID 09/28/17 11/29/17 Sertraline HCl [Zoloft] 50 mg PO DAILY 09/28/17 11/29/17 tiZANidine HCL [Zanaflex] 8 mg PO TID 09/28/17 11/29/17 traZODone HCL [Desyrel] 150 - 300 mg PO HS 09/28/17 11/29/17 Varenicline Tartrate [Chantix] 1 mg PO BID 11/27/17 11/29/17 Albuterol Sulfate [Ventolin] 1 - 2 puff INH Q4HP PRN 11/29/17 11/29/17 Amitriptyline [Elavil] 10 mg PO HS 11/29/17 11/29/17 Atorvastatin [Lipitor] 40 mg PO HS 11/29/17 11/29/17 Dorzolamide HCl/Timolol Maleat 1 drop OU BID 11/29/17 11/29/17 [Dorzolamide-Timolol Eye Drops] Fluticasone Hfa 110Mcg [Flovent 1 puff INH BID 11/29/17 11/29/17 Hfa 110Mcg] Insulin Aspart [Novolog] 20 unit SQ TIDAC 11/29/17 11/29/17 Latanoprost Ophth Drops [Xalatan 1 gtt OU HS 11/29/17 11/29/17 Ophth Drops] Meloxicam [Mobic] 7.5 mg PO DAILY 11/29/17 11/29/17 Umeclidinium [place] [Incruse 62.5 mcg IH DAILY 11/29/17 11/29/17 Ellipta] carBAMazepine [TEGretol] 100 mg PO BID 11/29/17 11/29/17 Previous Rx's Medication Instructions Recorded Doxycycline Hyclate [Morgidox] 100 mg PO BID #14 cap 11/29/17 Insulin Glargine, Human [Lantus] 55 unit SQ BID unit 11/29/17 Allergies Allergy/AdvReac Type Severity Reaction Status Date / Time No Known Drug Allergies Allergy Verified 12/27/17 15:22 Review of Systems Constitutional: Denies: fever, chills Cardiovascular: Denies: chest pain, palpitations Respiratory: Denies: cough, shortness of breath Gastrointestinal: Reports: as per HPI Genitourinary: Reports: frequency. Denies: dysuria, urgency, hematuria, discharge Musculoskeletal: Denies: back pain, joint swelling Integumentary: Denies: rash, lesions Neurological: Reports: weakness. Denies: headache, numbness, paresthesias, confusion Psychiatric: Denies: anxiety, depression Endocrine: Reports: as per HPI, polydipsia, polyuria Hematological/Lymphatic: Denies: easy bleeding, easy bruising Past Medical History - Past Medical History Medical history: Reports: arthritis, cancer, COPD, coronary artery disease, DM, GERD, hyperlipidemia, hypertension, kidney stones, liver disease, myocardial infarction, renal disease, seizures, other Psychiatric history: Reports: anxiety, depression Surgical history ED: Reports: cataract, cholecystectomy, orthopedic, other - Social History smoking status: Current every day smoker Alcohol use: Reports: Rarely Drug use: Reports: none Physical Exam Limitations: no limitations General appearance: alert, in no apparent distress Head: atraumatic, normocephalic Eye: Present: normal appearance, PERRL, EOMI. Absent: scleral icterus, conjunctival injection ENT: normal oropharynx, mucous membranes moist Neck: Present: normal inspection, full ROM. Absent: lymphadenopathy Chest: Present: normal inspection, symmetric chest wall rise Respiratory: Present: normal lung sounds bilaterally. Absent: respiratory distress, wheezes, stridor, accessory muscle use, prolonged expiratory phase Cardiovascular: Present: regular rate, normal rhythm, +S1, +S2 Abdominal: Present: soft, normal bowel sounds. Absent: distention, tenderness, guarding, rebound, rigidity Extremities: Present: normal inspection, full ROM, normal capillary refill. Absent: tenderness, pretibial edema Neurological: Present: alert, oriented X3 Psychiatric: Present: normal affect, normal mood Skin: Present: warm, dry, intact, normal color Course - Reevaluation(s) Time: 13:43 (Spoke with Dr. Tavares who will accept the patient for admission. Chest x-ray ordered.) Vital Signs Temperature 98.3 F 04/14/18 10:48 Pulse Rate 103 H 04/14/18 10:48 Respiratory Rate 18 04/14/18 10:48 Blood Pressure 109/82 04/14/18 10:48 Pulse Oximetry (%) 100 04/14/18 10:48 Temperature 98.3 F 04/14/18 10:48 Pulse Rate 87 04/14/18 12:31 Respiratory Rate 21 04/14/18 12:35 Blood Pressure 132/83 04/14/18 12:31 Pulse Oximetry (%) 91 04/14/18 12:31 Medical Decision Making - [facility] Narrative Medical decision making narrative: Patient's blood glucose today was 750, and he was given 10 units of regular insulin IV as well as 2 L of normal saline. Patient was started on IV insulin infusion protocol. Around 1300 the blood glucose was 546. The ABG today shows the pH is 7.36 and the HCO3 at 22.6. There is slight elevation on the beta hydroxybutyrate at 1.65. The sodium was 117. Spoke with Dr. Tavares who will accept the patient for admission, and the hyponatremia is likely from the result of the hyperglycemia. The patient was ordered a chest x-ray and will be admitted. - Lab Data Result diagrams: 04/14/18 11:12 04/14/18 11:12 Lab Results 04/14/18 04/14/18 04/14/18 Range/Units 11:12 11:12 11:12 WBC 5.7 (4.5-11.0) K/mcL RBC 4.56 (4.50-5.90) M/mcL Hgb TNP Hct 36.6 L (41.0-55.0) % POC Hct 39.0 L (41.0-55.0) % MCV 80.3 (80.0-100.0) fL MCH TNP MCHC TNP RDW 14.4 (11.5-14.5) % Plt Count 177 (140-440) K/mcL MPV 12.8 H (7.4-10.4) fL POC Sodium 124 L (133-145) mmol/L Sodium 117 L* (133-145) mmol/L POC Potassium 4.7 (3.3-5.1) mmol/L Potassium 4.6 (3.3-5.1) mmol/L POC Chloride 90 L (96-108) mmol/L Chloride 85 L (96-108) mmol/L Carbon Dioxide 21 L (22-30) mmol/L POC Total CO2 24 (22-30) mmol/L Anion Gap 11.0 (8-16) POC BUN 31 H (6-20) mg/dl BUN 25 H (6-20) mg/dl Creatinine 1.2 (0.7-1.2) mg/dl POC Creatinine 1.0 (0.7-1.2) mg/dl GFR Calculation 67 Glucose 750 H* (70-105) mg/dL POC Glucose > 700 H* (70-105) mg/dL Calcium 9.0 (8.6-10.4) mg/dl POC WB Ioniz Calcium 1.20 (1.16-1.32) mmol/L Total Bilirubin 0.4 (0.0-1.0) mg/dL AST < 5 (0-37) U/l ALT < 5 (0-40) U/l Alkaline Phosphatase 108 (39-117) U/L Total Protein 6.5 (5.9-8.4) gm/dL Albumin 3.4 (3.2-5.2) gm/dL Globulin 3.1 (2.2-3.7) gm/dL Albumin/Globulin Ratio 1.1 (1.0-2.3) Beta-Hydroxybutyrate 1.65 H (< 0.27) mmol/L Urine Color Urine Appearance Urine pH (5.0-9.0) Ur Specific [place] (1.000-1.035) Urine Protein (NEG) mg/dL Urine Glucose (UA) (NEG) mg/dL Urine Ketones (NEG) mg/dL Urine Occult Blood (<0.03) mg/dL Urine Nitrate (NEG) Urine Bilirubin (NEG) mg/dL Urine Urobilinogen (NEG) mg/dL Ur Leukocyte Esterase (NEG) /uL Urine RBC (0-1) /hpf Urine WBC (0-4) /hpf Ur Squamous Epith Cells (0-4) /hpf Urine Bacteria (0) /hpf Ur Culture Indicated? 04/14/18 Range/Units 12:38 WBC (4.5-11.0) K/mcL RBC (4.50-5.90) M/mcL Hgb Hct (41.0-55.0) % POC Hct (41.0-55.0) % MCV (80.0-100.0) fL MCH MCHC RDW (11.5-14.5) % Plt Count (140-440) K/mcL MPV (7.4-10.4) fL POC Sodium (133-145) mmol/L Sodium (133-145) mmol/L POC Potassium (3.3-5.1) mmol/L Potassium (3.3-5.1) mmol/L POC Chloride (96-108) mmol/L Chloride (96-108) mmol/L Carbon Dioxide (22-30) mmol/L POC Total CO2 (22-30) mmol/L Anion Gap (8-16) POC BUN (6-20) mg/dl BUN (6-20) mg/dl Creatinine (0.7-1.2) mg/dl POC Creatinine (0.7-1.2) mg/dl GFR Calculation Glucose (70-105) mg/dL POC Glucose (70-105) mg/dL Calcium (8.6-10.4) mg/dl POC WB Ioniz Calcium (1.16-1.32) mmol/L Total Bilirubin (0.0-1.0) mg/dL AST (0-37) U/l ALT (0-40) U/l Alkaline Phosphatase (39-117) U/L Total Protein (5.9-8.4) gm/dL Albumin (3.2-5.2) gm/dL Globulin (2.2-3.7) gm/dL Albumin/Globulin Ratio (1.0-2.3) Beta-Hydroxybutyrate (< 0.27) mmol/L Urine Color Straw Urine Appearance Clear Urine pH 6.0 (5.0-9.0) Ur Specific [place] 1.028 (1.000-1.035) Urine Protein Neg (NEG) mg/dL Urine Glucose (UA) >=500 A (NEG) mg/dL Urine Ketones 5/tr A (NEG) mg/dL Urine Occult Blood Neg (<0.03) mg/dL Urine Nitrate Neg (NEG) Urine Bilirubin Neg (NEG) mg/dL Urine Urobilinogen Neg (NEG) mg/dL Ur Leukocyte Esterase Neg (NEG) /uL Urine RBC 0 (0-1) /hpf Urine WBC < 1 (0-4) /hpf Ur Squamous Epith Cells 0 (0-4) /hpf Urine Bacteria 0 (0) /hpf Ur Culture Indicated? No Disposition Pt seen by [facility]/PA only: Yes Clinical Impression: Hyperglycemia, Uncontrolled type 2 diabetes mellitus, Hyponatremia Disposition: Xfer As Inpt ([facility]) Referrals: Jennifer Hernandez ARNP [Primary Care Provider] -
[2018-04-14] MEDS ORDERED: INSULIN REGULAR, HUMAN 1 UNIT/0.01 ML UNIT IV ONE (11:38)
[2018-04-14] MEDS ORDERED: INSULIN REGULAR, HUMAN 50 UNIT in 0.9 % SODIUM CHLORIDE 99.5 ML IV ONE (11:45)
[2018-04-14 12:40] LABS: ALT/SGPT < 5 U/l (0-40); Albumin 3.4 gm/dL (3.2-5.2); Albumin/Globulin Ratio 1.1 (1.0-2.3); Alkaline Phosphatase 108 U/L (39-117); Beta Hydroxybutyrate 1.65 mmol/L (< 0.27); Blood Urea Nitrogen 25 mg/dl (6-20)
[2018-04-14 13:09] LABS: Appearance,Urine CLEAR; Bacteria,Urine 0 /hpf (0); Bilirubin,Urine NEG (NEG); Color,Urine STRAW; Glucose,Urine (UA) >=500 mg/dL (NEG); Leukocyte Esterase,Urine NEG /uL (NEG); Protein,Urine NEG (NEG); Specific Gravity,Urine 1.028 (1.000-1.035); Urine Blood NEG mg/dL (<0.03); Urine RBC 0 /hpf (0-1); Urine Squamous Epithelial Cell 0 /hpf (0-4); Urine WBC < 1 /hpf (0-4); Urobilinogen,Urine NEG (NEG)
[2018-04-14 13:33] LABS: Mean Cell Volume 80.3 fL (80.0-100.0); Platelet Count 177 K/mcL (140-440); RBC 4.56 M/mcL (4.50-5.90); Red Cell Distribution Width 14.4 % (11.5-14.5)
--- NOTE | 2018-04-14 14:07 | XRay Report ---
CLINICAL INFORMATION: hyperglycemia COMPARISON: 11/16/2017 FINDINGS: The heart size, mediastinum and pulmonary vessels are unremarkable. The lungs are clear. There are no effusions. The bones and soft tissues are within normal limits. IMPRESSION: Normal chest. Interpreted and Authenticated by: Zeus Lindsay 04/14/18
--- NOTE | 2018-04-14 14:16 | Internal Med History&Physical ---
Medical - H&P: HPI Patient information: Note initiated : 04/14/18 at 2:13 pm Service Date, if different from initiated Date: [] Patient: Jordi Nice a 57 y/o M admitted on for Elevated Blood Sugar. Chief Complaint: [] History of present illness: Mr. Nice is a 57 year old M with h/o Type 2 DM on insulin , h/o non compliance presents to the emergency room for evaluation of hyperglycemia. The patient notes that for nearly a month he has not taken his insulin. According to the ED provider it has been approximately 2 weeks. The patient has no good explanation to why he stopped taking his insulin. The ED provider noted that the patient stopped taking insulin because it is difficult to take insulin during work?. The patient notes that for the last few days he is having blurry vision lower abdominal pain, otherwise has no acute complaints or concerns. He is also having some polyuria. The in the emergency room was hemodynamically stable, afebrile heart rate 83 blood pressure 109/82 saturating 94% on room air. WBC count normal at 5.7 hematocrit 36 platelets 177 Sodium 117, potassium 4.6 bicarbonate 21 chloride 85 BUN 25 creatinine 1.2 glucose 750. Anion gap was 11 albumin 3.4. Beta hydroxybutyrate elevated at 1.65. Urine analysis negative for UTI but ketones are positive and glucosuria present EKG shows sinus tachycardia chest x-ray on my interpretation is negative for an acute infection ABG shows pH is 7.36 PCO2 40 PO2 66 Given severe hyperglycemia elevated beta hydroxybutyrate patient's being admitted to the hospital with a diagnosis of DKA and hyperosmolar state Patient reports that he is compliant with his other oral medications just has not been taking insulin. All systems: reviewed and no additional remarkable complaints except as stated ( as per HPI rest neg) Medical - H&P: PMH Medical history: Medical History Fibromyalgia (Chronic) Diabetic cheirarthropathy (Chronic) Encounter for long-term (current) use of high-risk medication (Chronic) Raynaud phenomenon (Acute) Connective tissue disease (Suspected) Buerger's disease (Chronic) BPH (benign prostatic hyperplasia) (Chronic) CAD (coronary artery disease) (Chronic) Colitis, ulcerative (Chronic) Diastasis of muscle (Chronic) Hyperglyceridemia (Chronic) Low back pain (Chronic) Obesity (Chronic) Raynauds syndrome (Chronic) Seizures (Chronic) Sexual dysfunction (Chronic) AUGUSTUS positive (Acute) Diabetes mellitus (Chronic) Diabetic renal disease (Chronic) Diabetic neuropathy (Chronic) Depressive disorder (Chronic) Tobacco dependence syndrome (Chronic) Insomnia (Chronic) Obstructive sleep apnea of adult (Chronic) Chronic pain (Chronic 11/26/12) Epilepsy (Chronic 11/26/12) Glaucoma (Chronic) Hypertensive retinopathy (Chronic) Cataract (Chronic) Essential hypertension (Chronic) Chronic obstructive lung disease (Chronic) Coronary atherosclerosis (Chronic) GERD (gastroesophageal reflux disease) (Chronic) Multiple joint pain (Chronic) Lumbar radiculopathy (Chronic) Chronic back pain (Chronic) Degenerative, intervertebral disc (Chronic) Hypoxia (Chronic) 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) Surgical history: Past Surgical History History of bilateral cataract extraction (Chronic) History of cholecystectomy (Chronic) History of elbow surgery (Chronic) History of foot surgery (Chronic) History of left knee surgery (Chronic) Family history: reviewed and not pertinent Pertinent family history: Family History Mother Malignant tumor of pancreas Father Myocardial infarction Medical - H&P: Meds Home Medications Medication Instructions Recorded Confirmed Type Clopidogrel [Plavix] 75 mg PO DAILY 09/28/17 11/29/17 History Lisinopril [Zestril] 5 mg PO DAILY 09/28/17 11/29/17 History Mirtazapine [Remeron] 30 mg PO DAILY 09/28/17 11/29/17 History Pantoprazole Sodium [Protonix] 20 mg PO QAMAC 09/28/17 11/29/17 History Pregabalin [Lyrica] 200 mg PO BID 09/28/17 11/29/17 History Sertraline HCl [Zoloft] 50 mg PO DAILY 09/28/17 11/29/17 History tiZANidine HCL [Zanaflex] 8 mg PO TID 09/28/17 11/29/17 History traZODone HCL [Desyrel] 150 - 300 mg PO HS 09/28/17 11/29/17 History Varenicline Tartrate [Chantix] 1 mg PO BID 11/27/17 11/29/17 History Albuterol Sulfate [Ventolin] 1 - 2 puff INH Q4HP PRN 11/29/17 11/29/17 History Amitriptyline [Elavil] 10 mg PO HS 11/29/17 11/29/17 History Atorvastatin [Lipitor] 40 mg PO HS 11/29/17 11/29/17 History Dorzolamide HCl/Timolol Maleat 1 drop OU BID 11/29/17 11/29/17 History [Dorzolamide-Timolol Eye Drops] Doxycycline Hyclate [Morgidox] 100 mg PO BID #14 cap 11/29/17 Rx Fluticasone Hfa 110Mcg [Flovent 1 puff INH BID 11/29/17 11/29/17 History Hfa 110Mcg] Insulin Aspart [Novolog] 20 unit SQ TIDAC 11/29/17 11/29/17 History Insulin Glargine, Human [Lantus] 55 unit SQ BID unit 11/29/17 Rx Latanoprost Ophth Drops [Xalatan 1 gtt OU HS 11/29/17 11/29/17 History Ophth Drops] Meloxicam [Mobic] 7.5 mg PO DAILY 11/29/17 11/29/17 History Umeclidinium [place] [Incruse 62.5 mcg IH DAILY 11/29/17 11/29/17 History Ellipta] carBAMazepine [TEGretol] 100 mg PO BID 11/29/17 11/29/17 History Allergies Allergy/AdvReac Type Severity Reaction Status Date / Time No Known Drug Allergies Allergy Verified 12/27/17 15:22 Medical - H&P: Exam - Constitutional Vitals: Temp Pulse Resp BP Pulse Ox 98.3 F 78 17 106/81 95 04/14/18 10:48 04/14/18 14:09 04/14/18 14:09 04/14/18 13:46 04/14/18 14:09 Exam: GENERAL: The patient is a well-developed, well-nourished in no apparent distress. Is alert and oriented x3. VITAL SIGNS: Reviewed and as noted elsewhere. HEENT: Head is normocephalic and atraumatic. Extraocular muscles are intact. Pupils are equal, round, and reactive to light. Nares appeared normal. Mouth appears any without lesions. Mucous membranes are dry NECK: Normal to inspection, Supple, No lymphadenopathy or thyromegaly. LUNGS: Air entry equal on both sides, no wheezing, crackles or rhonchi noted. No accessory muscles of respiration HEART: Regular rate and rhythm normal, S1 and S2 heard, no Gallop, S3 or Rub Noted, No Gross murmur heard. ABDOMEN: Soft, nontender, and nondistended. Positive bowel sounds. No hepatosplenomegaly was noted. EXTREMITIES: No cyanosis, clubbing, rash, lesions or edema. NEUROLOGIC: Cranial nerves II through XII are grossly intact. Motor and Sensory System Grossly Intact PSYCHIATRIC: Normal affect, Normal Mood. Appropriate Behavior. SKIN: No ulceration or wounds noted, No jaundice, No rash noted. Medical - H&P: Reslt - Labs CBC & Chem 7: 04/14/18 11:12 04/14/18 11:12 Labs: Short CBC 04/14/18 Range/Units 11:12 WBC 5.7 (4.5-11.0) K/mcL Hgb TNP Hct 36.6 L (41.0-55.0) % Plt Count 177 (140-440) K/mcL BMP 04/14/18 11:12 Sodium 117 L* Potassium 4.6 Chloride 85 L Carbon Dioxide 21 L BUN 25 H Creatinine 1.2 Glucose 750 H* Calcium 9.0 Liver Function 04/14/18 Range/Units 11:12 Total Bilirubin 0.4 (0.0-1.0) mg/dL AST < 5 (0-37) U/l ALT < 5 (0-40) U/l Alkaline Phosphatase 108 (39-117) U/L Albumin 3.4 (3.2-5.2) gm/dL Urine 04/14/18 Range/Units 12:38 Urine Color Straw Urine Appearance Clear Urine pH 6.0 (5.0-9.0) Ur Specific [place] 1.028 (1.000-1.035) Urine Protein Neg (NEG) mg/dL Urine Glucose (UA) >=500 A (NEG) mg/dL Medical - H&P: A/P - Narrative A/P Narrative: A/P DKA-HHS- Manage with IV insulin drip,. IV fluids, no e/o infection, pt has h/o non compliance and previous admission was for a similar reason. Hyponatremia- Psuedohyponatremia, due to elevated glucose, will correct by self Dehydration- clinically dry due to being in DKA/ IV fluids, HTN/HLD- Resume home meds once verified CAD- stable no cp, resume antiplatet regime COPD- no wheezing on exam, prn bronchodilators if needed. Fibromyalgia/Raynauds disease- Resume home meds once verified. DVT hep sq Diet NPO Full code Social History - Social History education level: high school occupational status: unemployed sexually active: Yes - Tobacco smoking status: Current every day smoker - Alcohol alcohol intake frequency: does not drink - Substance use substance use type: does not use - Home Safety working smoke detector in home: Yes
[2018-04-14] MEDS ORDERED: NALOXONE HCL 0.4 MG/ML VIAL IV PRN (15:12)
[2018-04-14] MEDS ORDERED: ONDANSETRON 4 MG/2 ML VIAL IV PRN (15:12)
[2018-04-14] MEDS ORDERED: ACETAMINOPHEN 325 MG TABLET PO PRN (15:12)
--- NOTE | 2018-04-14 15:13 | Emergency Department Note ---
ED Note Addendum Note Addendum: Patient has hyperglycemia hyponatremia patient started on insulin drip positive ketones in the serum. Agree with diagnosis and treatment and need for admission Dr. Raphael has been contacted and patient to be admitted
[2018-04-14] MEDS ORDERED: DEXTROSE 50% 50 ML VIAL IV PRN (15:18)
[2018-04-14] MEDS: 0.9 % SODIUM CHLORIDE 1,000 ML IV SCH ×3 (15:30→20:20)
[2018-04-14] MEDS ORDERED: INSULIN REGULAR, HUMAN 50 UNIT in 0.9 % SODIUM CHLORIDE 99.5 ML IV SCH (16:00)
[2018-04-14 17:04] LABS: Amphetamine Screen,Urine NONE DETECTED (NONDETECTED); Benzodiazepines Screen,Urine NONE DETECTED (NONDETECTED); Cocaine Screen,Urine NONE DETECTED (NONDETECTED); Opiate Screen,Urine NONE DETECTED (NONDETECTED); Oxycodone, Urine Screen NONE DETECTED (NONDETECTED)
[2018-04-14] MEDS: oxyCODONE HCL 5 MG TABLET PO PRN (18:48)
[2018-04-14] MEDS: LORazepam 2 MG/ML VIAL IV PRN (19:03)
[2018-04-14 19:09] LABS: Beta Hydroxybutyrate 0.18 mmol/L (< 0.27)
[2018-04-14 19:51] LABS: ALT/SGPT < 5 U/l (0-40); Albumin 3.4 gm/dL (3.2-5.2); Albumin/Globulin Ratio 1.2 (1.0-2.3); Alkaline Phosphatase 95 U/L (39-117); Bilirubin,Direct < 0.2 mg/dL (0.0-0.3); Blood Urea Nitrogen 19 mg/dl (6-20); Gamma Glutamyl Transpeptidase 53 U/L (8-61); Uric Acid 4.3 mg/dL (2.5-8.0)
[2018-04-14] MEDS: HEPARIN 5,000 UNIT/ML VIAL SQ SCH (20:21)
[2018-04-14] MEDS: FAMOTIDINE/PF 20 MG/2 ML VIAL IV SCH (20:21)
[2018-04-14] MEDS ORDERED: INSULIN GLARGINE, HUMAN 1 UNIT/0.01 ML SQ ONE (20:46)
[2018-04-14] MEDS ORDERED: MAGNESIUM SULFATE 2 GM/50 ML BAG IV ONE (20:47)
[2018-04-14] MEDS: 0.9 % SODIUM CHLORIDE 10 ML SYRINGE IV SCH (22:04)
[2018-04-15] MEDS: 0.9 % SODIUM CHLORIDE 1,000 ML IV SCH ×2 (00:14→04:16)
[2018-04-15] MEDS: oxyCODONE HCL 5 MG TABLET PO PRN (00:20)
[2018-04-15] MEDS: LORazepam 2 MG/ML VIAL IV PRN (00:21)
[2018-04-15] MEDS ORDERED: DEXTROSE 50% 50 ML VIAL IV PRN (02:41)
[2018-04-15] MEDS ORDERED: DEXTROSE 31 GM ORAL.SUSP PO PRN (02:41)
[2018-04-15] MEDS: INSULIN LISPRO 1 UNIT/0.01 ML UNIT SQ SCH ×2 (02:53→07:48)
[2018-04-15] MEDS ORDERED: INSULIN LISPRO 1 UNIT/0.01 ML UNIT SQ ONE (03:01)
[2018-04-15] MEDS: 0.9 % SODIUM CHLORIDE 10 ML SYRINGE IV SCH (05:26)
[2018-04-15 06:06] LABS: Basophils # (Auto) 0 K/mcL (0.0-0.3); Basophils % (Auto) 0.5 % (0.0-2.0); Eosinophils # (Auto) 0.2 K/mcL (0.0-0.7); Granulocytes % (Auto) 49.7 % (38.0-78.0); Lymphocytes # (Auto) 2.2 K/mcL (1.5-4.8); Lymphocytes % (Auto) 42.8 % (15.5-49.0); Mean Cell Volume 80.5 fL (80.0-100.0); Monocytes # (Auto) 0.2 K/mcL (0.1-0.9); Platelet Count 129 K/mcL (140-440); RBC 3.88 M/mcL (4.50-5.90); Red Cell Distribution Width 14.9 % (11.5-14.5)
[2018-04-15 07:00] LABS: ALT/SGPT 14 U/l (0-40); Albumin 3.1 gm/dL (3.2-5.2); Albumin/Globulin Ratio 1.2 (1.0-2.3); Alkaline Phosphatase 81 U/L (39-117); Bilirubin,Direct < 0.2 mg/dL (0.0-0.3); Blood Urea Nitrogen 14 mg/dl (6-20); Gamma Glutamyl Transpeptidase 50 U/L (8-61)
[2018-04-15] MEDS: HEPARIN 5,000 UNIT/ML VIAL SQ SCH (07:48)
[2018-04-15] MEDS: FAMOTIDINE/PF 20 MG/2 ML VIAL IV SCH (07:48)
[2018-04-15] MEDS ORDERED: INSULIN GLARGINE, HUMAN 1 UNIT/0.01 ML SQ ONE (09:17)
--- NOTE | 2018-04-15 09:20 | Internal Med Progress Note ---
Medical - PN: Subj Patient information: Note initiated : 04/15/18 at 9:18 am Service Date, if different from initiated Date: [] Patient: Jordi Nice a 57 y/o M admitted on 04/14/18 for Elevated Blood Sugar. Chief Complaint: [] Interval history: Mr. Nice is a 57 year old M with h/o Type 2 DM on insulin , h/o non compliance presents to the emergency room for evaluation of hyperglycemia. The patient notes that for nearly a month he has not taken his insulin. According to the ED provider it has been approximately 2 weeks. The patient has no good explanation to why he stopped taking his insulin. The ED provider noted that the patient stopped taking insulin because it is difficult to take insulin during work?. The patient notes that for the last few days he is having blurry vision lower abdominal pain, otherwise has no acute complaints or concerns. He is also having some polyuria. The in the emergency room was hemodynamically stable, afebrile heart rate 83 blood pressure 109/82 saturating 94% on room air. WBC count normal at 5.7 hematocrit 36 platelets 177 Sodium 117, potassium 4.6 bicarbonate 21 chloride 85 BUN 25 creatinine 1.2 glucose 750. Anion gap was 11 albumin 3.4. Beta hydroxybutyrate elevated at 1.65. Urine analysis negative for UTI but ketones are positive and glucosuria present EKG shows sinus tachycardia chest x-ray on my interpretation is negative for an acute infection ABG shows pH is 7.36 PCO2 40 PO2 66 Given severe hyperglycemia elevated beta hydroxybutyrate patient's being admitted to the hospital with a diagnosis of DKA and hyperosmolar state Patient reports that he is compliant with his other oral medications just has not been taking insulin. The patient was treated with protocol, IV fluids and insulin drip, the hydroxybutyrate was better and glucose values improved, electrolytes stable The patient wishing to go home the next morning. feeling much better. He had a court appointment today, which will be cancelled as he was in the hospital. patient also has veery high TG values, edcuated need to be compliant on his cholesterol medications and the implications of very high TG, including pancreatitis, cardiovascular complications and , pt verbalized understanding. Patient advised to resume his home dose of insulin and start taking fish oil in addition to his statin and fibrate to help with this cholesterol issues. - Constitutional Vitals: Vital Signs Temp Pulse Resp BP Pulse Ox 98.8 F 60 11 L 137/85 98 04/15/18 07:01 04/15/18 07:02 04/15/18 07:02 04/15/18 07:01 04/15/18 07:02 Period Temp Pulse Resp BP Sys/[place] Pulse Ox Last 24 Hr 97.2 F-98.8 F 60-103 9-21 89-139/45-95 91-100 Intake and Output 04/14/18 04/15/18 04/15/18 21:59 05:59 13:59 Intake Total 1046 / 1046 2000 / 2000 Output Total 400 / 400 800 / 800 Balance 1046 / 1046 1600 / 1600 -800 / -800 Weight 215 lb 8 oz Intake & Output: Intake & Output 04/14/18 04/15/18 04/15/18 21:59 05:59 13:59 Intake Total 1046 / 1046 2000 / 2000 Output Total 400 / 400 800 / 800 Balance 1046 / 1046 1600 / 1600 -800 / -800 Weight 215 lb 8 oz Intake: IV 1046 / 1046 2000 / 2000 Sodium Chloride 0.9% 1,000 ml @ 1000 / 1000 2000 / 2000 250 mls/hr IV .Q4H ANNIKA Rx#: [id number] HumuLIN R 50 UNIT In Sodium 27 / 27 Chloride 0.9% 99.5 ml @ 9.7 UNIT/HR 19.4 mls/hr IV DUR ONE Rx#:[id number] Output: Void Amount 400 / 400 800 / 800 Other: Urine Appearance Clear Clear Urine Color Straw Straw Medical - PN: Obj Da - Labs CBC & Chem 7: 04/15/18 03:45 04/15/18 03:45 Labs: Abnormal Lab Results 04/15/18 04/15/18 04/14/18 03:45 03:45 18:20 RBC 3.88 L Hct 31.3 L POC Hct RDW 14.9 H Plt Count 129 L MPV 12.6 H POC Sodium Sodium 132 L POC Chloride Chloride Carbon Dioxide Anion Gap 7.0 L POC BUN BUN Glucose 258 H 251 H POC Glucose Calcium 7.8 L Phosphorus 2.0 L 2.6 L Total Protein 5.6 L Albumin 3.1 L Triglycerides 2424 H 2107 H Beta-Hydroxybutyrate Urine Glucose (UA) Urine Ketones 1204/14/18 04/14/18 12:38 11:12 11:12 RBC Hct POC Hct 39.0 L RDW Plt Count MPV POC Sodium 124 L Sodium 117 L* POC Chloride 90 L Chloride 85 L Carbon Dioxide 21 L Anion Gap POC BUN 31 H BUN 25 H Glucose 750 H* POC Glucose > 700 H* Calcium Phosphorus Total Protein Albumin Triglycerides Beta-Hydroxybutyrate 1.65 H Urine Glucose (UA) >=500 A Urine Ketones 5/tr A 04/14/18 11:12 RBC Hct 36.6 L POC Hct RDW Plt Count MPV 12.8 H POC Sodium Sodium POC Chloride Chloride Carbon Dioxide Anion Gap POC BUN BUN Glucose POC Glucose Calcium Phosphorus Total Protein Albumin Triglycerides Beta-Hydroxybutyrate Urine Glucose (UA) Urine Ketones Meds: Medications Acetaminophen (Tylenol) 650 mg PO Q4-6HP PRN PRN Reason: PAIN/FEVER > 101 Dextrose (Dextrose 50%) 25 ml IV UD PRN PRN Reason: Hypoglycemia Dextrose (Dextrose 50%) 0 ml IV UD PRN PRN Reason: Hypoglycemia Diagnostic Test (Pha) (Accu-Chek) 1 each FS [facility] Last Admin: 04/15/18 07:48 Dose: 1 each Famotidine (Pepcid) 20 mg IV Q12 [facility] Last Admin: 04/15/18 07:48 Dose: 20 mg Glucose (Insta-Glucose) 15 gm PO PRN PRN PRN Reason: Hypoglycemia Heparin Sodium (Porcine) (Heparin) 5,000 unit SQ Q12 [facility] Last Admin: 04/15/18 07:48 Dose: 5,000 unit Sodium Chloride (Sodium Chloride 0.9%) 1,000 mls @ 250 mls/hr IV .Q4H [facility] Stop: 04/15/18 11:11 Last Admin: 04/15/18 04:16 Dose: 250 mls/hr Insulin Glargine (Lantus) 70 unit SQ ONCE ONE Stop: 04/15/18 09:18 Insulin Human Lispro (Humalog) 0 unit SQ [facility]; Protocol Last Admin: 04/15/18 07:48 Dose: 8 units Lorazepam (Ativan) 0.5 mg IV Q2HP PRN PRN Reason: ANXIETY/SEDATION Last Admin: 04/15/18 00:21 Dose: 0.5 mg Naloxone HCl (Narcan) 0.1 mg IV Q2MIN PRN PRN Reason: Opiate Reversal Ondansetron HCl (Zofran) 4 mg IV Q4-6HP PRN PRN Reason: Nausea And Vomiting Last Admin: 04/14/18 19:03 Dose: 4 mg Oxycodone HCl (Roxicodone) 5 mg PO Q4HP PRN PRN Reason: pain not controlled by tylenol Last Admin: 04/15/18 00:20 Dose: 5 mg Sodium Chloride (Saline Flush) 10 ml IV Q8 ANNIKA Last Admin: 04/15/18 05:26 Dose: 10 ml Medical - PN: A/P - Time Spent With Patient Total time spent is greater than 50% in coordination of care (as documented) at patient's floor/unit and/or counseling patient: Medical - PN: Qual - VTE Deep Vein Thrombosis/Pulmonary Embolism Present on Admission: No
--- NOTE | 2018-04-15 09:24 | Discharge Summary ---
Medical - DS: Prov Patient information: Note initiated : 04/15/18 at 9:21 am Service Date, if different from initiated Date: [] Patient: Jordi Nice 57 y/o M admitted on 04/14/18 for Elevated Blood Sugar. Chief Complaint: [] Date of admission: 04/14/18 15:08 Discharge date: 04/15/18 Primary care physician: Jennifer Hernandez Consults: 04/14/18 Consult to Physician [CONS] Stat Comment: Consulting Provider: Krupa Tavares Reason For Exam: Physician to Consult Discharging clinician: Krupa Tavares Medical - DS: Meds - Discharge Medications Prescriptions: [place]-3 Fatty Acids [Fish Oil Concentrate] 1,000 mg PO TID #90 cap Active and Home Medications: Home Medications Clopidogrel [Plavix] 75 mg PO AC 09/28/17 [History Confirmed 04/14/18 Last Taken Unknown] Lisinopril [Zestril] 10 mg PO DAILY 09/28/17 [History Confirmed 04/14/18 Last Taken Unknown] Mirtazapine [Remeron] 30 mg PO AC 09/28/17 [History Confirmed 04/14/18 Last Taken Unknown] Pantoprazole Sodium [Protonix] 20 mg PO AC 09/28/17 [History Confirmed 04/14/18 Last Taken Unknown] Sertraline HCl [Zoloft] 50 mg PO AC 09/28/17 [History Confirmed 04/14/18 Last Taken Unknown] tiZANidine HCL [Zanaflex] 8 mg PO TID 09/28/17 [History Confirmed 04/14/18 Last Taken Unknown] traZODone HCL [Desyrel] 150 - 300 mg PO HS 09/28/17 [History Confirmed 04/14/18 Last Taken Unknown] Albuterol Sulfate [Ventolin] 1 - 2 puff INH Q4HP PRN 11/29/17 [History Confirmed 04/14/18 Last Taken Unknown] Amitriptyline [Elavil] 10 mg PO HS 11/29/17 [History Confirmed 11/29/17 Last Taken Unknown] Atorvastatin [Lipitor] 40 mg PO AC 11/29/17 [History Confirmed 04/14/18 Last Taken Unknown] Dorzolamide HCl/Timolol Maleat [Dorzolamide-Timolol Eye Drops] 2 drop OU BID [History Confirmed 04/14/18 Last Taken Unknown] Fluticasone Hfa 110Mcg [Flovent Hfa 110Mcg] 1 puff INH BID 11/29/17 [History Confirmed 04/14/18 Last Taken Unknown] Insulin Aspart [Novolog] 20 unit SQ TIDAC 11/29/17 [History Confirmed 04/14/18 Last Taken Unknown] Latanoprost Ophth Drops [Xalatan Ophth Drops] 1 gtt OU HS 11/29/17 [History Confirmed 04/14/18 Last Taken Unknown] Meloxicam [Mobic] 7.5 mg PO DAILY 11/29/17 [History Confirmed 04/14/18 Last Taken Unknown] Umeclidinium [place] [Incruse Ellipta] 62.5 mcg IH DAILY 11/29/17 [History Confirmed 04/14/18 Last Taken Unknown] carBAMazepine [TEGretol] 100 mg PO BID 11/29/17 [History Confirmed 04/14/18 Last Taken Unknown] Fenofibrate [Fenoglide] 160 mg PO AC 04/14/18 [History Confirmed 04/14/18 Last Taken Unknown] Insulin Glargine, Human [Lantus] 70 unit SQ BID 04/14/18 [History Confirmed 02/20 Last Taken Unknown] Medical - DS: Hosp Hospital course: Mr. Nice is a 57 year old M with h/o Type 2 DM on insulin , h/o non compliance presents to the emergency room for evaluation of hyperglycemia. The patient notes that for nearly a month he has not taken his insulin. According to the ED provider it has been approximately 2 weeks. The patient has no good explanation to why he stopped taking his insulin. The ED provider noted that the patient stopped taking insulin because it is difficult to take insulin during work?. The patient notes that for the last few days he is having blurry vision lower abdominal pain, otherwise has no acute complaints or concerns. He is also having some polyuria. The in the emergency room was hemodynamically stable, afebrile heart rate 83 blood pressure 109/82 saturating 94% on room air. WBC count normal at 5.7 hematocrit 36 platelets 177 Sodium 117, potassium 4.6 bicarbonate 21 chloride 85 BUN 25 creatinine 1.2 glucose 750. Anion gap was 11 albumin 3.4. Beta hydroxybutyrate elevated at 1.65. Urine analysis negative for UTI but ketones are positive and glucosuria present EKG shows sinus tachycardia chest x-ray on my interpretation is negative for an acute infection ABG shows pH is 7.36 PCO2 40 PO2 66 Given severe hyperglycemia elevated beta hydroxybutyrate patient's being admitted to the hospital with a diagnosis of DKA and hyperosmolar state Patient reports that he is compliant with his other oral medications just has not been taking insulin. The patient was treated with protocol, IV fluids and insulin drip, the hydroxybutyrate was better and glucose values improved, electrolytes stable The patient wishing to go home the next morning. feeling much better. He had a court appointment today, which will be cancelled as he was in the hospital. patient also has veery high TG values, edcuated need to be compliant on his cholesterol medications and the implications of very high TG, including pancreatitis, cardiovascular complications and , pt verbalized understanding. Patient advised to resume his home dose of insulin and start taking fish oil in addition to his statin and fibrate to help with this cholesterol issues. Discharge diagnosis: DKA-HSS, - Time Spent with Patient Total time spent providing and/or coordinating discharge services: Less than 30 minutes Medical - DS: Exam - Constitutional Vitals: Vital Signs Temp Pulse Pulse Resp BP BP Pulse Ox 04/15/18 07:02 60 11 L 98 04/15/18 07:01 98.8 F 13 137/85 95 04/15/18 06:01 12 130/71 94 04/15/18 05:06 72 18 113/78 99 04/15/18 04:01 98.0 F 65 17 108/76 97 04/15/18 03:01 65 16 109/68 97 04/15/18 02:01 65 15 98/61 99 04/15/18 01:01 66 15 89/45 100 04/15/18 00:01 97.6 F 64 14 103/63 99 04/14/18 23:01 64 11 L 100/64 100 04/14/18 22:01 65 15 108/70 100 04/14/18 21:29 65 16 96 04/14/18 21:01 69 16 99/56 94 04/14/18 20:01 97.2 F 66 16 101/53 95 04/14/18 19:01 63 13 112/73 96 04/14/18 18:01 17 116/68 04/14/18 17:08 15 12/10/18 17:01 18 102/54 96 04/14/18 16:18 71 18 93 04/14/18 16:02 68 18 122/82 100 04/14/18 15:32 98.6 F 16 119/80 04/14/18 15:22 70 20 100 04/14/18 15:19 72 14 131/85 100 04/14/18 15:17 125/76 04/14/18 15:09 78 16 139/95 95 04/14/18 15:08 98.4 F 72 18 131/85 96 04/14/18 15:01 66 14 125/76 96 04/14/18 14:46 65 15 116/78 99 04/14/18 14:36 17 122/89 04/14/18 14:28 16 04/14/18 14:18 15 04/14/18 14:17 15 139/95 04/14/18 14:09 78 17 95 04/14/18 13:49 73 16 95 04/14/18 13:46 14 106/81 04/14/18 13:31 73 13 126/69 97 04/14/18 13:16 109/74 04/14/18 13:01 16 124/74 04/14/18 12:46 16 126/80 04/14/18 12:35 21 04/14/18 12:31 87 17 132/83 91 04/14/18 12:16 86 15 129/81 95 04/14/18 12:01 89 113/82 94 04/14/18 11:49 86 9 L 117/80 95 04/14/18 11:44 82 10 L 91 04/14/18 11:33 89 126/70 93 04/14/18 11:31 92 H 122/79 93 04/14/18 11:16 132/76 04/14/18 11:10 135/75 04/14/18 10:48 98.3 F 103 H 18 109/82 100 Intake and Output 04/14/18 04/15/18 04/15/18 21:59 05:59 13:59 Intake Total 1046 / 1046 1999 Output Total 400 / 400 800 / 800 Balance 1046 / 1046 1600 / 1600 -800 / -800 Intake: IV 1046 / 1046 1999 Sodium Chloride 0.9% 1,000 ml @ 1000 / 1000 2000 / 1999 250 mls/hr IV .Q4H ANNIKA Rx#: [id number] HumuLIN R 50 UNIT In Sodium 27 / 27 Chloride 0.9% 99.5 ml @ 9.7 UNIT/HR 19.4 mls/hr IV DUR ONE Rx#:[id number] Output: Void Amount 400 / 400 800 / 800 Other: Urine Appearance Clear Clear Urine Color Straw Straw Weight 215 lb 8 oz Additional comments: Constitutional; Afebrile, cooperative, alert, not in distress. Respiratory system: Air Entry equal on both sides, No crackles or wheezing, no rhonchi. CVS- Rate rhythm regular, S1,S2 heard, no gallop, no rub. Abdomen- Soft nontender abdomen, no organomegaly, no tenderness, no guarding or rigidity, CLOTHES MODEL- AOOx3, moving all extremities, no gross focal deficit noted. Medical - DS: Data Labs on day of discharge: Labs from last 24 hours 04/15/18 04/15/18 04/14/18 03:45 03:45 18:20 WBC 5.1 RBC 3.88 L Hgb TNP Hct 31.3 L POC Hct MCV 80.5 MCH TNP MCHC TNP RDW 14.9 H Plt Count 129 L MPV 12.6 H Gran % 49.7 Lymph % (Auto) 42.8 Divide % (Auto) 4.0 Eos % (Auto) 3.0 Baso % (Auto) 0.5 Gran # 2.5 Lymph # (Auto) 2.2 [place] # (Auto) 0.2 Eos # (Auto) 0.2 Baso # (Auto) 0 Total Counted Band Neutrophils % Platelet Estimate RBC Morphology POC Sodium Sodium 132 L 133 POC Potassium Potassium 3.6 4.1 POC Chloride Chloride 98 100 Carbon Dioxide 23 26 POC Total CO2 Anion Gap 11.0 7.0 L POC BUN BUN 14 19 Creatinine 0.8 0.9 POC Creatinine GFR Calculation 99 94 Glucose 258 H 251 H POC Glucose Uric Acid 4.0 4.3 Calcium 7.8 L 8.7 POC WB Ioniz Calcium Phosphorus 2.0 L 2.6 L Magnesium 1.9 1.6 Total Bilirubin 0.2 0.2 Direct Bilirubin < 0.2 < 0.2 GGT 50 53 AST 16 < 5 ALT 14 < 5 Alkaline Phosphatase 81 95 Lactate Dehydrogenase 134 210 Total Protein 5.6 L 6.2 Albumin 3.1 L 3.4 Globulin 2.5 2.8 Albumin/Globulin Ratio 1.2 1.2 Triglycerides 2424 H 2107 H Beta-Hydroxybutyrate Urine Color Urine Appearance Urine pH Ur Specific [place] Urine Protein Urine Glucose (UA) Urine Ketones Urine Occult Blood Urine Nitrate Urine Bilirubin Urine Urobilinogen Ur Leukocyte Esterase Urine RBC Urine WBC Ur Squamous Epith Cells Urine Bacteria Ur Culture Indicated? Urine Opiates Screen Ur Opiates Confirm Ur Oxycodone Screen Urine Methadone Screen Ur Methadone Confirm Ur Barbiturates Screen Ur Barbiturate Confirm Ur Phencyclidine Scrn Urine PCP Confirm Ur Amphetamines Screen U Amphetamines Confirm U Benzodiazepines Scrn U Benzodiazepine Confm Urine Cocaine Screen Urine Cocaine Confirm U Cannabinoids Confirm U Marijuana (THC) Screen 04/14/18 04/14/18 04/14/18 15:26 12:38 12:35 WBC RBC Hgb Hct POC Hct MCV MCH MCHC RDW Plt Count MPV Gran % Lymph % (Auto) Divide % (Auto) Eos % (Auto) Baso % (Auto) Gran # Lymph # (Auto) [place] # (Auto) Eos # (Auto) Baso # (Auto) Total Counted Band Neutrophils % Platelet Estimate RBC Morphology POC Sodium Sodium POC Potassium Potassium POC Chloride Chloride Carbon Dioxide POC Total CO2 Anion Gap POC BUN BUN Creatinine POC Creatinine GFR Calculation Glucose POC Glucose Uric Acid Calcium POC WB Ioniz Calcium Phosphorus Magnesium Total Bilirubin Direct Bilirubin GGT AST ALT Alkaline Phosphatase Lactate Dehydrogenase Total Protein Albumin Globulin Albumin/Globulin Ratio Triglycerides Beta-Hydroxybutyrate 0.18 Urine Color Straw Urine Appearance Clear Urine pH 6.0 Ur Specific [place] 1.028 Urine Protein Neg Urine Glucose (UA) >=500 A Urine Ketones 5/tr A Urine Occult Blood Neg Urine Nitrate Neg Urine Bilirubin Neg Urine Urobilinogen Neg Ur Leukocyte Esterase Neg Urine RBC 0 Urine WBC < 1 Ur Squamous Epith Cells 0 Urine Bacteria 0 Ur Culture Indicated? No Urine Opiates Screen None detected Ur Opiates Confirm Not Reportable Ur Oxycodone Screen None detected Urine Methadone Screen None detected Ur Methadone Confirm Not Reportable Ur Barbiturates Screen None detected Ur Barbiturate Confirm Not Reportable Ur Phencyclidine Scrn None detected Urine PCP Confirm Not Reportable Ur Amphetamines Screen None detected U Amphetamines Confirm Not Reportable U Benzodiazepines Scrn None detected U Benzodiazepine Confm Not Reportable Urine Cocaine Screen None detected Urine Cocaine Confirm Not Reportable U Cannabinoids Confirm Not Reportable U Marijuana (THC) Screen None detected 04/14/18 04/14/18 04/14/18 11:12 11:12 11:12 WBC RBC Hgb Hct POC Hct 39.0 L MCV MCH MCHC RDW Plt Count MPV Gran % Lymph % (Auto) Divide % (Auto) Eos % (Auto) Baso % (Auto) Gran # Lymph # (Auto) [place] # (Auto) Eos # (Auto) Baso # (Auto) Total Counted Pending Band Neutrophils % Pending Platelet Estimate Pending RBC Morphology Pending POC Sodium 124 L Sodium 117 L* POC Potassium 4.7 Potassium 4.6 POC Chloride 90 L Chloride 85 L Carbon Dioxide 21 L POC Total CO2 24 Anion Gap 11.0 POC BUN 31 H BUN 25 H Creatinine 1.2 POC Creatinine 1.0 GFR Calculation 67 Glucose 750 H* POC Glucose > 700 H* Uric Acid Calcium 9.0 POC WB Ioniz Calcium 1.20 Phosphorus Magnesium Total Bilirubin 0.4 Direct Bilirubin GGT AST < 5 ALT < 5 Alkaline Phosphatase 108 Lactate Dehydrogenase Total Protein 6.5 Albumin 3.4 Globulin 3.1 Albumin/Globulin Ratio 1.1 Triglycerides Beta-Hydroxybutyrate 1.65 H Urine Color Urine Appearance Urine pH Ur Specific [place] Urine Protein Urine Glucose (UA) Urine Ketones Urine Occult Blood Urine Nitrate Urine Bilirubin Urine Urobilinogen Ur Leukocyte Esterase Urine RBC Urine WBC Ur Squamous Epith Cells Urine Bacteria Ur Culture Indicated? Urine Opiates Screen Ur Opiates Confirm Ur Oxycodone Screen Urine Methadone Screen Ur Methadone Confirm Ur Barbiturates Screen Ur Barbiturate Confirm Ur Phencyclidine Scrn Urine PCP Confirm Ur Amphetamines Screen U Amphetamines Confirm U Benzodiazepines Scrn U Benzodiazepine Confm Urine Cocaine Screen Urine Cocaine Confirm U Cannabinoids Confirm U Marijuana (THC) Screen 04/14/18 11:12 WBC 5.7 RBC 4.56 Hgb TNP Hct 36.6 L POC Hct MCV 80.3 MCH TNP MCHC TNP RDW 14.4 Plt Count 177 MPV 12.8 H Gran % Lymph % (Auto) [place] % (Auto) Eos % (Auto) Baso % (Auto) Gran # Lymph # (Auto) [place] # (Auto) Eos # (Auto) Baso # (Auto) Total Counted Band Neutrophils % Platelet Estimate RBC Morphology POC Sodium Sodium POC Potassium Potassium POC Chloride Chloride Carbon Dioxide POC Total CO2 Anion Gap POC BUN BUN Creatinine POC Creatinine GFR Calculation Glucose POC Glucose Uric Acid Calcium POC WB Ioniz Calcium Phosphorus Magnesium Total Bilirubin Direct Bilirubin GGT AST ALT Alkaline Phosphatase Lactate Dehydrogenase Total Protein Albumin Globulin Albumin/Globulin Ratio Triglycerides Beta-Hydroxybutyrate Urine Color Urine Appearance Urine pH Ur Specific [place] Urine Protein Urine Glucose (UA) Urine Ketones Urine Occult Blood Urine Nitrate Urine Bilirubin Urine Urobilinogen Ur Leukocyte Esterase Urine RBC Urine WBC Ur Squamous Epith Cells Urine Bacteria Ur Culture Indicated? Urine Opiates Screen Ur Opiates Confirm Ur Oxycodone Screen Urine Methadone Screen Ur Methadone Confirm Ur Barbiturates Screen Ur Barbiturate Confirm Ur Phencyclidine Scrn Urine PCP Confirm Ur Amphetamines Screen U Amphetamines Confirm U Benzodiazepines Scrn U Benzodiazepine Confm Urine Cocaine Screen Urine Cocaine Confirm U Cannabinoids Confirm U Marijuana (THC) Screen Medical - DS: A/P - Patient/Caregiver Discharge Instructions Activity: increase activity as tolerated Diet: Consistent Carbohydrate Additional Instructions: Please take your insulin as prescribed by your regular doctors Take all your medications as prescribed Your triglyceride levels (fats) in your blood is very high, this can lead to life threatening complications, please make sure you take your cholesterol pills as prescribed. Start on fish oil three times a day Go to the ER if worsening symptoms or any other acute concerns. Follow up with the PCP in 1 week. - Follow up Plan Follow up with: Jennifer Hernandez ARNP [Primary Care Provider] - 04/22/18 9:20 am Disposition: Home, Self-Care Prognosis: Fair Rehab Potential: Fair I certify that the patient requires SNF services: No Overall status at discharge: patient is progressing back to baseline Medical - DS: Qual - VTE Deep Vein Thrombosis/Pulmonary Embolism Present on Admission: No
== END 2018-04-15 09:33 | disposition home or self-care (01) | DRG 639 ==
LOC: ED 10:47 → ICU 15:08
PROVIDERS: ADMIT Internal Medicine; ATTEND Internal Medicine
CPT/HCPCS: 80047; 82010; 85014; 99223; 99238; J1644; J1815; J1817; J2060; J2405; J3475; J7030

== ENCOUNTER 2018-10-10 23:27 | Observation (INO) ==
[2018-10-10] MEDS ORDERED: 0.9 % SODIUM CHLORIDE 1,000 ML IV ONE (23:36)
[2018-10-10] MEDS ORDERED: ONDANSETRON 4 MG/2 ML VIAL IV ONE (23:41)
[2018-10-10] MEDS ORDERED: 0.9 % SODIUM CHLORIDE 2,000 ML IV ONE (23:41)
[2018-10-10] MEDS ORDERED: METHOCARBAMOL 1,000 MG/10 ML VIAL IV ONE (23:44)
--- NOTE | 2018-10-10 23:49 | Emergency Department Note ---
Dizziness HPI - General Chief Complaint: Dizziness Stated Complaint: dizziness Time Seen by Provider: 10/10/18 23:33 Source: patient Mode of arrival: EMS Limitations: no limitations - History of Present Illness HPI Narrative: 58-year-old diabetic patient comes in complaining of dizziness and headache. The dizziness is not similar to vertigo as a presyncopal kind of symptom. he was working outside today and it was hot and thinks he may have overdone it. He is hypotensive. He has multiple comorbidities as well. He states he has only urinated once today. He is complaining of chronic back pain which is worse today. He has not taken this afternoon or evening insulin - Related Data Home Medications Medication Instructions Recorded Confirmed Clopidogrel [Plavix] 75 mg PO AC 09/28/17 04/14/18 Lisinopril [Zestril] 10 mg PO DAILY 09/28/17 04/14/18 Mirtazapine [Remeron] 30 mg PO AC 09/28/17 04/14/18 Pantoprazole Sodium [Protonix] 20 mg PO 09/28/17 04/14/18 Sertraline HCl [Zoloft] 50 mg PO 09/28/17 04/14/18 tiZANidine HCL [Zanaflex] 8 mg PO TID 09/28/17 04/14/18 traZODone HCL [Desyrel] 150 - 300 mg PO 09/28/17 04/14/18 Albuterol Sulfate [Ventolin] 1 - 2 puff INH Q4HP PRN 11/29/17 04/14/18 Amitriptyline [Elavil] 10 mg PO 11/29/17 11/29/17 Atorvastatin [Lipitor] 40 mg PO 11/29/17 04/14/18 Dorzolamide HCl/Timolol Maleat 2 drop OU BID 11/29/17 04/14/18 [Dorzolamide-Timolol Eye Drops] Fluticasone Hfa 110Mcg [Flovent 1 puff INH BID 11/29/17 04/14/18 Hfa 110Mcg] Insulin Aspart [Novolog] 20 unit SQ TIDAC 11/29/17 04/14/18 Latanoprost Ophth Drops [Xalatan 1 gtt OU HS 11/29/17 04/14/18 Ophth Drops] Meloxicam [Mobic] 7.5 mg PO DAILY 11/29/17 04/14/18 Umeclidinium [place] [Incruse 62.5 mcg IH DAILY 11/29/17 04/14/18 Ellipta] carBAMazepine [Tegretol] 100 mg PO BID 11/29/17 04/14/18 Fenofibrate [Fenoglide] 160 mg PO AC 04/14/18 04/14/18 Insulin Glargine, Human [Lantus] 70 unit SQ BID 04/14/18 04/14/18 Previous Rx's Medication Instructions Recorded [place]-3 Fatty Acids [Fish Oil 1,000 mg PO TID #90 cap 04/15/18 Concentrate] Allergies Allergy/AdvReac Type Severity Reaction Status Date / Time No Known Drug Allergies Allergy Verified 12/27/17 15:22 Review of Systems All systems ED: reviewed and negative except as stated. Past Medical History - Past Medical History Attestation: Yes: The following information was validated with the patient. [facility] Narrative: Family History Mother Malignant tumor of pancreas Father Myocardial infarction Medical History Fibromyalgia (Chronic) Diabetic cheirarthropathy (Chronic) Encounter for long-term (current) use of high-risk medication (Chronic) Raynaud phenomenon (Acute) Connective tissue disease (Suspected) Buerger's disease (Chronic) BPH (benign prostatic hyperplasia) (Chronic) CAD (coronary artery disease) (Chronic) Colitis, ulcerative (Chronic) Diastasis of muscle (Chronic) Hyperglyceridemia (Chronic) Low back pain (Chronic) Obesity (Chronic) Raynauds syndrome (Chronic) Seizures (Chronic) Sexual dysfunction (Chronic) AUGUSTUS positive (Acute) Diabetes mellitus (Chronic) Diabetic renal disease (Chronic) Diabetic neuropathy (Chronic) Depressive disorder (Chronic) Tobacco dependence syndrome (Chronic) Insomnia (Chronic) Obstructive sleep apnea of adult (Chronic) Chronic pain (Chronic 11/26/12) Epilepsy (Chronic 11/26/12) Glaucoma (Chronic) Hypertensive retinopathy (Chronic) Cataract (Chronic) Essential hypertension (Chronic) Chronic obstructive lung disease (Chronic) Coronary atherosclerosis (Chronic) GERD (gastroesophageal reflux disease) (Chronic) Multiple joint pain (Chronic) Lumbar radiculopathy (Chronic) Chronic back pain (Chronic) Degenerative, intervertebral disc (Chronic) Hypoxia (Chronic) Past Surgical History History of bilateral cataract extraction (Chronic) History of cholecystectomy (Chronic) History of elbow surgery (Chronic) History of foot surgery (Chronic) History of left knee surgery (Chronic) 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 Normocephalic atraumatic. Conjunctive are mildly injected bilaterally but extraocular movements are intact pupils are equal round reactive to light. No nasal discharge or congestion. Oropharynx with dry buccal mucosa right ear with normal tympanic membrane and canal. Left ear with cerumen impaction. Neck is supple without lymphadenopathy thyromegaly or carotid bruit. Heart is regular rate and rhythm no murmur appreciated. Lungs are clear to auscultation bilaterally without wheezes rales rhonchi or respiratory distress. Abdomen is diffusely tender but he is not complaining of belly pain. There is no peritoneal signs guarding or rigidity. No pedal edema. He is missing one finger on his left hand. Alert oriented able to give me reasonable history Limitations: no limitations Course Vital Signs Temperature 97.1 F 10/10/18 23:28 Pulse Rate 69 10/10/18 23:28 Respiratory Rate 18 10/10/18 23:28 Blood Pressure 73/58 10/10/18 23:28 Pulse Oximetry (%) 90 10/10/18 23:28 Temperature 97.1 F 10/10/18 23:28 Pulse Rate 32 L 10/11/18 00:53 Respiratory Rate 17 10/11/18 00:53 Blood Pressure 94/58 10/11/18 00:33 Pulse Oximetry (%) 94 10/11/18 00:53 Dizziness - Lab Data Lab results reviewed: Yes I reviewed the patient's lab results. Lab results narrative: Arterial blood gas shows a pH of 7.35 PCO2 42 PO2 was listed as incalculable is not clear why this is. He is on room air Result diagrams: 10/10/18 23:58 10/10/18 23:58 Lab Results 10/10/18 10/10/18 10/10/18 Range/Units 23:58 23:58 23:58 WBC 8.3 (4.5-11.0) K/mcL RBC 3.75 L (4.50-5.90) M/mcL Hgb 10.4 L (13.5-16.5) g/dL Hct 31.0 L (41.0-55.0) % POC Hct 29.0 L (41.0-55.0) % MCV 82.8 (80.0-100.0) fL MCH 27.6 (26.0-34.0) pg MCHC 33.4 (31.0-36.0) g/dL RDW 13.9 (11.5-14.5) % Plt Count 166 (140-440) K/mcL MPV 11.6 H (7.4-10.4) fL Gran % 66.6 (38.0-78.0) % Lymph % (Auto) 25.1 (15.5-49.0) % Edmunds % (Auto) 6.3 (1.0-12.0) % Eos % (Auto) 1.7 (0.0-7.0) % Baso % (Auto) 0.3 (0.0-2.0) % Gran # 5.5 (1.8-8.0) K/mcL Lymph # (Auto) 2.1 (1.5-4.8) K/mcL Edmunds # (Auto) 0.5 (0.1-0.9) K/mcL Eos # (Auto) 0.1 (0.0-0.7) K/mcL Baso # (Auto) 0 (0.0-0.3) K/mcL VBG Lactic Acid 1.8 (0.5-2.0) mmol/L POC Sodium 133 (133-145) mmol/L Sodium 132 L (133-145) mmol/L POC Potassium 3.7 (3.3-5.1) mmol/L Potassium 3.8 (3.3-5.1) mmol/L POC Chloride 96 (96-108) mmol/L Chloride 95 L (96-108) mmol/L Carbon Dioxide 22 (22-30) mmol/L POC Total CO2 24 (22-30) mmol/L Anion Gap 15.0 (8-16) POC BUN 27 H (6-20) mg/dl BUN 28 H (6-20) mg/dl Creatinine 1.6 H (0.7-1.2) mg/dl POC Creatinine 1.8 H (0.7-1.2) mg/dl GFR Calculation 47 Glucose 356 H (70-105) mg/dL POC Glucose 345 H (70-105) mg/dL Calcium 8.3 L (8.6-10.4) mg/dl POC WB Ioniz Calcium 1.13 L (1.16-1.32) mmol/L Total Bilirubin 0.3 (0.0-1.0) mg/dL AST 17 (0-37) U/l ALT 19 (0-40) U/l Alkaline Phosphatase 104 (39-117) U/L Troponin T (0-0.03) ng/ml Total Protein 6.2 (5.9-8.4) gm/dL Albumin 3.6 (3.2-5.2) gm/dL Globulin 2.6 (2.2-3.7) gm/dL Albumin/Globulin Ratio 1.4 (1.0-2.3) 10/10/18 Range/Units 23:58 WBC (4.5-11.0) K/mcL RBC (4.50-5.90) M/mcL Hgb (13.5-16.5) g/dL Hct (41.0-55.0) % POC Hct (41.0-55.0) % MCV (80.0-100.0) fL MCH (26.0-34.0) pg MCHC (31.0-36.0) g/dL RDW (11.5-14.5) % Plt Count (140-440) K/mcL MPV (7.4-10.4) fL Gran % (38.0-78.0) % Lymph % (Auto) (15.5-49.0) % Edmunds % (Auto) (1.0-12.0) % Eos % (Auto) (0.0-7.0) % Baso % (Auto) (0.0-2.0) % Gran # (1.8-8.0) K/mcL Lymph # (Auto) (1.5-4.8) K/mcL Edmunds # (Auto) (0.1-0.9) K/mcL Eos # (Auto) (0.0-0.7) K/mcL Baso # (Auto) (0.0-0.3) K/mcL VBG Lactic Acid (0.5-2.0) mmol/L POC Sodium (133-145) mmol/L Sodium (133-145) mmol/L POC Potassium (3.3-5.1) mmol/L Potassium (3.3-5.1) mmol/L POC Chloride (96-108) mmol/L Chloride (96-108) mmol/L Carbon Dioxide (22-30) mmol/L POC Total CO2 (22-30) mmol/L Anion Gap (8-16) POC BUN (6-20) mg/dl BUN (6-20) mg/dl Creatinine (0.7-1.2) mg/dl POC Creatinine (0.7-1.2) mg/dl GFR Calculation Glucose (70-105) mg/dL POC Glucose (70-105) mg/dL Calcium (8.6-10.4) mg/dl POC WB Ioniz Calcium (1.16-1.32) mmol/L Total Bilirubin (0.0-1.0) mg/dL AST (0-37) U/l ALT (0-40) U/l Alkaline Phosphatase (39-117) U/L Troponin T < 0.01 (0-0.03) ng/ml Total Protein (5.9-8.4) gm/dL Albumin (3.2-5.2) gm/dL Globulin (2.2-3.7) gm/dL Albumin/Globulin Ratio (1.0-2.3) Urinalysis [id number] dipstick shows large amount of glucose specific gravity 1.025 this is after 2 L of normal saline - Radiology Data Radiology results reviewed: Yes I reviewed the patient's radiology results. Chest x-ray shows no acute infiltrate CT scan of the head is read as normal - EKG Data EKG attestation: Yes I reviewed and interpreted this EKG. EKG results narrative: EKG shows sinus rhythm with long MT.. Left axis deviation. Long QT as well. Question of right bundle branch block Disposition Pt seen by [facility]/PA only: No Clinical Impression: Acute kidney injury, Dehydration Uncontrolled type 2 diabetes mellitus Qualifiers: Glycemic state: with hyperglycemia Qualified Code(s): E11.65 - Type 2 diabetes mellitus with hyperglycemia Exhaustion, heat, due to water depletion Qualifiers: Encounter type: initial encounter Qualified Code(s): T67.3XXA - Heat exhaustion, anhydrotic, initial encounter Summary: Suspect heat exhaustion with dehydration versus TIA versus other pathology. Work-up ordered. IV fluids started. We will give Robaxin for back pain EKG chest x-ray CT scan of the head are unrevealing. Orthostatics show hypotension but are negative for blood pressure drop with sitting or standing Chem-8 shows creatinine bump from 0.9 up to 1.8 consistent with acute kidney injury dehydration, likely from heat exhaustion. Robaxin did not help his back pain so we will give him a dose of hydrocodone orally-he is not having nausea or vomiting at this time. He does not have a fever nor stiff neck-he is able to sit for my exam without any difficulty. He points to the right SI joint lumbar area as to where his back pain is at On CMP creatinine is 1.6. After a couple liters of fluid his blood sugar still elevated over 300 so 5 units insulin regular given. Blood pressure initially came up to 98 systolic but then dropped back down into the 80s. I reevaluated him and his history still sounds most consistent with heat exhaustion. That is he worked outside today and although it is not very hot outside, he did exert himself and did not stay hydrated. After that he became presyncopal and he had a headache and back pain. He reported some mild chest pain as well but troponin and EKG did not show evidence of ACS Add a procalcitonin, fibrinogen and CK to make sure were not missing occult sepsis, DIC or rhabdomyolysis. Discussed scenario with Dr. Tavares, hospitalist, who agreed to come see the patient and admit for hypotension Disposition: Xfer As Inpt ([facility]) Condition: Fair Referrals: Jennifer Hernandez ARNP [Primary Care Provider] -
[2018-10-11 00:13] LABS: POC Blood Urea Nitrogen 27 mg/dl (6-20); POC CO2 24 mmol/L (22-30); POC Calcium, Ionized 1.13 mmol/L (1.16-1.32); POC Chloride 96 mmol/L (96-108); POC Creatinine 1.8 mg/dl (0.7-1.2); POC Glucose, Random 345 mg/dL (70-105); POC Potassium 3.7 mmol/L (3.3-5.1); POC Sodium 133 mmol/L (133-145)
[2018-10-11] MEDS ORDERED: HYDROcodone/APAP 5/325MG TABLET PO ONE (00:32)
[2018-10-11 00:35] LABS: Basophils # (Auto) 0 K/mcL (0.0-0.3); Basophils % (Auto) 0.3 % (0.0-2.0); Eosinophils # (Auto) 0.1 K/mcL (0.0-0.7); Eosinophils % (Auto) 1.7 % (0.0-7.0); Granulocytes % (Auto) 66.6 % (38.0-78.0); Hemoglobin 10.4 g/dL (13.5-16.5); Lymphocytes # (Auto) 2.1 K/mcL (1.5-4.8); Lymphocytes % (Auto) 25.1 % (15.5-49.0); Mean Cell Volume 82.8 fL (80.0-100.0); Mean Corpuscular HGB Conc 33.4 g/dL (31.0-36.0); Mean Platelet Volume 11.6 fL (7.4-10.4); Monocytes # (Auto) 0.5 K/mcL (0.1-0.9); Monocytes % (Auto) 6.3 % (1.0-12.0); Platelet Count 166 K/mcL (140-440); RBC 3.75 M/mcL (4.50-5.90); Red Cell Distribution Width 13.9 % (11.5-14.5); WBC 8.3 K/mcL (4.5-11.0)
[2018-10-11 00:58] LABS: ALT/SGPT 19 U/l (0-40); AST/SGOT 17 U/l (0-37); Albumin 3.6 gm/dL (3.2-5.2); Albumin/Globulin Ratio 1.4 (1.0-2.3); Alkaline Phosphatase 104 U/L (39-117); Bilirubin,Total 0.3 mg/dL (0.0-1.0); Blood Urea Nitrogen 28 mg/dl (6-20); Calcium 8.3 mg/dl (8.6-10.4); Carbon Dioxide 22 mmol/L (22-30); Chloride 95 mmol/L (96-108); Globulin 2.6 gm/dL (2.2-3.7); Glomerular Filtration Rate 47; Glucose 356 mg/dL (70-105); Potassium 3.8 mmol/L (3.3-5.1); Sodium 132 mmol/L (133-145)
[2018-10-11] MEDS ORDERED: INSULIN REGULAR, HUMAN 1 UNIT/0.01 ML UNIT IV ONE (00:59)
[2018-10-11 01:46] LABS: Creatine Kinase 82 IU/L (24-195)
--- NOTE | 2018-10-11 01:58 | Internal Med History&Physical ---
Medical - H&P: HPI Patient information: Note initiated : 10/11/18 at 1:54 am Service Date, if different from initiated Date: [] Patient: Jordi Nice a 58 y/o M admitted on for dizziness. Chief Complaint: [] History of present illness: Mr. Nice is a 58 year old M with history of chronic noncompliance, diabetic needing insulin presents to the emergency room for dizziness not feeling well and a few episodes of diarrhea. The patient notes that yesterday he was working outside in sun, ignoring the fact that he was sweating, getting dehydrated. He passed urine x1 only and was aware that he was getting dehydrated but wanted to finish his work so he continued working. He was dizzy and felt presyncopal then went to rest. He had a few episodes of diarrhea after he woke up a while ago he notes 3 episodes, w ith an accident. He also notes that he nearly lost his balance and fell in the bathroom. He came to the emergency room for further evaluation. On presenting to the emergency room patient was afebrile 97.1 heart rate 69 blood pressure 73 x 58 respirations 18 saturating 94% Patient was given fluids with some improvement on his blood pressure but the blood pressure came down again, after 2 L of fluids the blood pressure dropped down to 81 systolic. Work-up shows WBC count of 8.3 hemoglobin 10.4 platelets 166 lactic acid 1.8 sodium 132 potassium 3.8 BUN 28 creatinine 1.6 which is worsening since 0.86 months ago bicarbonate 22 glucose 356 troponin is negative. EKG shows sinus rhythm left axis no significant ST wave changes Chest x-ray is negative head CT is negative Given that the patient after 2 to 3 L of fluid in the emergency room is still hypotensive patient is being admitted to observation for further management. All systems: reviewed and no additional remarkable complaints except as stated (as per HPI rest neg) Medical - H&P: PMH Medical history: Medical History Fibromyalgia (Chronic) Diabetic cheirarthropathy (Chronic) Encounter for long-term (current) use of high-risk medication (Chronic) Raynaud phenomenon (Acute) Connective tissue disease (Suspected) Buerger's disease (Chronic) BPH (benign prostatic hyperplasia) (Chronic) CAD (coronary artery disease) (Chronic) Colitis, ulcerative (Chronic) Diastasis of muscle (Chronic) Hyperglyceridemia (Chronic) Low back pain (Chronic) Obesity (Chronic) Raynauds syndrome (Chronic) Seizures (Chronic) Sexual dysfunction (Chronic) AUGUSTUS positive (Acute) Diabetes mellitus (Chronic) Diabetic renal disease (Chronic) Diabetic neuropathy (Chronic) Depressive disorder (Chronic) Tobacco dependence syndrome (Chronic) Insomnia (Chronic) Obstructive sleep apnea of adult (Chronic) Chronic pain (Chronic 11/26/12) Epilepsy (Chronic 11/26/12) Glaucoma (Chronic) Hypertensive retinopathy (Chronic) Cataract (Chronic) Essential hypertension (Chronic) Chronic obstructive lung disease (Chronic) Coronary atherosclerosis (Chronic) GERD (gastroesophageal reflux disease) (Chronic) Multiple joint pain (Chronic) Lumbar radiculopathy (Chronic) Chronic back pain (Chronic) Degenerative, intervertebral disc (Chronic) Hypoxia (Chronic) Surgical history: Past Surgical History History of bilateral cataract extraction (Chronic) History of cholecystectomy (Chronic) History of elbow surgery (Chronic) History of foot surgery (Chronic) History of left knee surgery (Chronic) 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) Pertinent family history: Family History Mother Malignant tumor of pancreas Father Myocardial infarction Medical - H&P: Meds Home Medications Medication Instructions Recorded Confirmed Type Clopidogrel [Plavix] 75 mg PO AC 09/28/17 04/14/18 History Lisinopril [Zestril] 10 mg PO DAILY 09/28/17 04/14/18 History Mirtazapine [Remeron] 30 mg PO AC 09/28/17 04/14/18 History Pantoprazole Sodium [Protonix] 20 mg PO AC 09/28/17 04/14/18 History Sertraline HCl [Zoloft] 50 mg PO AC 09/28/17 04/14/18 History tiZANidine HCL [Zanaflex] 8 mg PO TID 09/28/17 04/14/18 History traZODone HCL [Desyrel] 150 - 300 mg PO 09/28/17 04/14/18 History Albuterol Sulfate [Ventolin] 1 - 2 puff INH Q4HP PRN 11/29/17 04/14/18 History Amitriptyline [Elavil] 10 mg PO HS 11/29/17 11/29/17 History Atorvastatin [Lipitor] 40 mg PO AC 11/29/17 04/14/18 History Dorzolamide HCl/Timolol Maleat 2 drop OU BID 11/29/17 04/14/18 History [Dorzolamide-Timolol Eye Drops] Fluticasone Hfa 110Mcg [Flovent 1 puff INH BID 11/29/17 04/14/18 History Hfa 110Mcg] Insulin Aspart [Novolog] 20 unit SQ TIDAC 11/29/17 04/14/18 History Latanoprost Ophth Drops [Xalatan 1 gtt OU HS 11/29/17 04/14/18 History Ophth Drops] Meloxicam [Mobic] 7.5 mg PO DAILY 11/29/17 04/14/18 History Umeclidinium [place] [Incruse 62.5 mcg IH DAILY 11/29/17 04/14/18 History Ellipta] carBAMazepine [Tegretol] 100 mg PO BID 11/29/17 04/14/18 History Fenofibrate [Fenoglide] 160 mg PO AC 04/14/18 04/14/18 History Insulin Glargine, Human [Lantus] 70 unit SQ BID 04/14/18 04/14/18 History [place]-3 Fatty Acids [Fish Oil 1,000 mg PO TID #90 cap 04/15/18 Rx Concentrate] Allergies Allergy/AdvReac Type Severity Reaction Status Date / Time No Known Drug Allergies Allergy Verified 12/27/17 15:22 Medical - H&P: Exam - Constitutional Vitals: Temp Pulse Resp BP Pulse Ox 97.1 F 67 15 81/53 90 10/10/18 23:28 10/11/18 01:34 10/11/18 01:34 10/11/18 01:31 10/11/18 01:34 Exam: CGENERAL: The patient is a well-developed, well-nourished in no apparent distress. Is alert and oriented x3. VITAL SIGNS: Reviewed and as noted elsewhere. HEENT: Head is normocephalic and atraumatic. Extraocular muscles are intact. Pupils are equal, round, and reactive to light. Nares appeared normal. Mouth appears any without lesions. Mucous membranes are dry. NECK: Normal to inspection, Supple, No lymphadenopathy or thyromegaly. LUNGS: Air entry equal on both sides, no wheezing, crackles or rhonchi noted. No accessory muscles of respiration HEART: Regular rate and rhythm normal, S1 and S2 heard, no Gallop, S3 or Rub Noted, No Gross murmur heard. ABDOMEN: Soft, some epigastric tenderness but nondistended. Positive bowel sounds. No hepatosplenomegaly was noted. EXTREMITIES: No cyanosis, clubbing, rash, lesions or edema. NEUROLOGIC: Cranial nerves II through XII are grossly intact. Motor and Sensory System Grossly Intact PSYCHIATRIC: Normal affect, Normal Mood. Appropriate Behavior. SKIN: No ulceration or wounds noted, No jaundice, No rash noted. Medical - H&P: Reslt - Labs CBC & Chem 7: 10/10/18 23:58 10/10/18 23:58 Labs: Short CBC 10/10/18 Range/Units 23:58 WBC 8.3 (4.5-11.0) K/mcL Hgb 10.4 L (13.5-16.5) g/dL Hct 31.0 L (41.0-55.0) % Plt Count 166 (140-440) K/mcL BMP 10/10/18 23:58 Sodium 132 L Potassium 3.8 Chloride 95 L Carbon Dioxide 22 BUN 28 H Creatinine 1.6 H Glucose 356 H Calcium 8.3 L Cardiac Enzymes 10/10/18 10/10/18 Range/Units 23:58 23:58 Total Creatine Kinase 82 (24-195) IU/L Troponin T < 0.01 (0-0.03) ng/ml Liver Function 10/10/18 Range/Units 23:58 Total Bilirubin 0.3 (0.0-1.0) mg/dL AST 17 (0-37) U/l ALT 19 (0-40) U/l Alkaline Phosphatase 104 (39-117) U/L Albumin 3.6 (3.2-5.2) gm/dL Medical - H&P: A/P - Narrative A/P Narrative: A/P Hypotenstion Dizziness Diabetes, Insulin dependent Acute Kidney Injury Plan Monitor on Obs, tele status IV fluids, aggressive rehydration as its likely a case of severe dehydration but will r/o any occult infection, check ua and send for urine culture, blood culture pending. Get Ct Chest abdomen and pelvis check procalcitonin. give one dose of vanco and zosyn in case DVT hep sq Diet carb consistent Full code Social History - Social History education level: high school occupational status: unemployed sexually active: Yes - Tobacco smoking status: Current every day smoker - Alcohol alcohol intake frequency: does not drink - Substance use substance use type: does not use - Safety seatbelt use: always - Home Safety working smoke detector in home: Yes
[2018-10-11] MEDS ORDERED: oxyCODONE/APAP 5/325MG TABLET PO PRN (02:16)
[2018-10-11] MEDS ORDERED: NALOXONE HCL 0.4 MG/ML VIAL IV PRN (02:16)
[2018-10-11] MEDS ORDERED: DEXTROSE 31 GM ORAL.SUSP PO PRN (02:16)
[2018-10-11] MEDS ORDERED: DEXTROSE 50% 50 ML VIAL IV PRN (02:16)
[2018-10-11] MEDS ORDERED: VANCOMYCIN 1,500 MG in 0.9 % SODIUM CHLORIDE 500 ML IV ONE (02:16)
[2018-10-11] MEDS ORDERED: ACETAMINOPHEN 325 MG TABLET PO PRN (02:16)
[2018-10-11] MEDS ORDERED: ONDANSETRON 4 MG/2 ML VIAL IV PRN (02:16)
[2018-10-11] MEDS ORDERED: PIPERACILLIN SODIUM/TAZOBACTAM 3.375 GM in DEXTROSE 5% IN WATER 50 ML IV ONE (02:16)
--- NOTE | 2018-10-11 02:32 | Cat Scan Report ---
CLINICAL INFORMATION: Hypotension and headache COMPARISON: None. TECHNIQUE: 2.5 mm helical slices were obtained in the skull base to vertex. Following reconstruction, axial reformatted images were reviewed at bone and parenchymal windows. The exam was performed using radiation dose optimization techniques including, but not limited to, automated exposure control, adjustment of the mA and/or kV according to patient size and use of iterative reconstruction technique. FINDINGS: The ventricles, sulci, fissures, and cisterns are normal in size and configuration. No extra-axial fluid collections are identified. The cerebrum, brainstem and cerebellum are unremarkable. There is no evidence of hemorrhage, mass effect, or edema. Bone windows show no osseous abnormality. IMPRESSION: Normal head CT without contrast. Interpreted and Authenticated by: Zeus Lindsay 10/11/18
--- NOTE | 2018-10-11 02:33 | XRay Report ---
CLINICAL INFORMATION: hypotension COMPARISON: 04/14/2018 FINDINGS: The heart size, mediastinum and pulmonary vessels are unremarkable. The lungs are clear. There are no effusions. The bones and soft tissues are within normal limits. IMPRESSION: Normal chest. Interpreted and Authenticated by: Zeus Lindsay 10/11/18
[2018-10-11] MEDS: LACTATED RINGERS 1,000 ML IV SCH ×2 (02:51→06:54)
[2018-10-11] MEDS ORDERED: oxyCODONE/APAP 5/325MG TABLET PO ONE (02:59)
[2018-10-11 03:16] LABS: Appearance,Urine CLEAR; Bacteria,Urine FEW /hpf (0); Bilirubin,Urine NEG (NEG); Color,Urine YELLOW; Glucose,Urine (UA) 500 (2+) mg/dL (NEG); Ictotest,Urine NEG (NEG); Ketones,Urine 15/1+ mg/dL (NEG); Leukocyte Esterase,Urine NEG /uL (NEG); Mucus,Urine MANY /hpf (0); Nitrate,Urine NEG (NEG); Protein,Urine 30 mg/dL (NEG); Specific Gravity,Urine 1.015 (1.000-1.035); Urine Blood NEG mg/dL (<0.03); Urine Budding Yeast FEW /hpf (0); Urine Hyaline Cast 18 /lpf (0-2); Urine RBC < 1 /hpf (0-1); Urine Squamous Epithelial Cell < 1 /hpf (0-4); Urine Transitional Epi Cells 2 /hpf (0-2); Urine WBC 4 /hpf (0-4); Urobilinogen,Urine NORM (NEG)
[2018-10-11 03:35] LABS: Alcohol, Urine NONE DETECTED (NONDETECTED); Amphetamine Screen,Urine SUSPECT POSITIVE (NONDETECTED); Barbiturate Screen,Urine NONE DETECTED (NONDETECTED); Benzodiazepines Screen,Urine NONE DETECTED (NONDETECTED); Cannabinoid Screen,Urine NONE DETECTED (NONDETECTED); Cocaine Screen,Urine NONE DETECTED (NONDETECTED); Opiate Screen,Urine SUSPECT POSITIVE (NONDETECTED); Oxycodone, Urine Screen NONE DETECTED (NONDETECTED); Phencyclidine Screen,Urine NONE DETECTED (NONDETECTED)
[2018-10-11] MEDS ORDERED: ONDANSETRON 4 MG/2 ML VIAL ONE (03:55)
[2018-10-11 04:34] LABS: Basophils # (Auto) 0 K/mcL (0.0-0.3); Basophils % (Auto) 0.4 % (0.0-2.0); Eosinophils # (Auto) 0.1 K/mcL (0.0-0.7); Eosinophils % (Auto) 1.2 % (0.0-7.0); Granulocytes % (Auto) 70.9 % (38.0-78.0); Hemoglobin 9.8 g/dL (13.5-16.5); Lymphocytes # (Auto) 1.8 K/mcL (1.5-4.8); Lymphocytes % (Auto) 23.1 % (15.5-49.0); Mean Cell Volume 82.7 fL (80.0-100.0); Mean Corpuscular HGB Conc 33.8 g/dL (31.0-36.0); Mean Platelet Volume 11.9 fL (7.4-10.4); Monocytes # (Auto) 0.3 K/mcL (0.1-0.9); Monocytes % (Auto) 4.4 % (1.0-12.0); Platelet Count 156 K/mcL (140-440); Red Cell Distribution Width 14.2 % (11.5-14.5); WBC 7.7 K/mcL (4.5-11.0)
[2018-10-11 05:18] LABS: ALT/SGPT 17 U/l (0-40); AST/SGOT 15 U/l (0-37); Albumin 3.4 gm/dL (3.2-5.2); Albumin/Globulin Ratio 1.4 (1.0-2.3); Alkaline Phosphatase 99 U/L (39-117); Bilirubin,Direct < 0.2 mg/dL (0.0-0.3); Bilirubin,Total 0.2 mg/dL (0.0-1.0); Blood Urea Nitrogen 25 mg/dl (6-20); Carbon Dioxide 20 mmol/L (22-30); Chloride 100 mmol/L (96-108); Globulin 2.4 gm/dL (2.2-3.7); Glomerular Filtration Rate 66; Glucose 340 mg/dL (70-105); Lactate Dehydrogenase 120 U/L (94-250); Magnesium 1.5 mg/dL (1.6-2.5); Phosphorous 4.5 mg/dL (2.7-4.5); Potassium 3.7 mmol/L (3.3-5.1); Sodium 134 mmol/L (133-145); Thyroid Stimulating Hormone 4.37 uIU/ml (0.27-5.01)
[2018-10-11 05:31] LABS: Triglycerides 1053 mg/dl (<150)
[2018-10-11] MEDS ORDERED: 0.9 % SODIUM CHLORIDE 10 ML SYRINGE IV SCH (06:00)
[2018-10-11] MEDS ORDERED: INSULIN LISPRO 1 UNIT/0.01 ML UNIT SQ SCH (07:30)
[2018-10-11] MEDS ORDERED: HEPARIN 5,000 UNIT/ML VIAL SQ SCH (09:00)
[2018-10-15 09:07] LABS: Opiate Confirmation POSITIVE (N)
== END 2018-10-11 08:32 | disposition left against medical advice (07) ==
LOC: ED 23:27 → ICU 23:27
PROVIDERS: ADMIT Internal Medicine; ATTEND Internal Medicine

== ENCOUNTER 2020-01-26 23:28 | Inpatient (IN) ==
[2020-01-26] MEDS ORDERED: NALOXONE HCL 0.4 MG/ML VIAL IV ONE (23:38)
[2020-01-26] MEDS ORDERED: 0.9 % SODIUM CHLORIDE 1,000 ML IV ONE (23:38)
[2020-01-26] MEDS ORDERED: 0.9 % SODIUM CHLORIDE 2,000 ML IV ONE (23:46)
[2020-01-27] MEDS ORDERED: 0.9 % SODIUM CHLORIDE 250 ML IV SCH ×3 (00:45→02:59)
[2020-01-27] MEDS ORDERED: NOREPINEPHRINE BITARTRATE 16 MG in 0.9 % SODIUM CHLORIDE 234 ML IV SCH (00:45)
[2020-01-27 01:25] LABS: Basophils # (Auto) 0.03 K/mcL (0.00-0.30); Basophils % (Auto) 0.3 % (0.0-2.0); Eosinophils # (Auto) 0.12 K/mcL (0.00-0.70); Granulocytes % (Auto) 71.9 % (38.0-78.0); Hematocrit 32.5 % (40.1-51.0); Hemoglobin 10.5 g/dL (13.7-17.5); Lymphocytes # (Auto) 2.52 K/mcL (1.50-4.80); Lymphocytes % (Auto) 21.6 % (15.5-49.0); Mean Cell Volume 85.1 fL (80.0-100.0); Mean Corpuscular HGB Conc 32.3 g/dL (31.0-36.0); Mean Platelet Volume 12.3 fL (7.4-10.4); Monocytes # (Auto) 0.61 K/mcL (0.10-0.90); Monocytes % (Auto) 5.2 % (1.0-12.0); Platelet Count 209 K/mcL (140-440); RBC 3.82 M/mcL (4.63-6.08); Red Cell Distribution Width 13.7 % (11.5-14.5); WBC 11.7 K/mcL (4.50-11.00)
[2020-01-27 01:27] LABS: ALT/SGPT 26 U/l (0-40); AST/SGOT 38 U/l (0-37); Albumin 4.1 gm/dL (3.2-5.2); Albumin/Globulin Ratio 1.6 (1.0-2.3); Alkaline Phosphatase 47 U/L (39-117); Bilirubin,Total 0.5 mg/dL (0.0-1.0); Calcium 9.4 mg/dl (8.6-10.4); Carbon Dioxide 21 mmol/L (22-30); Chloride 104 mmol/L (96-108); Globulin 2.6 gm/dL (2.2-3.7); Glucose 153 mg/dL (70-105)
[2020-01-27 01:33] LABS: Blood Urea Nitrogen 26 mg/dl (6-20); Glomerular Filtration Rate 35
--- NOTE | 2020-01-27 02:01 | Emergency Department Note ---
HPI General Chief complaint: Blood Pressure Problem Stated complaint: hypotension Time Seen by Provider: 01/26/20 23:46 Source: EMS Mode of arrival: EMS Limitations: altered mental status and physical limitation History of Present Illness HPI Narrative: Narrative: This 59-year-old male was at home when his called EMS because he was diaphoretic, poorly responsive and seemed cold. EMS described him as feeling very cold and very obtunded. Blood pressure 52/35 at the home. They started an IV. Patient admits to methamphetamines this morning (the morning of 01/26/2020). He is a diabetic patient as well. EMS did a fingerstick with blood sugar 179. He was given Narcan 1 mg and this did not make much difference in his responsiveness but changed his pupils from pinpoint to dilated. Patient has consistently denied to them into us in this emergency room that he has taken any extra medications than his packaged ones and that he only has partaken with methamphetamine. On arrival here at 1134 blood sugar 151. Patient indicates that he has not drank hardly at all or ate very well in the past 2 days since being on methamphetamine. Related Data Home Medications Medication Instructions Recorded Confirmed clopidogrel 75 mg PO AC 09/28/17 04/14/18 lisinopril 10 mg PO DAILY 09/28/17 04/14/18 mirtazapine [Remeron] 30 mg PO AC 09/28/17 04/14/18 pantoprazole [Protonix] 20 mg PO AC 09/28/17 04/14/18 sertraline [Zoloft] 50 mg PO AC 09/28/17 04/14/18 tizanidine [Zanaflex] 8 mg PO TID 09/28/17 04/14/18 trazodone 150 - 300 mg PO 09/28/17 04/14/18 albuterol sulfate [Ventolin HFA] 1 - 2 puff INH Q4HP PRN 11/29/17 04/14/18 amitriptyline 10 mg PO HS 11/29/17 11/29/17 atorvastatin 40 mg PO AC 11/29/17 04/14/18 carbamazepine 100 mg PO BID 11/29/17 04/14/18 dorzolamide-timolol 2 drp OU BID 11/29/17 04/14/18 fluticasone propionate [Flovent 1 puff INH BID 11/29/17 04/14/18 HFA] insulin aspart U-100 [Novolog 20 unit SQ TIDAC 11/29/17 04/14/18 U-100 Insulin aspart] latanoprost 1 gtt OU HS 11/29/17 04/14/18 meloxicam 7.5 mg PO DAILY 11/29/17 04/14/18 umeclidinium [Incruse Ellipta] 62.5 mcg IH DAILY 11/29/17 04/14/18 fenofibrate [Fenoglide] 160 mg PO AC 04/14/18 04/14/18 insulin glargine [Lantus U-100 70 unit SQ BID 04/14/18 04/14/18 Insulin] clopidogrel 75 mg PO DAILY 01/27/20 01/27/20 Previous Rx's Medication Instructions Recorded omega-3 fatty acids 1,000 mg PO TID #90 cap 04/15/18 Allergies Allergy/AdvReac Type Severity Reaction Status Date / Time No Known Drug Allergies Allergy Verified 12/02/18 16:45 Review of Systems ROS ROS Narrative: Narrative: No fevers. Was sweaty earlier. Has some chest pains off and on chronically. Has a history of stents x3 Has had some cough and wheezing and shortness of breath. Admits to some abdominal pain but no nausea. He vomited once. He has had some diarrhea. No constipation or hematochezia No dysuria or frequency Has headaches and some lightheadedness and dizziness. He is a bit sleepy. He indicates he commonly goes to sleep around 4 5 in the afternoon and sleeps until we morning hours. He is on clopidogrel as anticoagulation presumably for his stents. For his diabetes he takes glimepiride but no insulin. [facility] Narrative Patient History Narrative: Narrative: Medical/Surgical/Family History All Active Problems (Updated 01/27/20 @ 02:00 by Chriss Dorsey DO) Abdominal pain (Acute) Hyponatremia (Acute) Elevated lactic acid level (Acute) Hyperglycemia (Acute) Fever (Acute) Obtundation (Acute) Hypotension (Acute) Anemia of chronic disease (Acute) Acute renal failure (ARF) (Acute) Dehydration (Acute) Methamphetamine abuse (Acute) CAD (coronary artery disease) (Chronic) Essential hypertension (Chronic) Diabetic renal disease (Chronic) Chronic obstructive lung disease (Chronic) Cigarette smoker (Chronic) Uncontrolled type 2 diabetes mellitus (Chronic) Fibromyalgia (Chronic) Diabetic cheirarthropathy (Chronic) Encounter for long-term (current) use of high-risk medication (Chronic) Raynaud phenomenon (Chronic) Buerger's disease (Chronic) BPH (benign prostatic hyperplasia) (Chronic) Colitis, ulcerative (Chronic) Diastasis of muscle (Chronic) Hyperglyceridemia (Chronic) Low back pain (Chronic) Obesity (Chronic) Raynauds syndrome (Chronic) Seizures (Chronic) Sexual dysfunction (Chronic) AUGUSTUS positive (Acute) Diabetes mellitus (Chronic) Diabetic neuropathy (Chronic) Depressive disorder (Chronic) Tobacco dependence syndrome (Chronic) Insomnia (Chronic) Obstructive sleep apnea of adult (Chronic) Chronic pain (Chronic 11/26/12) Epilepsy (Chronic 11/26/12) Glaucoma (Chronic) Hypertensive retinopathy (Chronic) Cataract (Chronic) GERD (gastroesophageal reflux disease) (Chronic) Multiple joint pain (Chronic) Lumbar radiculopathy (Chronic) Chronic back pain (Chronic) Degenerative, intervertebral disc (Chronic) Hypoxia (Chronic) Medical History (Updated 01/27/20 @ 02:00 by Chriss Dorsey DO) Acute kidney injury (Resolved) AUGUSTUS positive (Acute) BPH (benign prostatic hyperplasia) (Chronic) Buerger's disease (Chronic) CAD (coronary artery disease) (Chronic) Cataract (Chronic) Chronic back pain (Chronic) Chronic obstructive lung disease (Chronic) Chronic pain (Chronic 11/26/12) Cigarette smoker (Chronic) Colitis, ulcerative (Chronic) Connective tissue disease (Suspected) Degenerative, intervertebral disc (Chronic) Depressive disorder (Chronic) Diabetes mellitus (Chronic) Diabetic cheirarthropathy (Chronic) Diabetic hyperosmolar non-ketotic state (Resolved) Diabetic ketoacidosis (Resolved) Diabetic neuropathy (Chronic) Diabetic renal disease (Chronic) Diastasis of muscle (Chronic) Drug overdose (Resolved) Encounter for long-term (current) use of high-risk medication (Chronic) Epilepsy (Chronic 11/26/12) Essential hypertension (Chronic) Exhaustion, heat, due to water depletion (Resolved) Fibromyalgia (Chronic) GERD (gastroesophageal reflux disease) (Chronic) Glaucoma (Chronic) Hyperglycemia due to type 1 diabetes mellitus (Resolved) Hyperglyceridemia (Chronic) Hypertensive retinopathy (Chronic) Hyponatremia (Resolved) Hypoxia (Chronic) Insomnia (Chronic) Low back pain (Chronic) Lumbar radiculopathy (Chronic) Melena (Resolved) Mental and behavioral problem in adult (Resolved) Multiple joint pain (Chronic) Obesity (Chronic) Obstructive sleep apnea of adult (Chronic) Raynaud phenomenon (Chronic) Raynauds syndrome (Chronic) Respiratory failure (Resolved) Seizures (Chronic) Sexual dysfunction (Chronic) Suicidal ideation (Resolved) Tobacco dependence syndrome (Chronic) Uncontrolled type 2 diabetes mellitus (Chronic) Surgical History (Updated 10/11/18 @ 02:05 by Krupa Tavares MD) History of bilateral cataract extraction (Chronic) History of cholecystectomy (Chronic) History of elbow surgery (Chronic) left History of foot surgery (Chronic) left ankle History of left knee surgery (Chronic) 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 At times actually seems a bit alert. Other times seems to go back to sleep fairly easily or look "droopy eyed".) and other (General he seems quite pale and his face.) Head Head: Present atraumatic and normocephalic Eye Eye: Present normal appearance, PERRL and EOMI ENT ENT: Present normal oropharynx and mucous membranes moist Neck Neck: Present trachea midline; Absent lymphadenopathy and thyromegaly Chest Chest: Present symmetric chest wall rise Respiratory Respiratory: Present normal lung sounds bilaterally; Absent respiratory distress, rales/crackles, wheezes, stridor, accessory muscle use and prolonged expiratory phase Cardiovascular Cardiovascular: Present regular rate and normal rhythm; Absent systolic murmur and diastolic murmur Adbominal Abdominal: Present soft and tenderness (Mild, subjective; diffuse.); Absent distention, guarding, rebound, rigidity, organomegaly and mass Extremities Extremities: Present normal capillary refill ([place] great toes with 1-1/2-second capillary refill.); Absent pedal edema, pretibial edema, calf tenderness and cyanosis Back Back: Absent CVA tenderness (R), CVA tenderness (L) and spinous process tenderness Neurological Neurological: Present alert (When spoken to. Otherwise easily sleeps.) and oriented X3 Psychiatric Psychiatric: Present serious, polite and pleasant; Absent depressed, agitated and anxious Skin Skin: Present cool (Some skin areas seem very cool.) and dry; Absent diaphor etic, hives, cyanosis, erythema, pallor and mottled Course Vital Signs Vital signs: Vital Signs Temperature 95.0 F L 01/26/20 23:29 Pulse Rate 75 01/26/20 23:29 Respiratory Rate 17 01/26/20 23:29 Blood Pressure 62/44 01/26/20 23:29 Pulse Oximetry (%) 95 01/26/20 23:29 Temperature 95.0 F L 01/26/20 23:29 Pulse Rate 50 L 01/27/20 01:16 Respiratory Rate 17 01/26/20 23:29 Blood Pressure 95/70 01/27/20 01:16 Pulse Oximetry (%) 99 01/27/20 01:16 MDM MDM Narrative Medical decision making narrative: Narrative: 11:35 PM - acute/new obtundation, diaphoresis, cold temperature to touching his skin, and admits to methamphetamine use less than 16 hours ago. We will do multiple labs. EKG with questionable changes of anterior infarct but these are stable and unchanging compared to previous EKGs. I spoke with patient and he would like to be a full code. An additional amp of Narcan did not make any changes in his responsiveness. A second liter was given. Patient's blood pressures were persistently in the upper 70s and lower 80s systolic. At the end of the second liter decision was made to begin Levophed. His blood pressures quickly came up to the 100-110 range. Lab results: Slightly elevated white count at 11.7. H&H relatively stable at 10.5/32.5. Electrolytes fairly unremarkable. BUN and creatinine are significantly abnormal, new at 26 and 2.0. Previous other 0.9-1.6 but mostly in the 1.0-1.2 range. This suggests significant renal failure versus dehydration. Chest x-ray not available to review. 1:45 AM approximately - I spoke with Dr. Fields, hospitalist, who accepts this patient and will be down to see him here in the emergency room. Lab Data Result diagrams: 01/26/20 23:59 01/26/20 23:59 Labs: Lab Results 01/26/20 01/26/20 01/26/20 Range/Units 23:59 23:59 23:59 WBC 11.7 H (4.50-11.00) K/mcL RBC 3.82 L (4.63-6.08) M/mcL Hgb 10.5 L (13.7-17.5) g/dL Hct 32.5 L (40.1-51.0) % MCV 85.1 (80.0-100.0) fL MCH 27.5 (26.0-34.0) pg MCHC 32.3 (31.0-36.0) g/dL RDW 13.7 (11.5-14.5) % Plt Count 209 (140-440) K/mcL MPV 12.3 H (7.4-10.4) fL Gran % 71.9 (38.0-78.0) % Lymph % (Auto) 21.6 (15.5-49.0) % Vernon % (Auto) 5.2 (1.0-12.0) % Eos % (Auto) 1.0 (0.0-7.0) % Baso % (Auto) 0.3 (0.0-2.0) % Gran # 8.40 H (1.80-8.00) K/mcL Lymph # (Auto) 2.52 (1.50-4.80) K/mcL Vernon # (Auto) 0.61 (0.10-0.90) K/mcL Eos # (Auto) 0.12 (0.00-0.70) K/mcL Baso # (Auto) 0.03 (0.00-0.30) K/mcL D-Dimer 1.01 H (0.00-0.40) ug/ml Sodium 140 (133-145) mmol/L Potassium 3.9 (3.3-5.1) mmol/L Chloride 104 (96-108) mmol/L Carbon Dioxide 21 L (22-30) mmol/L Anion Gap 15.0 (8-16) BUN 26 H (6-20) mg/dl Creatinine 2.0 H (0.7-1.2) mg/dl GFR Calculation 35 Glucose 153 H (70-105) mg/dL Calcium 9.4 (8.6-10.4) mg/dl Total Bilirubin 0.5 (0.0-1.0) mg/dL AST 38 H (0-37) U/l ALT 26 (0-40) U/l Alkaline Phosphatase 47 (39-117) U/L Troponin T (0-0.03) ng/ml Total Protein 6.7 (5.9-8.4) gm/dL Albumin 4.1 (3.2-5.2) gm/dL Globulin 2.6 (2.2-3.7) gm/dL Albumin/Globulin Ratio 1.6 (1.0-2.3) 01/26/20 Range/Units 23:59 WBC (4.50-11.00) K/mcL RBC (4.63-6.08) M/mcL Hgb (13.7-17.5) g/dL Hct (40.1-51.0) % MCV (80.0-100.0) fL MCH (26.0-34.0) pg MCHC (31.0-36.0) g/dL RDW (11.5-14.5) % Plt Count (140-440) K/mcL MPV (7.4-10.4) fL Gran % (38.0-78.0) % Lymph % (Auto) (15.5-49.0) % Vernon % (Auto) (1.0-12.0) % Eos % (Auto) (0.0-7.0) % Baso % (Auto) (0.0-2.0) % Gran # (1.80-8.00) K/mcL Lymph # (Auto) (1.50-4.80) K/mcL Vernon # (Auto) (0.10-0.90) K/mcL Eos # (Auto) (0.00-0.70) K/mcL Baso # (Auto) (0.00-0.30) K/mcL D-Dimer (0.00-0.40) ug/ml Sodium (133-145) mmol/L Potassium (3.3-5.1) mmol/L Chloride (96-108) mmol/L Carbon Dioxide (22-30) mmol/L Anion Gap (8-16) BUN (6-20) mg/dl Creatinine (0.7-1.2) mg/dl GFR Calculation Glucose (70-105) mg/dL Calcium (8.6-10.4) mg/dl Total Bilirubin (0.0-1.0) mg/dL AST (0-37) U/l ALT (0-40) U/l Alkaline Phosphatase (39-117) U/L Troponin T < 0.01 (0-0.03) ng/ml Total Protein (5.9-8.4) gm/dL Albumin (3.2-5.2) gm/dL Globulin (2.2-3.7) gm/dL Albumin/Globulin Ratio (1.0-2.3) Discharge Plan Patient/Caregiver Discharge Instructions Pt seen by MAGAZINE WORKER/PA only: No Clinical Impression: Obtundation, Anemia of chronic disease, Dehydration, Methamphetamine abuse Hypotension Qualifiers: Hypotension type: hypotension due to hypovolemia Qualified Code(s): I95.89 - Other hypotension Acute renal failure (ARF) Qualifiers: Acute renal failure type: unspecified Qualified Code(s): N17.9 - Acute kidney failure, unspecified Patient Disposition: Xfer As Inpt ([facility]) Follow up with: Jennifer Hernandez ARNP [Primary Care Provider] - Prescriptions: No Action pantoprazole [Protonix] 20 MG Tablet.Dr 20 mg PO AC RF: 0 mirtazapine [Remeron] 30 MG Tablet 30 mg PO AC RF: 0 trazodone 150 MG Tablet 150 - 300 mg PO HS RF: 0 lisinopril 10 MG Tablet 10 mg PO DAILY RF: 0 sertraline [Zoloft] 25 MG Tablet 50 mg PO AC RF: 0 tizanidine [Zanaflex] 4 MG Capsule 8 mg PO TID RF: 0 clopidogrel 300 MG Tablet 75 mg PO AC RF: 0 atorvastatin 40 MG tablet 80 mg PO AC RF: 0 meloxicam 7.5 MG Tablet 7.5 mg PO DAILY RF: 0 insulin aspart U-100 [Novolog U-100 Insulin aspart] 100 UNIT/ML Vial 20 unit SQ TIDAC RF: 0 carbamazepine 100 MG Tab.Chew 100 mg PO BID RF: 0 fluticasone propionate [Flovent HFA] 1 PUFF Inhaler 1 puff INH BID RF: 0 umeclidinium [Incruse Ellipta] 62.5 MCG Blst.W.Dev 62.5 mcg IH DAILY RF: 0 latanoprost 1 GTT Bottle 1 gtt OU HS RF: 0 amitriptyline 10 MG Tablet 10 mg PO HS RF: 0 dorzolamide-timolol 10 ML Drops 2 drp OU BID RF: 0 albuterol sulfate [Ventolin HFA] 1 PUFF Inhaler 1 - 2 puff INH Q4HP PRN (Reason: Shortness Of Breath) RF: 0 fenofibrate [Fenoglide] 120 MG Tablet 160 mg PO AC RF: 0 insulin glargine [Lantus U-100 Insulin] 1 UNIT/0.01 ML Unit 70 unit SQ BID RF: 0 omega-3 fatty acids 1,000 MG capsule 1,000 mg PO TID Qty: 90 RF: 0 clopidogrel 75 mg tablet 75 mg PO DAILY RF: 0
[2020-01-27] MEDS ORDERED: LORazepam 2 MG/ML VIAL IV PRN ×2 (02:19→02:59)
[2020-01-27] MEDS ORDERED: PROMETHAZINE 25 MG/ML VIAL IV PRN ×2 (02:19→02:59)
[2020-01-27] MEDS ORDERED: DEXTROSE 50% 50 ML VIAL IV PRN ×2 (02:28→02:59)
[2020-01-27] MEDS ORDERED: ALBUTEROL SULFATE 200 PUFF INHALER INH PRN ×2 (02:30→02:59)
[2020-01-27] MEDS ORDERED: 0.9 % SODIUM CHLORIDE 1,000 ML IV SCH ×2 (02:30→02:59)
[2020-01-27] MEDS ORDERED: ASPIRIN 325 MG TABLET.DR PO SCH (02:30)
[2020-01-27 03:57] LABS: INR 1.1 (0.9-1.1); Prothrombin Time 14.5 sec (11.9-14.5)
--- NOTE | 2020-01-27 04:00 | XRay Report ---
CLINICAL INFORMATION: Hypotension COMPARISON: 10/11/2018 TECHNIQUE: PA and Lateral views FINDINGS: The heart size, mediastinum and pulmonary vessels are unremarkable. The lungs are clear. There are no effusions. The bones and soft tissues are within normal limits. IMPRESSION: Normal chest. Interpreted and Authenticated by: Zeus Lindsay 01/27/20
[2020-01-27 04:05] LABS: Creatine Kinase MB 10.9 ng/ml (0-4.9); proBNP 857.1 pg/ml (0-125)
[2020-01-27 04:06] LABS: Creatine Kinase 411 IU/L (24-195)
[2020-01-27 04:07] LABS: Triglycerides 470 mg/dl (<150)
[2020-01-27] MEDS ORDERED: 0.9 % SODIUM CHLORIDE 10 ML SYRINGE IV SCH ×2 (06:00)
[2020-01-27] MEDS ORDERED: INSULIN LISPRO 1 UNIT/0.01 ML UNIT SQ SCH ×2 (06:00)
[2020-01-27] MEDS ORDERED: PANTOPRAZOLE 40 MG VIAL IV SCH ×2 (07:30)
[2020-01-27] MEDS ORDERED: CHLORHEXIDINE GLUCONATE 1 ML ORAL.SOL SWABMOUTH SCH ×2 (09:00)
[2020-01-27] MEDS ORDERED: ASPIRIN 81 MG TAB.CHEW PO SCH (09:00)
[2020-01-27] MEDS ORDERED: carBAMazepine 100 MG TAB.CHEW PO SCH ×2 (09:00)
[2020-01-27] MEDS ORDERED: FENOFIBRATE NANOCRYSTALLIZED 145 MG PO SCH (09:00)
[2020-01-27] MEDS ORDERED: CLOPIDOGREL 75 MG TABLET PO SCH ×2 (09:00)
[2020-01-27] MEDS ORDERED: ATORVASTATIN 40 MG TABLET PO SCH ×2 (09:00)
[2020-01-27] MEDS ORDERED: HEPARIN 5,000 UNIT/ML VIAL SQ SCH ×2 (09:00)
[2020-01-27] MEDS ORDERED: FENOFIBRATE 43 MG CAPSULE PO SCH (09:00)
--- NOTE | 2020-01-27 09:49 | Internal Med History&Physical ---
HPI History of Present Illness Patient information: Note initiated : 01/27/20 at 9:39 am Service Date, if different from initiated Date: [] Patient: Jordi Nice a 59 y/o M admitted on 01/27/20 for Hypotension. Chief Complaint: [] History of present illness: Mr. Nice is a 59 year old M with a history of diabetes type 2, current smoker, CAD, and substance abuse who was brought to the ER due to confusion. Patient was found by that he was diaphoretic and poorly responsive. The called the EMS who found him to have will hypotension 50+. 1 dose Narcan 1mg was given which he changed his pupils from pinpoint to dilated. In the ER, he was given IV fluid bolus but he did not respond to fluid resuscitation. Eventually Levophed was started. When I saw this patient in the ER, he was sleepy but he was arousable. He could answer my questions appropriately. He admits he uses methamphetamine 3 times a week and is a current smoker. But he denied drinking alcohol. Other than other than the symptoms mentioned above, patient also complains of dizziness. Otherwise he denied headache shortness of breath, nausea, vomiting, abdominal pain (but tenderness on exam), fever, chills, or dysuria. Review of Systems All systems: reviewed and no additional remarkable complaints except as stated PFSH PFSH All Active Problems Abdominal pain (Acute) Hyponatremia (Acute) Elevated lactic acid level (Acute) Hyperglycemia (Acute) Fever (Acute) Obtundation (Acute) Hypotension (Acute) Anemia of chronic disease (Acute) Acute renal failure (ARF) (Acute) Dehydration (Acute) Methamphetamine abuse (Acute) CAD (coronary artery disease) (Chronic) Essential hypertension (Chronic) Diabetic renal disease (Chronic) Chronic obstructive lung disease (Chronic) Cigarette smoker (Chronic) Uncontrolled type 2 diabetes mellitus (Chronic) Fibromyalgia (Chronic) Diabetic cheirarthropathy (Chronic) Encounter for long-term (current) use of high-risk medication (Chronic) Raynaud phenomenon (Chronic) Buerger's disease (Chronic) BPH (benign prostatic hyperplasia) (Chronic) Colitis, ulcerative (Chronic) Diastasis of muscle (Chronic) Hyperglyceridemia (Chronic) Low back pain (Chronic) Obesity (Chronic) Raynauds syndrome (Chronic) Seizures (Chronic) Sexual dysfunction (Chronic) AUGUSTUS positive (Acute) Diabetes mellitus (Chronic) Diabetic neuropathy (Chronic) Depressive disorder (Chronic) Tobacco dependence syndrome (Chronic) Insomnia (Chronic) Obstructive sleep apnea of adult (Chronic) Chronic pain (Chronic 11/26/12) Epilepsy (Chronic 11/26/12) Glaucoma (Chronic) Hypertensive retinopathy (Chronic) Cataract (Chronic) GERD (gastroesophageal reflux disease) (Chronic) Multiple joint pain (Chronic) Lumbar radiculopathy (Chronic) Chronic back pain (Chronic) Degenerative, intervertebral disc (Chronic) Hypoxia (Chronic) Medical History Acute kidney injury (Resolved) AUGUSTUS positive (Acute) BPH (benign prostatic hyperplasia) (Chronic) Buerger's disease (Chronic) CAD (coronary artery disease) (Chronic) Cataract (Chronic) Chronic back pain (Chronic) Chronic obstructive lung disease (Chronic) Chronic pain (Chronic 11/26/12) Cigarette smoker (Chronic) Colitis, ulcerative (Chronic) Connective tissue disease (Suspected) Degenerative, intervertebral disc (Chronic) Depressive disorder (Chronic) Diabetes mellitus (Chronic) Diabetic cheirarthropathy (Chronic) Diabetic hyperosmolar non-ketotic state (Resolved) Diabetic ketoacidosis (Resolved) Diabetic neuropathy (Chronic) Diabetic renal disease (Chronic) Diastasis of muscle (Chronic) Drug overdose (Resolved) Encounter for long-term (current) use of high-risk medication (Chronic) Epilepsy (Chronic 11/26/12) Essential hypertension (Chronic) Exhaustion, heat, due to water depletion (Resolved) Fibromyalgia (Chronic) GERD (gastroesophageal reflux disease) (Chronic) Glaucoma (Chronic) Hyperglycemia due to type 1 diabetes mellitus (Resolved) Hyperglyceridemia (Chronic) Hypertensive retinopathy (Chronic) Hyponatremia (Resolved) Hypoxia (Chronic) Insomnia (Chronic) Low back pain (Chronic) Lumbar radiculopathy (Chronic) Melena (Resolved) Mental and behavioral problem in adult (Resolved) Multiple joint pain (Chronic) Obesity (Chronic) Obstructive sleep apnea of adult (Chronic) Raynaud phenomenon (Chronic) Raynauds syndrome (Chronic) Respiratory failure (Resolved) Seizures (Chronic) Sexual dysfunction (Chronic) Suicidal ideation (Resolved) Tobacco dependence syndrome (Chronic) Uncontrolled type 2 diabetes mellitus (Chronic) Surgical History History of bilateral cataract extraction (Chronic) History of cholecystectomy (Chronic) History of elbow surgery (Chronic) left History of foot surgery (Chronic) left ankle History of left knee surgery (Chronic) 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) first and middle finger Family History Mother , age 54 Malignant tumor of pancreas Father , age 70 Myocardial infarction Social History education level: high school occupational status: unemployed sexually active: Yes smoking status: Current every day smoker alcohol intake frequency: does not drink substance use type: does not use and amphetamines (Most recent use 01/26/2020) seatbelt use: always working smoke detector in home: Yes MEDS/ALLERGIES Home Medications and Allergies Home Medications Medication Instructions Recorded Confirmed Type lisinopril 10 mg PO DAILY 09/28/17 01/27/20 History mirtazapine [Remeron] 30 mg PO AC 09/28/17 01/27/20 History sertraline [Zoloft] 100 mg PO AC 09/28/17 01/27/20 History trazodone 300 mg PO HS 09/28/17 01/27/20 History albuterol sulfate [Ventolin HFA] 1 - 2 puff INH Q4HP PRN 11/29/17 01/27/20 History atorvastatin 80 mg PO DAILY 11/29/17 01/27/20 History carbamazepine 100 mg PO BID 11/29/17 01/27/20 History clopidogrel 75 mg PO DAILY 01/27/20 01/27/20 History fenofibrate nanocrystallized 145 mg PO DAILY 01/27/20 01/27/20 History glimepiride 2 mg PO DAILY 01/27/20 01/27/20 History metformin 500 mg PO 1000 01/27/20 01/27/20 History omeprazole 20 mg PO DAILY 01/27/20 01/27/20 History tizanidine 2 mg PO BID 01/27/20 01/27/20 History Allergies Allergy/AdvReac Type Severity Reaction Status Date / Time No Known Drug Allergies Allergy Verified 12/02/18 16:45 EXAM Constitutional Vitals: Temp Pulse Resp BP Pulse Ox 97.4 F 59 L 19 133/76 97 01/27/20 03:15 01/27/20 07:51 01/27/20 07:59 01/27/20 07:59 01/27/20 07:51 Additional findings Additional findings: General - No acute distress Eyes - PERRLA, EOM intact ENT no rhinorrhea, no noticeable or palpable swelling, no redness or rash around throat or on face Neck supple, no JVD, no thyromegaly Respiratory: Lungs - diminshed BS, no use of accessary muscles. Cardiovascular - RRR no m/r/g, GI - Normal bowel sounds, no distended, soft, diffuse tenderness. Extremeties - No edema, cyanosis or clubbing Hemo/lymphatic/immune no lymphadenopathy Neurological Alert and oriented x 3, no focal neurological deficits. Psychiatry flat affect DATA Data Completed and Pending Labs: Labs from last 24 hours 01/27/20 01/27/20 01/27/20 02:48 02:42 02:42 WBC RBC Hgb Hct MCV MCH MCHC RDW Plt Count MPV Gran % Lymph % (Auto) [place] % (Auto) Eos % (Auto) Baso % (Auto) Gran # Lymph # (Auto) [place] # (Auto) Eos # (Auto) Baso # (Auto) PT INR APTT D-Dimer VBG Lactic Acid Sodium Potassium Chloride Carbon Dioxide Anion Gap BUN Creatinine GFR Calculation Glucose Calcium Phosphorus 4.0 Magnesium 1.8 Total Bilirubin AST ALT Alkaline Phosphatase Total Creatine Kinase 411 H CK-MB (CK-2) 10.9 H Troponin T < 0.01 NT-Pro-B Natriuret Pep 857.1 H Total Protein Albumin Globulin Albumin/Globulin Ratio Triglycerides 470 H Procalcitonin 0.20 01/27/20 01/27/20 01/26/20 02:42 02:42 23:59 WBC RBC Hgb Hct MCV MCH MCHC RDW Plt Count MPV Gran % Lymph % (Auto) [place] % (Auto) Eos % (Auto) Baso % (Auto) Gran # Lymph # (Auto) [place] # (Auto) Eos # (Auto) Baso # (Auto) PT 14.5 INR 1.1 APTT 30 D-Dimer VBG Lactic Acid 0.9 Sodium Potassium Chloride Carbon Dioxide Anion Gap BUN Creatinine GFR Calculation Glucose Calcium Phosphorus Magnesium Total Bilirubin AST ALT Alkaline Phosphatase Total Creatine Kinase CK-MB (CK-2) Troponin T < 0.01 NT-Pro-B Natriuret Pep Total Protein Albumin Globulin Albumin/Globulin Ratio Triglycerides Procalcitonin 01/26/20 01/26/20 01/26/20 23:59 23:59 23:59 WBC 11.7 H RBC 3.82 L Hgb 10.5 L Hct 32.5 L MCV 85.1 MCH 27.5 MCHC 32.3 RDW 13.7 Plt Count 209 MPV 12.3 H Gran % 71.9 Lymph % (Auto) 21.6 [place] % (Auto) 5.2 Eos % (Auto) 1.0 Baso % (Auto) 0.3 Gran # 8.40 H Lymph # (Auto) 2.52 [place] # (Auto) 0.61 Eos # (Auto) 0.12 Baso # (Auto) 0.03 PT INR APTT D-Dimer 1.01 H VBG Lactic Acid Sodium 140 Potassium 3.9 Chloride 104 Carbon Dioxide 21 L Anion Gap 15.0 BUN 26 H Creatinine 2.0 H GFR Calculation 35 Glucose 153 H Calcium 9.4 Phosphorus Magnesium Total Bilirubin 0.5 AST 38 H ALT 26 Alkaline Phosphatase 47 Total Creatine Kinase CK-MB (CK-2) Troponin T NT-Pro-B Natriuret Pep Total Protein 6.7 Albumin 4.1 Globulin 2.6 Albumin/Globulin Ratio 1.6 Triglycerides Procalcitonin A/P Narrative A/P Narrative: 1. Hypotension Unknown etiology. D-dimer mildly elevated. I will order CT angiogram to rule out aortic dissection if necessary. 2 L IV fluid was given Continue IV fluid Continue Levophed 2. Substance abuse - methamphetamine Urine drug screen pending History of positive for methamphetamine and opioid on drug screen As per patient, he uses a methamphetamine 3 times a week Aspirin, added Lipitor. Ativan as needed cut out worker consult 3. Leukocytosis Monitor Repeat CBC in morning 4. CHOLO or CHOLO on CKD. Creatinine 1.0 on 12/02/2018 Avoid nephrotoxic meds Intake and output Repeat renal function in morning 5. DM type 2 Metformin is on hold Insulin sliding scale 6. Abdominal pain Patient has renal disease. Await discussed with the radiologist for CT contrast abd 7. Tobacco dependence Smoking cessation counseling Nicotine patch if necessary 8. CAD, s/p stenting Aspirin and Lipitor 9. DVT prophylaxis: Heparin 10. 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
--- NOTE | 2020-01-27 21:15 | Discharge Summary ---
Discharge Provider Provider Patient information: Note initiated : 01/27/20 at 9:03 pm Service Date, if different from initiated Date: [] Patient: Jordi Nice 59 y/o M admitted on 01/27/20 for Hypotension. Chief Complaint: [] Date of admission: 01/27/20 02:55 Discharge date: 01/27/20 Primary care physician: Jennifer Hernandez Consults: 01/27/20 01:46 Consult to Physician [CONS] Stat Comment: Consulting Provider: Nahid Fields Reason For Exam: Physician to Consult Discharge Meds Discharge Medications Home Medications lisinopril 10 mg PO DAILY 09/28/17 [History Confirmed 01/27/20 Last Taken 01/26/20 13:30] mirtazapine [Remeron] 30 mg PO AC 09/28/17 [History Confirmed 01/27/20 Last Taken 01/26/20 21:00] sertraline [Zoloft] 100 mg PO AC 09/28/17 [History Confirmed 01/27/20 Last Taken 01/26/20 13:30] trazodone 300 mg PO HS 09/28/17 [History Confirmed 01/27/20 Last Taken 01/26/20 21:00] albuterol sulfate [Ventolin HFA] 1 - 2 puff INH Q4HP PRN 11/29/17 [History Confirmed 01/27/20 Last Taken 01/26/20 21:00] atorvastatin 80 mg PO DAILY 11/29/17 [History Confirmed 01/27/20 Last Taken 01/26/20 13:30] carbamazepine 100 mg PO BID 11/29/17 [History Confirmed 01/27/20 Last Taken 01/26/20 21:00] clopidogrel 75 mg PO DAILY 01/27/20 [History Confirmed 01/27/20 Last Taken 01/26/20 13:30] fenofibrate nanocrystallized 145 mg PO DAILY 01/27/20 [History Confirmed 01/27/20 Last Taken 01/26/20 13:30] glimepiride 2 mg PO DAILY 01/27/20 [History Confirmed 01/27/20 Last Taken 01/26/20 13:30] metformin 500 mg PO 1000 01/27/20 [History Confirmed 01/27/20 Last Taken 01/26/20 21:00] omeprazole 20 mg PO DAILY 01/27/20 [History Confirmed 01/27/20 Last Taken 01/26/20 13:30] tizanidine 2 mg PO BID 01/27/20 [History Confirmed 01/27/20 Last Taken 01/26/20 21:00] COURSE Hospital Course Hospital course: PT was admitted to ICU due to hypotension and substance abuse (methamphetamine?). The etiology for hypotension has not been identified. He was treated with aggressive fluid resuscitation and levophed which was started in the ER. This morning I was reported that he wanted to go home with ama. Came to pt's room immediately and talked and explained to him. He fully understood the benefits if he can complete the course of treatment and risks including if he can not complete the course of treatment. He did not change mind. I advised him that he can come back to hospital at anytime. If he needs help, call PCP or go to ER immediately. He has a hx of leaving ama. Discharge diagnosis: Hypotension, substance abuse - methamphetamine? Time Spent with Patient Time attestation: Total time spent providing and/or coordinating discharge services: EXAM Constitutional Vitals: Temp Pulse Resp BP Pulse Ox 97.7 F 59 L 19 137/72 97 01/27/20 08:05 01/27/20 07:51 01/27/20 08:05 01/27/20 08:05 01/27/20 08:05 Additional findings Additional findings: General - No acute distress Eyes - PERRLA, EOM intact ENT no rhinorrhea, no noticeable or palpable swelling, no redness or rash around throat or on face Neck supple, no JVD, no thyromegaly Respiratory: Lungs - diminshed BS, no use of accessary muscles. Cardiovascular - RRR no m/r/g, GI - Normal bowel sounds, no distended, soft, diffuse tenderness. Extremeties - No edema, cyanosis or clubbing Hemo/lymphatic/immune no lymphadenopathy Neurological Alert and oriented x 3, no focal neurological deficits. Psychiatry flat affect Discharge Data Data Completed and Pending Labs on day of discharge: Labs from last 24 hours 01/27/20 01/27/20 01/27/20 02:48 02:42 02:42 WBC RBC Hgb Hct MCV MCH MCHC RDW Plt Count MPV Gran % Lymph % (Auto) [place] % (Auto) Eos % (Auto) Baso % (Auto) Gran # Lymph # (Auto) [place] # (Auto) Eos # (Auto) Baso # (Auto) PT INR APTT D-Dimer VBG Lactic Acid Sodium Potassium Chloride Carbon Dioxide Anion Gap BUN Creatinine GFR Calculation Glucose Calcium Phosphorus 4.0 Magnesium 1.8 Total Bilirubin AST ALT Alkaline Phosphatase Total Creatine Kinase 411 H CK-MB (CK-2) 10.9 H Troponin T < 0.01 NT-Pro-B Natriuret Pep 857.1 H Total Protein Albumin Globulin Albumin/Globulin Ratio Triglycerides 470 H Procalcitonin 0.20 01/27/20 01/27/20 01/26/20 02:42 02:42 23:59 WBC RBC Hgb Hct MCV MCH MCHC RDW Plt Count MPV Gran % Lymph % (Auto) [place] % (Auto) Eos % (Auto) Baso % (Auto) Gran # Lymph # (Auto) [place] # (Auto) Eos # (Auto) Baso # (Auto) PT 14.5 INR 1.1 APTT 30 D-Dimer VBG Lactic Acid 0.9 Sodium Potassium Chloride Carbon Dioxide Anion Gap BUN Creatinine GFR Calculation Glucose Calcium Phosphorus Magnesium Total Bilirubin AST ALT Alkaline Phosphatase Total Creatine Kinase CK-MB (CK-2) Troponin T < 0.01 NT-Pro-B Natriuret Pep Total Protein Albumin Globulin Albumin/Globulin Ratio Triglycerides Procalcitonin 01/26/20 01/26/20 01/26/20 23:59 23:59 23:59 WBC 11.7 H RBC 3.82 L Hgb 10.5 L Hct 32.5 L MCV 85.1 MCH 27.5 MCHC 32.3 RDW 13.7 Plt Count 209 MPV 12.3 H Gran % 71.9 Lymph % (Auto) 21.6 [place] % (Auto) 5.2 Eos % (Auto) 1.0 Baso % (Auto) 0.3 Gran # 8.40 H Lymph # (Auto) 2.52 [place] # (Auto) 0.61 Eos # (Auto) 0.12 Baso # (Auto) 0.03 PT INR APTT D-Dimer 1.01 H VBG Lactic Acid Sodium 140 Potassium 3.9 Chloride 104 Carbon Dioxide 21 L Anion Gap 15.0 BUN 26 H Creatinine 2.0 H GFR Calculation 35 Glucose 153 H Calcium 9.4 Phosphorus Magnesium Total Bilirubin 0.5 AST 38 H ALT 26 Alkaline Phosphatase 47 Total Creatine Kinase CK-MB (CK-2) Troponin T NT-Pro-B Natriuret Pep Total Protein 6.7 Albumin 4.1 Globulin 2.6 Albumin/Globulin Ratio 1.6 Triglycerides Procalcitonin Discharge Plan Patient/Caregiver Discharge Instructions Instructions: Against Medical Advice (DC) Prescriptions: No Action mirtazapine [Remeron] 30 MG tablet 30 mg PO AC RF: 0 trazodone 150 MG tablet 300 mg PO HS RF: 0 lisinopril 10 MG tablet 10 mg PO DAILY RF: 0 sertraline [Zoloft] 25 MG tablet 100 mg PO AC RF: 0 atorvastatin 40 MG tablet 80 mg PO DAILY RF: 0 carbamazepine 100 MG tablet,chewable 100 mg PO BID RF: 0 albuterol sulfate [Ventolin HFA] 1 PUFF HFA aerosol inhaler 1 - 2 puff INH Q4HP PRN (Reason: Shortness Of Breath) RF: 0 clopidogrel 75 mg tablet 75 mg PO DAILY RF: 0 fenofibrate nanocrystallized 145 mg tablet 145 mg PO DAILY RF: 0 tizanidine 2 mg tablet 2 mg PO BID RF: 0 glimepiride 2 mg tablet 2 mg PO DAILY RF: 0 omeprazole 20 mg capsule,delayed release(DR/EC) 20 mg PO DAILY RF: 0 metformin 500 mg tablet extended release 24 hr 500 mg PO 1000 RF: 0 Follow Up Plan Follow up with: Jennifer Hernandez ARNP [Primary Care Provider] - Patient Disposition: Left Against Medical Advice Discharge Date/Time: 01/27/20 08:11 Discharge Orders: Discharge Order (Routine); Ordered 01/27/20 Ordered By: Nahid Fields Discharge Comment: Patient left against medical advice QUALITY VTE Deep Vein Thrombosis/Pulmonary Embolism Present on Admission: No
[2020-01-28] MEDS ORDERED: NOREPINEPHRINE BITARTRATE 16 MG in 0.9 % SODIUM CHLORIDE 234 ML IV SCH (00:45)
[2020-01-28] MEDS ORDERED: PNEUMOCOCCAL 23-VAL P-SAC VAC 0.5 ML SYRINGE IM ONE (10:00)
== END 2020-01-27 08:11 | disposition left against medical advice (07) | DRG 315 ==
LOC: ED 23:28 → ICU 01-27 02:55
PROVIDERS: ADMIT Internal Medicine; ATTEND Internal Medicine